=== PATIENT | female | born 1965 | race Caucasian/White ===

== ENCOUNTER → 2024-04-02 | Outpatient (CLI) | payer OTHER, SELFPAY ==
--- NOTE | 2024-04-02 13:54 | US_ITS ---
STUDY: THYROID ULTRASOUND REASON FOR EXAM: Female, 58 years old. MUTATION OF MUTYH GENE TECHNIQUE: Ultrasound evaluation of the thyroid was performed with real-time and static bear-scale imaging. COMPARISON: None. FINDINGS: RIGHT LOBE: The right lobe of the thyroid gland measures 4.9 x 2.1 x 1.9 cm. There is a heterogeneous echotexture. There are no demonstrated solid, cystic or complex lesions. LEFT LOBE: The left lobe of the thyroid gland measures 4.4 x 2 x 1.4 cm. There is a heterogeneous echotexture. Hypoechoic nodule measures 8 x 7 x 5 mm. It appears wider than tall does not have internal color blood flow or echogenic calcifications. It is gently lobulated and relatively well circumscribed. ISTHMUS: The isthmus measures 4 mm . The regional lymph nodes are normal. US/Thyroid IMPRESSION: Left thyroid nodule. This nodule is solid or almost completely solid, hypoechoic, asabf-bhho-tqrs, margins cannot be determined and contains no echogenic foci. TI-RADS points: 4. TI-RADS category: TR4. This nodule is moderately suspicious but no FNA or follow-up is necessary given the small size of this nodule. Electronically Signed: Roque Hitchcock MD at 14:47 EST ,
== END | disposition home or self-care (01) ==
PROVIDERS: PCP Internal Medicine; Referring Provider Internal Medicine; Visit Provider Internal Medicine
DX: D12.6 Benign neoplasm of colon, unspecified (principal); Z15.09 Genetic susceptibility to other malignant neoplasm
CPT/HCPCS: 76536

== ENCOUNTER → 2024-07-03 | Outpatient (CLI) | payer OTHER, SELFPAY ==
--- NOTE | 2024-07-03 10:56 | BI_ITS ---
PROCEDURE: SCRN MAMM (CAD)W/CEASAR BILAT REASON FOR EXAM: F, Age 59 y/o, mother with breast cancer. Grandmother with breast cancer. Aunts with breast cancer. TECHNIQUE: Bilateral screening digital breast tomosynthesis with 2D and 3D images. Computer aided detection. COMPARISON: No prior study available for comparison at this time. FINDINGS: There are scattered areas of fibroglandular density. Small bilateral benign- appearing axillary lymph nodes. No suspicious masses, areas of developing architectural distortion, or suspicious calcifications. BI/SCRN MAMM (CAD)W/CEASAR BILAT IMPRESSION: BI-RADS 2: BENIGN. RECOMMEND ANNUAL MAMMOGRAPHIC SCREENING. Follow-up code: Routine Follow-up The patient will be notified of the results by letter. Reading Location: [id number]
== END | disposition home or self-care (01) ==
LOC: OPBI 10:55
PROVIDERS: PCP Internal Medicine; Referring Provider Nurse Practitioner Family; Visit Provider Nurse Practitioner Family
DX: Z12.31 Encounter for screening mammogram for malignant neoplasm of breast (principal); Z80.3 Family history of malignant neoplasm of breast
CPT/HCPCS: 77063; 77067

== ENCOUNTER 2024-12-12 10:40 | Day surgery (SDC) | payer OTHER, SELFPAY ==
--- NOTE | 2024-12-12 10:51 | PCM.PRE.AN2 ---
ASA Classification* ASA Classification ASA Classification: 2 Assessment & Plan Anesthesia* Anesthesia Assessment Anesthesia Assessment: Discussed sedation and/or anesthesia options, risks, benefits, and alternatives with patient/parents/legal guardian/POA. Questions invited. The patient/parents/legal guardian/POA seems to understand and agrees to proceed with anesthesia plan. Reviewed the physical assessment, medical history, allergy history and patient home medications list prior to surgery/procedure/anesthetic and documented any changes. Performed airway and anesthesia risk assessments. Anesthesia Type Anesthesia Type: MAC Anesthesia Focused Assessment* Airway Assessment Mouth opens: >3 cm Mallampati Score: II Labs Anesthesia Preop lab: CBC CHEMISTRY COAG Pre-Assessment Diagnosis/Proposed Procedure Planned Operative Procedure(s): EGD COLONOSCOPY Anesthesia History Anesthesia History - training systems officer: Anesthesia History - training systems officer Hx Hospitalization No 12/10/24 10:15 Any Problems With Anesthesia No 12/10/24 10:15 Cholinesterase deficiency No 12/10/24 10:15 You/Your Family Experience No 12/10/24 10:15 fever (hyperthermia) with Relationship Recent Exposure to Contagious Disease Does patient have nerve No 12/10/24 10:15 stimulator Patient instructed to have device shut off --Does patient have Pacemaker or ICD? When Was Last Pacemaker Check QUESTION #4 FULL TEXT: You/Your Family Experience fever (hyperthermia) with Anesthesia Last Oral Intake Last Oral intake: Last Oral Intake NPO since Meds taken in AM with sips of water? Meds patient instructed to take am of surgery PONV PONV - training systems officer: PONV - training systems officer Female Yes 12/10/24 10:15 HX of Motion Sickness Yes 12/10/24 10:15 HX of N/V After Surgery No 12/10/24 10:15 Non-Smoker Yes 12/10/24 10:15 Duration of Surgery greater No 12/10/24 10:15 than 60 minutes Number of Risk Factors 3 12/10/24 10:15 PONV Score Moderate Risk 12/10/24 10:15 Height & Weight Height & Weight: Anesthesia: Height & Weight Height 5 ft 4 in 10/17/24 11:04 Respiratory Assessment Respiratory Assessment - training systems officer: Respiratory Tract Infection Hx - training systems officer Hx Respiratory Tract Infection No 12/10/24 10:15 STOP Sleep Apnea STOP Sleep Apnea - training systems officer: STOP Sleep Apnea - training systems officer Hx Hypertension Yes 12/10/24 10:15 Hx Sleep Apnea No 12/10/24 10:15 CPAP BIPAP Do you snore loudly (louder No 12/10/24 10:15 than talking or can be heard Do you often feel tired/ No 12/10/24 10:15 fatigued/ sleepy during daytime? Has anyone observed you stop No 12/10/24 10:15 breathing during sleep? STOP Results Negative 12/10/24 10:15 QUESTION #5 FULL TEXT : Do you snore loudly (louder than talking or can be heard through closed doors)? 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 Specify any problems Hx of Preganancy in last 3 No 12/10/24 10:15 Months Nurse Filling Out Transfusion MGRIFFITH 12/10/24 10:15 & Questions: Date: 12/10/24 12/10/24 10:15 Time: 10:15 12/10/24 10:15 Patient unable to answer at this time (ie. confused, unrespo /Reproduction History /Reproductive History - training systems officer: /Reproductive Hx- training systems officer Hx Now No 12/10/24 10:15 Gestational Age (in weeks): EDC: Hx Hx Para Hx Section SAB No 12/10/24 10:15 Active Medications Active Medications: Current Medications Generic Name Dose Route Start Last Admin Trade Name Freq PRN Reason Stop Dose Admin Lactated Ringer's 1,000 mls @ 15 mls/hr 12/12/24 10:45 IV .Q48H GEM PFSH Medical History Wears glasses MRSA infection Gastric reflux Non-smoker Monoallelic mutation of MUTYH gene Anxiety Vision problems Thyroid disease GERD (gastroesophageal reflux disease) High blood pressure Breast lump Back problem Arthritis Seasonal allergies Home Medications ?Medication ?Instructions ?Recorded ?Last Taken ?Type calcium carbonate 600 mg PO QDAY 04/19/24 Unknown History xapcuvmoaob-vzv-ijdtoorue-hrb 1 tab PO DAILY 04/19/24 Unknown History 149-hyalur 500 mg-500 mg-66.7 mg tablet (Jqlfhyiaoee-Chazwrngzav-YHY (with antiox)) montelukast 10 mg tablet 10 mg PO QDAY 04/19/24 Unknown History citalopram 20 mg tablet (Celexa) 40 mg PO QDAY 05/16/24 Unknown History lisinopril 10 mg tablet 10 mg PO QDAY #90 tabs 05/22/24 Unknown Rx fexofenadine 60 mg tablet (Jaz 180 mg PO QDAY 10/17/24 Unknown History Allergy) magnesium 250 mg tablet 400 mg PO QDAY 10/17/24 Unknown History meloxicam 15 mg tablet 15 mg PO QDAY PRN pain 10/17/24 Unknown History metoprolol succinate 50 mg 50 mg PO QDAY #90 tabs 10/31/24 Unknown Rx tablet,extended release 24 hr levothyroxine 50 mcg tablet 50 mcg PO QDAY #90 tabs 11/01/24 Unknown Rx (Synthroid) Allergy/AdvReac Type Severity Reaction Status Date / Time cefdinir (From Omnicef) Allergy Mild unknown Verified 12/07/24 11:23 Family History Father Heart disease Arthritis Cancer skin Diabetes type 2 Hypertension Dementia Urinary retention Kidney disease Mother Age related osteoporosis Hormone disorder related to breast cancer Cancer, Onset Age: 38 breast, hormone related age 38 then age 60 Thyroid disorder Aunt Breast cancer, Onset Age: 63 AAA negative Grandmother Breast cancer Hypertension CVA (cerebral vascular accident) Diabetes Glaucoma Brother Diabetes Hypertension Grandfather Myocardial infarction Aunt Breast cancer Surgical History History of D&C H/O colonoscopy H/O lateral meniscus repair of left knee History of surgery Social History household members: spouse housing: house current occupational status: employed 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
[2024-12-12 11:14] VITALS: BP 153/90; PULSE 74; RESP 16; TEMP 36.2; O2SAT 100; BMI 42.2
[2024-12-12] MEDS: Lactated Ringers 1,000 ML 15 ML IV (11:24)
--- NOTE | 2024-12-12 11:43 | PCM.HP.STD ---
HPI - General General Date of Admission: 01/09/25 Date of Service: 12/12/24 Chief Complaint: GERD and family history of colon cancer HPI Narrative ELISE JARAMILLO, is a 59 F who presents Chief Complaint: Photo surveillance of GERD and family history of colon cancer 1st cousin with colon CA at an early age (30's) - denies any change in bowel habits - denies any bleeding - h/o schatzki's ring - last dilated a few years ago - has trouble with swallowing liquids at times with cold liquids or drinking quickly - denies any trouble swallowing - she discontinued Omeprazole due to possibility of causing polyps - takes PRN - she reports HB is infrequent - she takes Meloxicam PRN - denies any heart or lung disease - non-smoker - rare EtOH use [facility] Medical History Wears glasses MRSA infection Gastric reflux Non-smoker Monoallelic mutation of MUTYH gene Anxiety Vision problems Thyroid disease GERD (gastroesophageal reflux disease) High blood pressure Breast lump Back problem Arthritis Seasonal allergies Home Medications ?Medication ?Instructions ?Recorded ?Last Taken ?Type calcium carbonate 600 mg PO QDAY 04/19/24 12/11/24 History jhvefkrniiy-omg-vrcpiwzyx-hrb 1 tab PO DAILY 04/19/24 12/11/24 History 149-hyalur 500 mg-500 mg-66.7 mg tablet (Xgdfebwxkng-Fzfbqdjrbcc-ALW (with antiox)) montelukast 10 mg tablet 10 mg PO QDAY 04/19/24 12/11/24 History citalopram 20 mg tablet (Celexa) 40 mg PO QDAY 05/16/24 12/11/24 History lisinopril 10 mg tablet 10 mg PO QDAY #90 tabs 05/22/24 12/12/24 06:30 Rx fexofenadine 60 mg tablet (Jaz 180 mg PO QDAY 10/17/24 12/11/24 History Allergy) magnesium 250 mg tablet 400 mg PO QDAY 10/17/24 12/11/24 History meloxicam 15 mg tablet 15 mg PO QDAY PRN pain 10/17/24 12/11/24 History metoprolol succinate 50 mg 50 mg PO QDAY #90 tabs 10/31/24 12/12/24 06:30 Rx tablet,extended release 24 hr levothyroxine 50 mcg tablet 50 mcg PO QDAY #90 tabs 11/01/24 12/11/24 Rx (Synthroid) Allergy/AdvReac Type Severity Reaction Status Date / Time cefdinir (From Omnicef) Allergy Mild unknown Verified 12/07/24 11:23 Family History Father Heart disease Arthritis Cancer skin Diabetes type 2 Hypertension Dementia Urinary retention Kidney disease Mother Age related osteoporosis Hormone disorder related to breast cancer Cancer, Onset Age: 38 breast, hormone related age 38 then age 60 Thyroid disorder Aunt Breast cancer, Onset Age: 63 AAA negative Grandmother Breast cancer Hypertension CVA (cerebral vascular accident) Diabetes Glaucoma Brother Diabetes Hypertension Grandfather Myocardial infarction Aunt Breast cancer Surgical History History of D&C H/O colonoscopy H/O lateral meniscus repair of left knee History of surgery Social History household members: spouse housing: house current occupational status: employed 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, Smoking Status: Never smoker alcohol intake: current alcohol intake frequency: holidays/special occasions only substance use type: does not use what type of physical activity do you participate in: none seatbelt use: always do you feel safe at home: Yes 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 history: 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) ROS Constitutional Constitutional: Denies fatigue, fever(s), poor appetite, weight gain or weight loss Gastrointestinal Gastrointestinal: Denies belching, bloating, change in bowel habits, change in stool character, chewing difficulty, coffee ground emesis, constipation, cramping, diarrhea, dyspepsia, dysphagia, early satiety, excessive flatus, fecal incontinence, heartburn, hematemesis, hematochezia, hemorrhoids, loose stools, melena, nausea, odynophagia, rectal bleeding, tenesmus, vomiting or weight changes Vital Signs Vital Signs Vital Signs: 12/12/24 11:14 12/12/24 11:14 Temperature 97.1 F L Temperature Source Temporal Pulse Rate 74 Respiratory Rate 16 Respiratory Pattern Normal Blood Pressure 153/90 H Blood Pressure Mean 111 Blood Pressure Source Monitor Blood Pressure Position Sitting Blood Pressure Location Right Arm Pulse Ox 100 Oxygen Delivery Method Room Air Weight Weight: 253 lb 8.505 oz Body Mass Index (BMI) 42.2 Physical Exam Const alert, oriented x3, no apparent distress and healthy appearing General Appearance: cooperative GI normal to inspection, nondistended, normoactive bowel sounds, soft to palpation, non-tender and non-distended Percussion: normal to percussion Rectal Exam: deferred Assessment & Plan Assessment/Plan (1) GERD (gastroesophageal reflux disease): (2) H/O colonoscopy: (3) Monoallelic mutation of MUTYH gene: PLAN: Assessment and Plan Assessment and Plan (1) Monoallelic mutation of MUTYH gene: Status: Acute Comment: Genetic testing 08/15/2018, MUTYH, c.536A>G ([id number]). 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 Her last procedures were performed November 2023 and I have requested a copy of her previous procedure reports. She also reports a history of GERD with schatzki's ring, last dilation approximately 3 years ago. HB symptoms are infrequent and is taking PPI PRN. She reports only experiencing dysphagia with cold liquids and drinking fast; denies any dysphagia to solids. She will proceed with bidirectional endoscopies. Note: [employer] speech recognition baggage handling supervisor software was used to create portions of this document. Sound-alike and misspelled words, as well as other baggage handling supervisor errors may be contained in the documentation. Patient Instructions: Colon & EGD - Miralax prep
--- NOTE | 2024-12-12 11:45 | EGD_PTH ---
PATIENT: ELISE JARAMILLO LOC: EN U#:[id number] AGE/SX: 59/F ROOM: RE12/12/[address]: Dr. Rishi Tse DO : 1965 BED: DIS: 12/12/2024 SPEC #: [id number] RECD: 12/12/24 13:35 STATUS: DANIELLA NAVDEEP #: [id number] MALENA: 12/12/24 11:[address]: Rishi Tse DEPT: SURGICAL PATHOLOGY RECD BY: Guanakito Ceja ENTERED: 12/12/24 14:41 SP TYPE: EGD BIOPSY ADALGISA DR: Dr. Marcelina Anderson MD Tissues: A - Esophagus, NOS Procedures: Surgery Specimen Level IV HEADER OPERATION: Colonoscopy, EGD and biopsy PRE-OP DIAGNOSIS: GERD and family history of colon cancer TISSUE SUBMITTED: A- Distal esophagus biopsy MICROSCOPIC DIAGNOSIS A. 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 GROSS DESCRIPTION A. Received in fixative is one container labeled with the patient's name and designated Distal esophagus biopsy. The specimen consists of two irregular fragments of light bermudez tissue that measure 0.3 and 0.5 cm. The specimen is totally submitted in one cassette. OR 12/12/2024 CPT:76252
[2024-12-12 12:40] VITALS: BP 121/65; BP 153/90; PULSE 65; RESP 14; TEMP 36.3; O2SAT 95
--- NOTE | 2024-12-12 12:42 | OP.EGD_ITS ---
Patient Name: Rylee Roper Procedure Date: 12/12/2024 12:15 PM Date of : 1965 Age: 59 Procedure: Upper GI endoscopy Indications: Esophageal reflux Providers: Rishi Tse DO Medicines: Monitored Anesthesia Care Patient Profile: This is a 59 year old female. Refer to note in patient chart for documentation of history and physical. Patient has symptoms of chronic heartburn. Complications: No immediate complications. Procedure: Pre-Anesthesia Assessment: - Prior to the procedure, a History and Physical was performed, and patient medications and allergies were reviewed. The patient is competent. The risks and benefits of the procedure and the sedation options and risks were discussed with the patient. All questions were answered and informed consent was obtained. Patient identification and proposed procedure were verified by the physician in the pre-procedure area. Mental Status Examination: alert and oriented. Airway Examination: normal oropharyngeal airway and neck mobility. Respiratory Examination: clear to auscultation. CV Examination: normal. Prophylactic Antibiotics: The patient does not require prophylactic antibiotics. Prior Anticoagulants: The patient has taken no anticoagulant or antiplatelet agents except for NSAID medication. ASA Grade Assessment: II - A patient with mild systemic disease. After reviewing the risks and benefits, the patient was deemed in satisfactory condition to undergo the procedure. The anesthesia plan was to use monitored anesthesia care (MAC). Immediately prior to administration of medications, the patient was re-assessed for adequacy to receive sedatives. The heart rate, respiratory rate, oxygen saturations, blood pressure, adequacy of pulmonary ventilation, and response to care were monitored throughout the procedure. The physical status of the patient was re-assessed after the procedure. After obtaining informed consent, the endoscope was passed under direct vision. Throughout the procedure, the patient's blood pressure, pulse, and oxygen saturations were monitored continuously. The Colonoscope was introduced through the mouth, and advanced to the second part of duodenum. The upper GI endoscopy was accomplished without difficulty. The patient tolerated the procedure well. Scope In: 12:23:37 PM Scope Out: 12:26:01 PM Total Procedure Duration Time 0 hours 2 minutes 24 seconds Findings: The Z-line was irregular and was found 40 cm from the incisors. Biopsies were taken with a cold forceps for histology. A few diminutive hyperplastic polyps with no bleeding and no stigmata of recent bleeding were found in the gastric fundus and in the gastric body. No gross lesions were noted in the entire examined duodenum. Impression: - Z-line irregular, 40 cm from the incisors. Biopsied. - A few gastric polyps. - No gross lesions in the entire examined duodenum. Recommendation: - Await pathology results. - Repeat upper endoscopy for surveillance. - Continue present medications. Procedure Code(s): --- Professional --- 18422, Esophagogastroduodenoscopy, flexible, transoral; with biopsy, single or multiple CPT copyright 2021 [employer]. All rights reserved. The codes documented in this report are preliminary and upon braille coder review may be revised to meet current compliance requirements. Rishi Tse DO 12/12/2024 12:41:49 PM This report has been signed electronically. Number of Addenda: 0 Note Initiated On: 12/12/2024 12:15 PM
--- NOTE | 2024-12-12 12:42 | OP.PROVAT_ITS ---
12/12/2024 Marcelina Anderson Md Re : Upper GI endoscopy procedure for Rylee Roper Dear Monica This procedure was performed on Thursday, December 12, 2024. My impressions and recommendations are as follows: Impressions : - Z-line irregular, 40 cm from the incisors. Biopsied. - A few gastric polyps. - No gross lesions in the entire examined duodenum. Recommendations : - Await pathology results. - Repeat upper endoscopy for surveillance. - Continue present medications. My findings are described in the full procedure note, which is enclosed. If I can be of further assistance, please feel free to contact me at . Sincerely, Rishi Tse, 12/12/2024 12:41:49 PM This report has been signed electronically.
--- NOTE | 2024-12-12 12:44 | OP.PROVAT_ITS ---
12/12/2024 Marcelina Anderson Md Re : Colonoscopy procedure for Rylee Roper Dear Monica This procedure was performed on Thursday, December 12, 2024. My impressions and recommendations are as follows: Impressions : - Diverticulosis in the recto-sigmoid colon and in the sigmoid colon. - No specimens collected. Recommendations : - Discharge patient to home. - Resume previous diet. - Continue present medications. - Repeat colonoscopy. My findings are described in the full procedure note, which is enclosed. If I can be of further assistance, please feel free to contact me at . Sincerely, Rishi Tse, 12/12/2024 12:43:54 PM This report has been signed electronically.
--- NOTE | 2024-12-12 12:44 | OP.COLON_ITS ---
Patient Name: Rylee Roper Procedure Date: 12/12/2024 12:26 PM Date of : 1965 Age: 59 Procedure: Colonoscopy Indications: Screening for colorectal malignant neoplasm Providers: Rishi Tse DO Medicines: Monitored Anesthesia Care Patient Profile: This is a 59 year old female. Refer to note in patient chart for documentation of history and physical. Patient has symptoms of chronic heartburn. Last Colonoscopy: several years ago. Complications: No immediate complications. Procedure: Pre-Anesthesia Assessment: - Prior to the procedure, a History and Physical was performed, and patient medications and allergies were reviewed. The patient is competent. The risks and benefits of the procedure and the sedation options and risks were discussed with the patient. All questions were answered and informed consent was obtained. Patient identification and proposed procedure were verified by the physician in the pre-procedure area. Mental Status Examination: alert and oriented. Airway Examination: normal oropharyngeal airway and neck mobility. Respiratory Examination: clear to auscultation. CV Examination: normal. Prophylactic Antibiotics: The patient does not require prophylactic antibiotics. Prior Anticoagulants: The patient has taken no anticoagulant or antiplatelet agents except for NSAID medication. ASA Grade Assessment: II - A patient with mild systemic disease. After reviewing the risks and benefits, the patient was deemed in satisfactory condition to undergo the procedure. The anesthesia plan was to use monitored anesthesia care (MAC). Immediately prior to administration of medications, the patient was re-assessed for adequacy to receive sedatives. The heart rate, respiratory rate, oxygen saturations, blood pressure, adequacy of pulmonary ventilation, and response to care were monitored throughout the procedure. The physical status of the patient was re-assessed after the procedure. After I obtained informed consent, the scope was passed under direct vision. Throughout the procedure, the patient's blood pressure, pulse, and oxygen saturations were monitored continuously. The Colonoscope was introduced through the anus and advanced to the cecum, identified by appendiceal orifice and ileocecal valve. The colonoscopy was performed without difficulty. The patient tolerated the procedure well. The quality of the bowel preparation was adequate. The ileocecal valve, appendiceal orifice, and rectum were photographed. Scope In: 12:27:21 PM Scope Withdrawal Time 0 hours 5 minutes 12 seconds Scope Out: 12:35:48 PM Total Procedure Duration Time 0 hours 8 minutes 27 seconds Findings: The perianal and digital rectal examinations were normal. A few small-mouthed diverticula were found in the recto-sigmoid colon and sigmoid colon. Impression: - Diverticulosis in the recto-sigmoid colon and in the sigmoid colon. - No specimens collected. Recommendation: - Discharge patient to home. - Resume previous diet. - Continue present medications. - Repeat colonoscopy. Procedure Code(s): --- Professional --- 39154, Colonoscopy, flexible; diagnostic, including collection of specimen(s) by brushing or washing, when performed (separate procedure) CPT copyright 2021 [employer]. All rights reserved. The codes documented in this report are preliminary and upon clinical coder review may be revised to meet current compliance requirements. Rishi Tse DO 12/12/2024 12:43:54 PM This report has been signed electronically. Number of Addenda: 0 Note Initiated On: 12/12/2024 12:26 PM
--- NOTE | 2024-12-12 12:44 | PCM.POST.ANE ---
Anesthesia: Postop Eval I Current Vital Signs Temperature: 97.4 F Pulse Rate: 61 Blood Pressure: 121/65 Respiratory Rate: 16 Pulse Ox: 96 Oxygen Delivery Method: Room Air Assessment Airway patent: Yes Spontaneous unlabored respirations: Yes Mental status: Asleep nausea: No Vomiting: No Anesthesia Complication: No Fluid Hydration Crystalloid volume administer (ml): 600 Total IV fluid infused: 600 Progress Note Anesthesia document: Postop Eval 1 completed: Yes
[2024-12-12 12:45] VITALS: BP 112/69; BP 121/65; BP 153/90; PULSE 61; PULSE 62; RESP 14; RESP 16; TEMP 36.3; O2SAT 95; O2SAT 96
[2024-12-12 12:50] VITALS: BP 116/65; BP 153/90; PULSE 64; RESP 14; O2SAT 95
[2024-12-12 12:55] VITALS: BP 124/70; BP 153/90; PULSE 60; RESP 14; TEMP 36.2; O2SAT 95
[2024-12-12 13:02] VITALS: BP 153/90
--- OUTSIDE RECORDS SUMMARY | 2024-12-12 13:13 | XMS RPT_ITS | CCD ---
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 Name Role Phone SAMRA DUNN ([facility]) Attending Unavaila Leidy Min Primary Care Physician Mike Peralta III Primary Care Physician MITESH MORSE Attending Unavailable MOODT, HARSH Referring Unavailable MITESH MORSE Attending Unavailable MOODT, HARSH Referring Unavailable BRIAN, OLGA Ortiz Attending Unavailable BRIANOLGA Referring Unavailable MITESH MORSE Attending Unavailable MOODT, HARSH Referring Unavailable MITESH MORSE Attending Unavailable MOODT, HARSH Referring Unavailable Louise Whipple Attending Unavailable LOUISE WHIPPLE MD Attending Provider LOUISE WHIPPLE MD Referring Provider Dr. Marcelina Anderson MD Primary Care Provider [phone] Dr. Marcelina Anderson MD Attending Provider Dr. Marcelina Anderson MD Referring Provider Gladis Mccollum Attending Provider Gladis Mccollum Referring Provider Dr. Marcelina Anderson MD Primary Care Provider Gladis Mccollum Attending Provider Dr. Marcelina Anderson MD Referring Provider Jayashree Harvey Attending Provider Paul Landaverde Admitting Paul Nolasco Attending Unavaila Paul Herrera Referring Unavaila ble Monica, Marcelina Primary Care Unavailable LOUISE WHIPPLE Attending Unavailable LOUISE WHIPPLE Referring Unavailable Mccormick, Marcelina Attending Unavailable Monica, Marcelina Primary Care Unavailable Mccormick, Marcelina Referring Unavailable Gladis Espinal Attending Unavailable Mccormick, Marcelina Referring Unavailable Jayashree Deleon Attending Unavailable Monica, Marcelina Primary Care Unavailable Monica, Marcelina Primary Care Unavailable Gladis Espinal Attending Unavailable Gladis Espinal Referring Unavailable Monica, Marcelina Primary Care Unavailable Rishi Tse Attending Unavailable Allergies Allergy Classification Reported Allergen(s) Allergy Type Date of Onset Reaction(s) Facility (20 sources) cefdinir; Translations: [cefdinir] Drug Allergy 5 Nausea and Vomiting, Unknown [facility] (1 source) cefdinir Drug Allergy 5 [facility] Repository Medications Current Medications Medication Drug Class(es) Dates Sig (Normalized) Sig (Original) Acidophilus Probiotic Blend (5 sources) Start: 06-16-2023 take 1 capsule by mouth once daily Acidophilus Probiotic Blend 1 cap(s), Oral, Daily, Refill(s) 0, Prophylaxis Start Date: 06/16/23 Status: Ordered Start: 06-16-2023 Acidophilus Pr obiotic Blend Oral, Daily, Refill(s) 0 Start Date: 06/16/23 Status: Ordered bifidobacterium infantis 4 mg oral capsule (2 sources) Start: 09-28-2022 End: 12-27-2022 take 1 capsule by mouth once daily Align 4 mg oral capsule 4 mg = 1 cap(s), Oral, Daily, X 90 day(s), # 90 cap(s), Refills(s) 0, Pharmacy: [facility], 170, cm, 09/28/22 10:07:00 EDT, Height/Length Dosing, 117.9, kg, 09/28/22 10:07:00 EDT, Weight Dosing Start Date: 09/28/22 Stop Date: 12/27/22 Status: Ordered calcium carbonate 1500 mg oral tablet (2 sources) Start: 04-19-2024 take 1 tablet by mouth once daily Calcium Carbonate 600 mg calcium (1,500 mg) tablet Active 600 mg PO daily April 19, 2024 1:00am calcium citrate 950 mg oral tablet (14 sources) Start: 04-28-2021 calcium (as ca lcium citrate) 200 mg oral tablet 950 mg = 1 tab(s), Oral, Daily, Refills(s) 0, Prophylaxis Start Date: 04/28/21 Status: Ordered Fiber Tab (5 sources) Start: 06-16-2023 take 1 tablet by mouth four times daily Fiber Tabs mg, Oral, QID, Refills(s) 0, Constipation Start Date: 06/16/23 Status: Ordered Start: 06-16-2023 take 1 tablet by deja th four times daily Fiber Tabs mg, Oral, QID, Refills(s) 0 Start Date: 06/16/23 Status: Ordered Chondroitin Sulfates / Glucosamine (14 sources) Start: 11-17-2018 take 1 tablet by mouth once daily Glucosamine Chondroitin 1 tab, Oral, Daily, Refill(s) 0, Prophylaxis Start Date: 11/17/18 Status: Ordered citalopram 20 mg oral tablet (18 sources) Serotonin Reuptake Inhibitor Start: 05-16-2024 take 2 tablets by mouth once daily Citalopram (Celexa) 20 mg tablet Active 40 mg PO daily May 16, 2024 3:03pm Start: 04-19-2024 End: 05-16-2024 take 1 tablet by mouth once daily Citalopram (Celexa) 20 mg tablet Discontinued 20 mg PO daily April 19, 2024 1:00am May 16, 2024 3:03pm Start: 04-18-2013 take 40 mg by mouth once daily Celexa 40 mg, Oral, Daily, Refills(s) 0, Anxiety Start Date: 04/18/13 Status: Ordered fexofenadine hydrochloride 60 mg oral tablet (17 sources) Histamine-1 Receptor Antagonist Start: 10-17-2024 take 3 tablets by mouth once daily Fexofenadine (Jaz Allergy) 60 mg tablet Active 180 mg PO daily October 17, 2024 10:10am Start: 04-19-2024 End: 10-17-2024 take 1 tablet by mouth twice daily Fexofenadine (Jaz Allergy) 60 mg tablet Discontinued 60 mg PO TWICE A DAY April 19, 2024 1:00am October 17, 2024 10:13am Start: 11-17-2018 take 180 mg by mouth once taras y Jaz 180 mg, Oral, Daily, Refills(s) 0, Allergy symptoms Start Date: 11/17/18 Status: Ordered Ngvzlqvz-Umb-Pgfoe-Iqk190-Of al (Etpnqy-Leccd-Fpw (With Antiox)) 500-500-66.7 mg tablet (2 sources) Start: 04-19-2024 Mpbmmsua-Uui-Nkmup-Fco361-Mq al (Wvqaxt-Nndwq-Azs (With Antiox)) 500-500-66.7 mg tablet Active {tbl} PO April 19, 2024 1:00am levothyroxine sodium 0.05 mg oral tablet (17 sources) l-T hyr oxi ne Start: 10-17-2024 Levothyroxine (Synthroid) 50 mcg tablet Active 25 ug PO daily October 17, 2024 10:11am Start: 04-19-2024 End: 10-17-2024 take 1 tablet by mouth once daily Levothyroxine (Synthroid) 50 mcg tablet Discontinued 50 ug PO daily April 19, 2024 1:00am October 17, 2024 10:13am Start: 11-17-2018 Synthroid 25 m icrogram, Oral, Daily, Refills(s) 0, Thyroid Start Date: 11/17/18 Status: Ordered lisinopril 10 mg oral tablet (18 sources) Angiotensin Converting Enzyme Inhibitor Start: 04-19-2024 End: 05-22-2024 take 1 tablet by mouth once daily Lisinopril 10 mg tablet Active 10 mg PO daily May 22, 2024 1:34pm Start: 04-18-2013 take 10 mg by mouth once daily lisinopril 10 mg, Oral, Daily, Refills(s) 0, High blood pressure Start Date: 04/18/13 Status: Ordered Magnesium (3 sources) Start: 10-17-2024 Magnesium 250 mg tablet Active 400 mg PO daily October 17, 2024 10:13am Start: 04-19-2024 End: 10-17-2024 take 1 tablet by mouth once daily Magnesium 250 mg tablet Discontinued 250 mg PO daily April 19, 2024 1:00am October 17, 2024 10:13am Start: 04-19-2024 take 1 tablet by deja once daily Magnesium 250 mg tablet Active 250 mg PO daily April 19, 2024 1:00am magnesium oxide 250 mg oral tablet (14 sources) Start: 04-18-2013 take 2 tablets by mouth once daily magnesium oxide 250 mg oral tablet 500 mg = 2 tab(s), Oral, Daily, Refills(s) 0, Prophylaxis Start Date: 04/18/13 Status: Ordered meloxicam 15 mg oral tablet (6 sources) Nonsteroidal Anti-inflammatory Drug Start: 04-19-2024 End: 10-17-2024 take 1 tablet by mouth once daily as needed Meloxicam 15 mg tablet Active 15 mg PO daily as needed October 17, 2024 10:13am Start: 11-16-2023 take 1 tablet by deja once daily meloxicam 15 mg Tab 15 mg = 1 tab(s), Oral, Daily, Refills(s) 0 Start Date: 11/16/23 Status: Ordered 24 hr metoprolol succinate 50 mg extended release oral tablet (18 sources) beta-Adrenergic Junior Start: 04-19-2024 End: 05-22-2024 take 1 tablet by mouth once daily Metoprolol Succinate 50 mg tablet extended release 24 hr Active 50 mg PO daily May 22, 2024 1:34pm Start: 11-17-2018 take 1 tablet by deja once daily Metoprolol succinate 25 mg ER Tablet 25 mg, Oral, Daily, Refills(s) 0, High blood pressure Start Date: 11/17/18 Status: Ordered Start: 11-17-2018 take 1 tablet by [facility] once daily Metoprolol succinate 25 mg ER Tablet 25 mg, Oral, Daily, Refills(s) 0, High blood pressure Start Date: 11/17/18 Status: Ordered montelukast 10 mg oral tablet (16 sources) Leukotriene Receptor Antagonist Start: 04-19-2024 take 1 tablet by mouth once daily Montelukast 10 mg tablet Active 10 mg PO daily April 19, 2024 1:00am Start: 11-20-2018 take 10 mg by mouth once daily montelukast 10 mg, Oral, Daily, Refills(s) 0, Allergy symptoms Start Date: 11/20/18 Status: Ordered polyethylene glycol 3350 [id number] mg / potassium chloride 1480 mg / sodium bicarbonate 5720 mg / sodium chloride 20075 mg powder for oral solution (5 sources) Osmotic Laxative Start: 02-22-2022 take 1 dose by mouth once NuLYTELY [place] oral powder for reconstitution See Instructions, 1 EA, Refill(s) 0, prior to colonoscopy, per physician instructions, [facility], 170, cm, 02/18/22 12:56:00 EDT, Height/Length Dosing, 114.7, kg, 02/18/22 12:56:00 EDT, Weight Dosing Start Date: 02/22/22 Status: Ordered predniSONE 20 mg oral tablet (1 source) Start: 09-08-2022 End: 09-13-2022 take 3 tablets by mouth once daily predniSONE 20 mg Tab 60 mg = 3 tab(s), Oral, Daily, X 5 day(s), # 15 tab(s), Refills(s) 0, Pharmacy: [facility], 170, cm, 09/08/22 20:53:00 EDT, Height/Length Dosing, 114.7, kg, 09/08/22 20:53:00 EDT, Weight Dosing Start Date: 09/08/22 Stop Date: 09/13/22 Status: Ordered psyllium 525 mg oral capsule (2 sources) Start: 09-28-2022 End: 12-27-2022 take 1 capsule by mouth once daily Metamucil 525 mg oral capsule 1 cap., Oral, Daily, X 90 day(s), # 90 cap(s), Refills(s) 0, Pharmacy: [facility] 1986, 170, cm, 09/28/22 10:07:00 EDT, Height/Length Dosing, 117.9, kg, 09/28/22 10:07:00 EDT, Weight Dosing Start Date: 09/28/22 Stop Date: 12/27/22 Status: Ordered vitamin B12 (11 sources) Vitamin B12 Start: 11-17-2018 Vitamin B12 1, 000 microgram, Oral, Daily, Refills(s) 0, Prophylaxis Start Date: 11/17/18 Status: Ordered Vitamin D (7 sources) Start: 09-28-2022 Vitamin D 50,0 00 International_Unit, Oral, qWeek, Refills(s) 0, Prophylaxis Start Date: 09/28/22 Status: Ordered Start: 09-28-2022 Vitamin D Refi lls(s) 0 Start Date: 09/28/22 Status: Ordered Walker (14 sources) Start: 12-12-2019 Kuldeep Light, Instructions on use, dispense one unit, Print Requisition, Supply Start Date: 12/12/19 Status: Ordered Zinc (6 sources) Start: 04-28-2021 Zinc 140 mg (a s elemental zinc 50 mg) oral tablet 140 mg = 1 tab(s), Oral, Daily, Refills(s) 0, Prophylaxis Start Date: 04/28/21 Status: Ordered Completed/Discontinued Medications Medication Drug Class(es) Dates Sig (Normalized) Sig (Original) omeprazole 40 mg delayed release oral capsule (7 sources) Proton Pump Inhibitor Start: 04-19-2024 End: 10-17-2024 take 1 capsule by mouth once daily Omeprazole 40 mg capsule,delayed release(DR/EC) Discontinued 40 mg PO daily April 19, 2024 1:00am October 17, 2024 10:10am Start: 06-16-2023 omeprazole 40 mg Cap-DR Refills(s) 0 Start Date: 06/16/23 Status: Ordered Start: 12-14-2022 End: 06-12-2023 take 1 capsule by mouth once daily omeprazole 40 mg Cap-DR 40 mg = 1 cap(s), Oral, Daily, X 90 day(s), # 90 cap(s), Refills(s) 1, Pharmacy: [facility], 170, cm, 12/14/22 10:51:00 EDT, Height/Length Dosing, 118.9, kg, 12/14/22 10:51:00 EDT, Weight Dosing Start Date: 12/14/22 Stop Date: 06/12/23 Status: Ordered Start: 09-15-2022 take 1 capsule by mo [facility] once daily omeprazole 40 mg Cap-DR 40 mg = 1 cap(s), Oral, Daily, # 30 cap(s), Refills(s) 2, Pharmacy: [facility], 170, cm, 09/15/22 10:43:00 EDT, Height/Length Dosing, 114.7, kg, 09/15/22 10:43:00 EDT, Weight Dosing Start Date: 09/15/22 Status: Ordered Problems Active Problems Problem Classification Problem Date Documented Da te Episodic/Chronic Administrative/social admission (1 source) First encounter by subject; Translations: [Persons encountering health services in other specified circumstances] 04-19-2024 Episodic Anxiety disorders (15 sources) Anxiety; Translations: [Anxiety disorder, unspecified] 04-18-2013 Chronic Esophageal disorders (20 sources) Gastro-esophageal reflux disease with esophagitis; Translations: [Gastroesophageal reflux disease without esophagitis] Onset: 12-14-2022 04-10-2020 Chronic Essential hypertension (15 sources) Hypertensive disorder; Translations: [Essential hypertension] 04-18-2013 Chronic Gastroduodenal ulcer (except hemorrhage) (7 sources) Antral ulcer 09-28-2022 Chronic Hemorrhoids (7 sources) Hemorrhoids 09-28-2022 Episodic Menstrual disorders (14 sources) Menorrhagia 05-01-2013 Chronic Osteoarthritis (14 sources) Arthritis 04-18-2013 Chronic Other and unspecified benign neoplasm (5 sources) Benign neoplasm of colon; Translations: [Benign neoplasm of colon, unspecified] Onset: 02-17-2022 Episodic Other and unspecified benign neoplasm (16 sources) Gastric polyp 04-10-2020 Episodic Other and unspecified benign neoplasm (14 sources) MYH-associated polyposis 03-03-2020 Episodic Other and unspecified benign neoplasm (7 sources) Polyp of colon 09-28-2022 Episodic Other and unspecified benign neoplasm (9 sources) History of polyp of colon; Translations: [Personal history of colonic polyps] Onset: 12-14-2022 Episodic Other and unspecified benign neoplasm (1 source) Benign neoplasm of stomach; Translations: [Benign neoplasm of stomach] Onset: 12-23-2023 Episodic Other and unspecified benign neoplasm (1 source) Lipoma (clinical); Translations: [Benign lipomatous neoplasm, unspecified] 04-19-2024 Episodic Other disorders of stomach and duodenum (7 sources) Hyperplasia of [place] glands of duodenum 09-28-2022 Episodic Other disorders of stomach and duodenum (1 source) Disorder of stomach; Translations: [Other diseases of stomach and duodenum] Onset: 12-14-2022 Episodic Other gastrointestinal disorders (14 sources) Dysphagia 03-03-2020 Episodic Other gastrointestinal disorders (8 sources) Abdominal wind pain; Translations: [Gas pain] Onset: 12-14-2022 09-28-2022 Episodic Other non-traumatic joint disorders (1 source) Pain in unspecified knee; Translations: [Pain of joint of knee] Onset: 09-08-2022 Episodic Other non-traumatic joint disorders (1 source) Pain in right knee; Translations: [Chronic pain of both knees] 04-19-2024 Episodic Other upper respiratory disease (14 sources) Seasonal allergic rhinitis 04-18-2013 Chronic Other upper respiratory disease (1 source) Seasonal allergy; Translations: [Other seasonal allergic rhinitis] 04-19-2024 Chronic Residual codes; unclassified (1 source) Family history of malignant neoplasm of breast; Translations: [Family history of malignant neoplasm of breast] Onset: 08-07-2018 Episodic Residual codes; unclassified (14 sources) Family history of malignant neoplasm of breast in first degree relative 02-01-2020 Episodic Residual codes; unclassified (2 sources) Family history of malignant neoplasm of digestive organ; Translations: [Family history of malignant neoplasm of digestive organs] Onset: 06-16-2023 Episodic Residual codes; unclassified (5 sources) Family history of cancer of colon 06-16-2023 Episodic Residual codes; unclassified (4 sources) Genetic mutation; Translations: [Genetic susceptibility to other disease] 04-19-2024 Episodic Comment on above: Genetic testing 2018, MUTYH, c.536A>G ([id number]). 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 Residual codes; unclassified (2 sources) History of colonoscopy; Translations: [Other specified postprocedural states] 05-18-2024 Episodic Comment on above: 11/2023 Residual codes; unclassified (1 source) Medication refused; Translations: [Immunization not carried out because of patient refusal] 04-19-2024 Episodic Residual codes; unclassified (1 source) Genetic susceptibility to other disease; Translations: [Genetic susceptibility to other disease] Onset: 10-17-2024 Episodic Thyroid disorders (1 source) Acquired hypothyroidism; Translations: [Hypothyroidism, unspecified] 04-19-2024 Chronic Unclassified (2 sources) Monoallelic mutation of MUTYH gene; Translations: [Z15.89 - Genetic susceptibility to other disease] Unclassified (1 source) Z12.4 - Encounter for screening for malignant neoplasm of cervix Past or Other Problems Problem Classification Problem Date Documented Date Episodic/Chronic Other and unspecified benign neoplasm (1 source) Benign neoplasm of colon, unspecified; Translations: [Benign neoplasm of colon, unspecified] Onset: 04-29-2024 Episodic Other screening for suspected conditions (not mental disorders or infectious disease) (17 sources) Culture positive for methicillin resistant Staphylococcus aureus; Translations: [Cancer cervix screening status] Onset: 01-26-2020 01-29-2020 Episodic Comment on above: MRSA breast abscess 01/26/2020 Results Test Name Value Interpretation Reference Range Facility Patient [facility] Patient Letter [facility] October 29, 2024 RYLEE ROPER [address] [place] [id number] : 1965 Dear Rylee, This is a reminder that you are due for an appointment with [facility] for an EGD. Please contact our office at [phone] to schedule an appointment at your earliest convenience. Thank you, [facility] Normal [facility] Reminderson 10-29-2024 Reminders Reminders From: Jessica THORNE, Darleen S To: [facility] - Reminders/Recalls; Sent: 11/28/2023 13:25:25 EDT Show up: 10/07/2024 13:25:00 EDT Subject: EGD/Colon recall Due Date/Time: 11/15/2024 13:25:00 EDT Reminder/Recall 1 year EGD/Colon Dr Whipple 11/16/23 EGD 2024 Colon 2025- new reminder placed for colonoscopy recall letter for EGD Normal [facility] Gastroenterology Visit Repor ton 10-17-2024 Gastroenterology Visit Report [facility] [address] [place] [address] OFFICE VISIT Date of Service: 10/17/24 MR#: [id number] Acct: [id number] Name: RYLEE ROPER Rep #: [id number] : 1965 Provider: LOAN jackson Age/Sex: 59/F Location: [facility] Status: Signed with Addenda ADDENDUM by Mary Anne Guerrero on 10/17/24 at 1105 HPI Details: RYLEE ROPER, is a 59 F who presents to the office today for Vital Signs 04/19/24 13:35 05/16/24 13:41 10/17/24 11:04 Height 5 ft 4 in 5 ft 4 in 5 ft 4 in Weight: 259 lb 2 oz BMI 44.4 BP 144/74 H Respiration 18 Pulse 73 Pulse Oximetry (%) 95 Oxygen Delivery Method room air 11/06/24 0759 Date Jayashree Deleon cc: * Signed Intake Vital Signs 04/19/24 13:35 05/16/24 13:41 Height 5 ft 4 in 5 ft 4 in Weight: 256 lb BMI 43.9 BP 120/78 Blood Pressure Location Lt brachial Position Sitting Respiration 16 Pulse 68 Pulse Source Monitor Temp 97.6 F L Temp Source Temporal Pulse Oximetry (%) 97 Oxygen Delivery Method room air Intake Visit Reasons: Pre colon Chief Complaint: est care Roustabout Crew Required: No Accompanied by: Self Is patient in pain?: No Allergies cefdinir (From [employer]) Allergy (Mild, Verified 10/17/24 10:08) unknown Medications ???Medication ???Instructions ???Recorded ???Confirmed ???Type calcium carbonate 600 mg PO QDAY 04/19/24 10/17/24 H istory jmefbxuflya-dwz-xvexwurql -hrb tab PO 04/19/24 10/17/24 History 149-hyalur 500 mg-500 mg-66.7 mg tablet (Glucosamine-Chondroitin- MSM (with antiox)) montelukast 10 mg tablet 10 mg PO QDAY 04/19/24 10/17/24 Hi story citalopram 20 mg tablet (Celexa) 40 mg PO QDAY 05/16/24 10/17/24 Hi story lisinopril 10 mg tablet 10 mg PO QDAY #90 tabs 05/22/24 Rx metoprolol succinate 50 mg 50 mg PO QDAY #90 tabs 05/22/24 Rx tablet,extended release 24 hr fexofenadine 60 mg tablet (Jaz 180 mg PO QDAY 10/17/24 10/17/24 History Allergy) levothyroxine 50 mcg tablet 25 mcg PO QDAY 10/17/24 10/17/24 H istory (Synthroid) magnesium 250 mg tablet 400 mg PO QDAY 10/17/24 10/17/24 H istory meloxicam 15 mg tablet 15 mg PO QDAY PRN 10/17/24 5 History Nurse's Note: Has been choking on water again and has history of Schatzki ring. Gets a colonoscopy every year. ` [facility] Medical History (Updated 10/17/24 @ 10:40 by LOAN Lowry) Monoallelic mutation of MUTYH gene Anxiety Vision problems Thyroid disease GERD (gastroesophageal reflux disease) High blood pressure Breast lump Back problem Arthritis Seasonal allergies Surgical History H/O colonoscopy H/O lateral meniscus repair of left knee History of surgery Family History Father Heart disease Arthritis Cancer skin Diabetes type 2 Hypertension Dementia Urinary retention Kidney disease Mother Age related osteoporosis Hormone disorder related to breast cancer Cancer, Onset Age: 38 breast, hormone related age 38 then age 60 Thyroid disorder Aunt Breast cancer, Onset Age: 63 AAA negative Grandmother Breast cancer Hypertension CVA (cerebral vascular accident) Diabetes Glaucoma Brother Diabetes Hypertension Grandfather Myocardial infarction Aunt Breast cancer Social History household members: spouse housing: house current occupational status: employed 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, Smoking Status: Never smoker alcohol intake: current alcohol intake frequency: holidays/special occasions only substance use type: does not use what type of physical activity do you participate in: none seatbelt use: always do you feel safe at home: Yes 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 history: 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) Female Reproductive History Menstrual Ab spontaneous: 3 HPI HPI Chief Complaint: est care Details: RYLEE ROPER, is a 59 F who presents to the office today for 1st cousin with colon CA at an early age (30's) - denies any change in bowel habits - denies any bleeding - h/o schatzki's ring - last dilated a few years ago - has trouble with swallowing liquids at times with cold liquids or drinking quickly - denies any trouble swallowing - she discontinued Omeprazole due to possibility of causing polyps - takes PRN - she reports HB is infrequent - she takes Meloxicam PRN - denies any heart or lung disease - non-smoker - rare EtOH use ROS Const Constitutional: No fatigue, feve (more content not included)... Normal [facility] Breast imaging reportOrdered By: Jalen Adrian on 07-04-2024 Study report [facility] Imaging Services [address] [place], [place] [id number] SCRN MAMM (CAD)W/CEASAR BILAT MR#: [id number] Acct: [id number] Name: RYLEE ROPER Rep #: [id number] : 1965 F 59 From: Crow Adrian MD PCP: Dr. Marcelina Anderson MD Status: [facility] Study:SCRN MAMM (CAD)W/CEASAR BILAT Date of Exa m: 07/03/24 Exam# [id number] Ordering Dr: Gladis Espinal PROCEDURE: SCRN MAMM (CAD)W/CEASAR BILAT REASON FOR EXAM: F, Age 59 y/o, mother with breast cancer. Grandmother with breast cancer. Aunts with breast cancer. TECHNIQUE: Bilateral screening digital breast tomosynthesis with 2D and 3D images. Computeraided detection. COMPARISON: No prior study available for comparison at this time. FINDINGS: There are scattered areas of fibroglandular density. Small bilateral benign-appearing axillary lymph nodes. No suspicious masses, areas of developing architectural distortion, or suspicious calcifications. BI/SCRN MAMM (CAD)W/CEASAR BILAT IMPRESSION: BI-RADS 2: BENIGN. RECOMMEND ANNUAL MAMMOGRAPHIC SCREENING. Follow-up code: Routine Follow-up The patient will be notified of the results by letter. Reading Location: [facility] CC: LOAN Espinal; Dr. Marcelina Anderson MD ~ Campus Administrative Assistant: Signed [facility] SCRN MAMM (CAD)W/CEASAR BILATo n 07-03-2024 SCRN MAMM (CAD)W/CEASAR BILAT [facility] Imaging Services [address] [place], [place] [id number] SCRN MAMM (CAD)W/CEASAR BILAT MR#: [id number] Acct: [id number] Name: RYLEE ROPER Rep #: [id number] : 1965 F 59 From: Jalen whitney MD PCP: Dr. Marcelina Anderson MD Status: REG CLI Study: SCRN MAMM (CAD)W/CEASAR BILAT Date of Exam: 06/10 09/30 Exam# [id number] Ordering Dr: Gladis Espinal PROCEDURE: SCRN MAMM (CAD)W/CEASAR BILAT REASON FOR EXAM: F, Age 59 y/o, mother with breast cancer. Grandmother with breast cancer. Aunts with breast cancer. TECHNIQUE: Bilateral screening digital breast tomosynthesis with 2D and 3D images. Computer aided detection. COMPARISON: No prior study available for comparison at this time. FINDINGS: There are scattered areas of fibroglandular density. Small bilateral benign-appearing axillary lymph nodes. No suspicious masses, areas of developing architectural distortion, or suspicious calcifications. BI/SCRN MAMM (CAD)W/CEASAR BILAT IMPRESSION: BI-RADS 2: BENIGN. RECOMMEND ANNUAL MAMMOGRAPHIC SCREENING. Follow-up code: Routine Follow-up The patient will be notified of the results by letter. Reading Location: [facility]AH CC: LOAN Esp[place]; Dr. Marcelina Anderson MD Campus Administrative Assistant: Signed [facility] Camera Engineer Office Visit Reporton 05-16-2024 Camera Engineer Office Visit Report [facility]'s [address], [address] [place] [address] OFFICE VISIT Date of Service: 05/16/24 MR#: [id number] Acct: [id number] Name: RYLEE ROPER Rep #: [id number] : 1965 Provider: LOAN Ross Age/Sex: 58/F [place] [facility] [place]: Signed Intake Vital Signs 04/19/24 13:35 05/16/24 13:41 Height 5 ft 4 in 5 ft 4 in Weight: 256 lb 260 lb BMI 43.9 44.6 BP 120/78 154/77 H Blood Pressure Location Lt brachial Position Sitting Respiration 16 Pulse 68 Pulse Source Monitor Temp 97.6 F L Pulse Oximetry (%) 97 Oxygen Delivery Method room air 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 Crew Required: No Is patient in pain?: No Allergies No Known Allergies Allergy (Verified 05/16/24 13:41) Medications ???Medication ???Instructions ???Recorded ???Confirmed ???Type calcium carbonate 600 mg PO QDAY 04/19/24 05/16/24 History fexofenadine 60 mg tablet (Jaz 60 mg PO BID 04/19/24 05/16/24 History Allergy) rcrthyhqlpd-azb-ueiidzluu -hrb tab PO 04/19/24 05/16/24 History 149-hyalur 500 mg-500 mg-66.7 mg tablet (Glucosamine-Chondroitin- MSM (with antiox)) levothyroxine 50 mcg tablet 50 mcg PO QDAY 04/19/24 05/16/24 History (Synthroid) lisinopril 10 mg tablet 10 mg PO QDAY 04/19/24 05/16/24 History magnesium 250 mg tablet 250 mg PO QDAY 04/19/24 05/16/24 History meloxicam 15 mg tablet 15 mg PO QDAY 04/19/24 05/16/24 History metoprolol succinate 50 mg 50 mg PO QDAY 04/19/24 05/16/24 History tablet,extended release 24 hr montelukast 10 mg tablet 10 mg PO QDAY 04/19/24 05/16/24 History omeprazole 40 mg capsule,delayed 40 mg PO QDAY 04/19/24 05/16/24 History release citalopram 20 mg tablet (Celexa) 40 mg PO QDAY 05/16/24 05/16/24 History Post menopausal: Yes Patient : No PFSH Medical History Monoallelic mutation of MUTYH gene Anxiety Vision problems Thyroid disease GERD (gastroesophageal reflux disease) High blood pressure Breast lump Back problem Arthritis Seasonal allergies Surgical History H/O lateral meniscus repair of left knee History of surgery Family History Father Heart disease Arthritis Cancer skin Diabetes type 2 Hypertension Dementia Urinary retention Kidney disease Mother Age related osteoporosis Hormone disorder related to breast cancer Cancer, Onset Age: 38 breast, hormone related age 38 then age 60 Thyroid disorder Aunt Breast cancer, Onset Age: 63 AAA negative Grandmother Breast cancer Hypertension CVA (cerebral vascular accident) Diabetes Glaucoma Brother Diabetes Hypertension Grandfather Myocardial infarction Aunt Breast cancer Social History household members: spouse housing: house current occupational status: employed 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, 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 She has a MUTYH mutation; She reports no issues or concerns today. She does have incontinence; has had this since 1997. Mixed. Not interested in treatment. Last PAP: 2022; normal hpv neg-Dr. Leanne Hassan ([facility])--will need records request. History of abnormal PAP: yes; 1995 HPV positive. Negative since then. Last mammogram: 06/2023; normal; obtain records. Has BMD testing in 2023 as well and this was normal. History of abnormal mammogram: no Colon cancer screenin; polyps removed; obtains yearly due to gene mutation. Other preventative health care screenings: Monica PCP Female Reproductive History Questions: metorrhagia: No, sexually active: No (not currently. ), dyspareunia: No and PCB: No Menopausal Symptoms: Yes hot flashes, Yes night sweats, Yes weight change, Yes mood changes, No difficulty concentrating, Yes sleep problems and Yes change in libido ROS Const Constitutional: Reports night sweats and weight gain; Denies body ache, chills, fatigue, fever(s) or headache(s) Eyes Eyes: Denies blurry vision or (more content not included)... Normal [facility] Internal Medicine Office Vis farooq 04-18-2024 Internal Medicine Office Visit [facility] [address] [place] [address] [place] [address] OFFICE VISIT Date of Service: 04/19/24 MR#: [id number] Acct: [id number] Name: RYLEE ROPER Rep #: [id number] : 1965 Provider: Dr. 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 EST CARE - PPW SENT Chief Complaint: est care Roustabout Crew Required: No Accompanied by: Self Is patient in pain?: No Allergies No Known Allergies Allergy (Unverified 04/19/24 13:17) Medications ???Medication ???Instructions ???Recorded ???Confirmed ???Type calcium carbonate 600 mg PO QDAY 04/19/24 04/19/24 History citalopram 20 mg tablet (Celexa) 20 mg PO QDAY 04/19/24 04/19/24 History fexofenadine 60 mg tablet (Jaz 60 mg PO BID 04/19/24 04/19/24 History Allergy) nunrxonefjk-brm-usloajgto -hrb tab PO 04/19/24 04/19/24 History 149-hyalur 500 mg-500 mg-66.7 mg tablet (Glucosamine-Chondroitin- MSM (with antiox)) levothyroxine 50 mcg tablet 50 mcg PO QDAY 04/19/24 04/19/24 History (Synthroid) lisinopril 10 mg tablet 10 mg PO QDAY 04/19/24 04/19/24 History magnesium 250 mg tablet 250 mg PO QDAY 04/19/24 04/19/24 History meloxicam 15 mg tablet 15 mg PO QDAY 04/19/24 04/19/24 History metoprolol succinate 50 mg 50 mg PO QDAY 04/19/24 04/19/24 History tablet,extended release 24 hr montelukast 10 mg tablet 10 mg PO QDAY 04/19/24 04/19/24 History omeprazole 40 mg capsule,delayed 40 mg PO QDAY 04/19/24 04/19/24 History release PFSH Medical History (Updated 04/19/24 @ 14:[address] Marcelina Anderson MD) Monoallelic mutation of MUTYH gene Anxiety Vision problems Thyroid disease GERD (gastroesophageal reflux disease) High blood pressure Breast lump Back problem Arthritis Seasonal allergies Surgical History (Updated 04/19/24 @ 13:[address] Marcelina Anderson MD) H/O lateral meniscus repair of left knee History of surgery Family History (Updated 04/19/24 @ 13:[address] Marcelina Anderson MD) Father Heart disease Arthritis Cancer skin Diabetes type 2 Hypertension Dementia Urinary retention Kidney disease Mother Age related osteoporosis Hormone disorder related to breast cancer Cancer, Onset Age: 38 breast, hormone related age 38 then age 60 Thyroid disorder Aunt Breast cancer, Onset Age: 63 AAA negative Grandmother Breast cancer Hypertension CVA (cerebral vascular accident) Diabetes Glaucoma Brother Diabetes Hypertension Grandfather Myocardial infarction Aunt Breast cancer Social History (Updated 04/19/24 @ 14:[address] 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 She was seeing Dr. Hassan and last saw them recently. She is up to date on her routine blood work and screening. She doesn't want any immunizations. She doesn't smoke and doesn't need any refills. She reports she is eating healthy and staying active. The patient has been on blood pressure medications for about 30 years. She doesn't often check her blood pressure at home. She states it has been pretty well controlled and can tell when it is going higher due to headaches. She states that happens once every 4 months on average. She is taking her medication as prescribed without problems. She doesn't add salt to her food. The patient reports her allergies are pretty well controlled. She takes jaz and singulair daily. The patient takes omeprazole for her GERD. She reports her symptoms are fairly well controlled. She doesn't take the omeprazole daily. She takes meloxicam for bilateral knee pain. She reports it does seem to help. She does hope to wean the medication once she is retired. She sees orthopedics as needed. The patient has been on celexa for about 20 years. She takes it for anxiety. She finds it helpful. She states she will notice when she misses it. She was previously on paxil, but didn't tolerate that. She denies any current concerns (more content not included)... Normal [facility] Thyroidon 04-02-2024 Thyroid [facility] Imaging Services [address] [place], [place] [address] Thyroid MR#: [id number] Acct: [id number] Name: RYLEE ROPER Rep #: [id number] : 1965 F 58 From: Roque Liu PCP: Dr. Marcelina Anderson MD Status: REG CLI Study: Thyroid Date of Exam: 04/02/24 Exam# [id number] Ordering Dr: LOUISE WHIPPLE MD [id number] STUDY: THYROID ULTRASOUND REASON FOR EXAM: Female, 58 years old. MUTATION OF MUTYH GENE TECHNIQUE: Ultrasound evaluation of the thyroid was performed with real-time and static bear-scale imaging. COMPARISON: None. FINDINGS: RIGHT LOBE: The right lobe of the thyroid gland measures 4.9 x 2.1 x 1.9 cm. There is a heterogeneous echotexture. There are no demonstrated solid, cystic or complex lesions. LEFT LOBE: The left lobe of the thyroid gland measures 4.4 x 2 x 1.4 cm. There is a heterogeneous echotexture. Hypoechoic nodule measures 8 x 7 x 5 mm. It appears wider than tall does not have internal color blood flow or echogenic calcifications. It is gently lobulated and relatively well circumscribed. ISTHMUS: The isthmus measures 4 mm . The regional lymph nodes are normal. US/Thyroid IMPRESSION: Left thyroid nodule. This nodule is solid or almost completely solid, hypoechoic, lxdyf-jdtw-xlvy, margins cannot be determined and contains no echogenic foci. TI-RADS points: 4. TI-RADS category: TR4. This nodule is moderately suspicious but no FNA or follow-up is necessary given the small size of this nodule. Electronically Signed: Roque Hitchcock MD at 14:47 EST Reading Location ID and State: [address] [place] [address] Tel , Service support , CC: Dr. Marcelina Anderson MD; LOUISE WHIPPLE MD Campus Administrative Assistant: Signed [facility] Ambulatory Visit Summaryon 0 12-23-2023 Ambulatory Visit Summary Ambulatory Visi t Summary RYLEE ROPER :1965 Visit Date:12/23/2023 Ambulatory Visit Instructions Your Diagnosis MYH-associated polyposis (MAP) Chronic GERD Family history of colon cancer History of colon polyps Benign fundic gland polyps of stomach GERD with esophagitis Your Care Team Attending Physician - Sole WATKINS, Louise Pablo Primary Care Physician - Leidy Hassan CNP This Is Your Medications List Contact prescribing physician if questions or concerns Misc Prescription (Walker) ascorbic acid/chondroitin/glucosa/ elvin (Glucosamine Chondroitin) calcium citrate (calcium (as calcium citrate) 200 mg oral tablet) citalopram (Celexa) ergocalciferol (Vitamin D) fexofenadine (Jaz) lactobacillus acidophilus (Acidophilus Probiotic Blend) levothyroxine (Synthroid) lisinopril magnesium oxide (magnesium oxide 250 mg oral tablet) meloxicam (meloxicam 15 mg Tab) metoprolol (Metoprolol succinate 25 mg ER Tablet) montelukast polycarbophil (Fiber Tabs) Procedures Performed Colonoscopy (11/16/2023), Esophagogastroduodenoscop y (11/16/2023), Colonoscopy (09/15/2022), Esophagogastroduodenoscop y (09/15/2022), hysteroscopy, dilation and curettage ablation (05/01/2013), d&c. Discharge Vitals Heart Rate (Peripheral) 57 Blood Pressure 152/83 Height 170 cm Height 67 in Weight 115.7 kg Weight 254.54 lb BMI 40.03 Medications What How Much When Why Instructions Unchanged ascorbic acid/ chondroitin/ glucosa/ elvin (Glucosamine Chondroitin) 1 tab By Mouth Every day Contact prescribing physician if questions or concerns Unchanged calcium citrate (calcium (as calcium citrate) 200 mg oral tablet) 1 Tablets By Mouth Every day Contact prescribing physician if questions or concerns Unchanged citalopram (Celexa) 40 Milligram By Mouth Every day Contact prescribing physician if questions or concerns Unchanged ergocalciferol (Vitamin D) 50,000 International unit By Mouth Every week Contact prescribing physician if questions or concerns Unchanged fexofenadine (Jaz) 180 Milligram By Mouth Every day Contact prescribing physician if questions or concerns Unchanged lactobacillus acidophilus (Acidophilus Probiotic Blend) 1 Capsules By Mouth Every day Contact prescribing physician if questions or concerns Unchanged levothyroxine (Synthroid) 25 Microgram By Mouth Every day Contact prescribing physician if questions or concerns Unchanged lisinopril 10 Milligram By Mouth Every day Contact prescribing physician if questions or concerns Unchanged magnesium oxide (magnesium oxide 250 mg oral tablet) 2 Tablets By Mouth Every day Contact prescribing physician if questions or concerns Unchanged meloxicam (meloxicam 15 mg Tab) 1 Tablets By Mouth Every day Contact prescribing physician if questions or concerns Unchanged metoprolol (Metoprolol succinate 25 mg ER Tablet) 25 Milligram By Mouth Every day Contact prescribing physician if questions or concerns Unchanged Misc Prescription (Walker) 0 Left knee sprain Instructions on use, dispense one unit Contact prescribing physician if questions or concerns Unchanged montelukast 10 Milligram By Mouth Every day Contact prescribing physician if questions or concerns Unchanged polycarbophil (Fiber Tabs) By Mouth 4 times a day Contact prescribing physician if questions or concerns Medications and Immunizations Administered Not Given influenza virus vaccine, inactivated, Patient Refuses Allergies Omnicef (Nausea and Vomiting) cefdinir (Unknown, Nausea and Vomiting) Problems Ongoing - Any problem that you are currently receiving treatment for. Antral ulcer Anxiety Arthritis Benign fundic gland polyps of stomach Omaira's gland hyperplasia of duodenum Chronic GERD Colon polyp Family history of breast cancer in mother Family history of colon cancer Fundic gland polyps of stomach, benign Gas pain GERD with esophagitis Hemorrhoids History of colon polyps HTN (hypertension) Menorrhagia MRSA (methicillin resistant staph aureus) culture positive MYH-associated polyposis (MAP) Seasonal allergies Historical - Any problem that you are no longer receiving treatment for. Dysphagia Patient Survey You may receive a survey via text or e-mail asking about your office visit. Please share your experience with us by completing your survey. We appreciate your feedback and thank you for choosing us for your care. Normal [facility] Gastroenterology Office/Clin ic Noteon 12-23-2023 Gastroenterology Office/Clinic Note Gastroenterology Office/Clinic Note Chief Complaint EGD and colonoscopy results. HPI Staff This is a 58 year old female who presents today for a follow-up to EGD and Colonoscopy. 1 year EGD/Colon recall placed in chart Last office visit w/ Dr Whipple Assessment/Plan 1. MYH-associated polyposis (MAP) (D12.6: Benign neoplasm of colon, unspecified) Was previously evaluated by Dr. Mendieta 02/2022 and note indicated patient with history of MYH associated polyposis with MUTYH gene mutation. Dr. Mendieta recommended regular surveillance EGD- 2023. 2. Chronic GERD (K21.9: Gastro-esophageal reflux disease without esophagitis) Controlled with as needed use of omeprazole 40mg. Dr. Mendieta recommended regular surveillance EGD- 2023-ordered EGD. Continue omeprazole 40mg daily as needed for acid reflux. 3. History of colon polyps (Z86.010: Personal history of colonic polyps) Patient to have repeat EGD/colonoscopy 09/2023. 4. Family history of colon cancer (Z80.0: Family history of malignant neoplasm of digestive organs) FH colon cancer- patient's cousin on her mom's side. FH colon polyps- patient's maternal grandmother. Educated regarding miralax colon prep. EGD w/ Dr Whipple 11/16/23 Impression and Plan esophagitis Schatzki's ring Hiatal hernia Gastropathy Fundic gland polyps Omaira's gland hyperplasia Recommendations: Increase omeprazole to twice a day for 1 month-then reduce to once daily -Repeat EGD next year Colonoscopy w/ Dr Whipple 11/16/23 Impression and Plan 3 colon polyps?removed as above Extremely redundant colon With excessive loop formation Internal hemorrhoids Recommendations: Repeat colonoscopy:: In 1 year. Final Diagnosis (Verified) A: COLON, ASCENDING, POLYPECTOMY: - Fragments of benign colonic mucosa with lymphoid aggregates and focal hyperplastic change. - No evidence of hyperplastic and adenomatous polyp identified. B: GASTRIC POLYPS, POLYPECTOMY: - Fundic gland polyp with focal chronic inactive gastritis. History of Present Illness I have reviewed HPI staff note, most recent labs and imaging, more than 30 minutes spent reviewing the chart, during encounter, placing orders and counseling the patient. pt is doing well No symptoms Using PPI once every day as needed Review of Systems PHQ Score Initial Depression Screen Score: 0 SCORE All systems reviewed, negative except as mentioned above Physical Exam Vitals & Measurements HR: 57(Peripheral) BP: 152/83 HT: 67 in HT: 170 cm WT: 115.7 kg WT: 254.54 lb BMI: 40.03 General: alert, no acute distress HEENT: atraumatic normocephalic Extremities: No edema Assessment/Plan 1. MYH-associated polyposis (MAP) (D12.6: Benign neoplasm of colon, unspecified) 2. Chronic GERD (K21.9: Gastro-esophageal reflux disease without esophagitis) 3. Family history of colon cancer (Z80.0: Family history of malignant neoplasm of digestive organs) 4. History of colon polyps (Z86.010: Personal history of colonic polyps) 5. Benign fundic gland polyps of stomach (D13.1: Benign neoplasm of stomach) 6. GERD with esophagitis (K21.0: Gastro-esophageal reflux disease with esophagitis) Continue PPI as needed Repeat EGD next for year Repeat colonoscopy every 2 years Refer for neck ultrasound Refer for skin exam by dermatology Follow-up No qualifying data available Problem List/Past Medical History Ongoing Antral ulcer Anxiety Arthritis Benign fundic gland polyps of stomach Omaira's gland hyperplasia of duodenum Chronic GERD Colon polyp Family history of breast cancer in mother Family history of colon cancer Fundic gland polyps of stomach, benign Gas pain GERD with esophagitis Hemorrhoids History of colon polyps HTN (hypertension) Menorrhagia MRSA (methicillin resistant staph aureus) culture positive MYH-associated polyposis (MAP) Seasonal allergies Historical Dysphagia Procedure/Surgical History Colonoscopy (11/16/2023), Esophagogastroduodenoscop y (11/16/2023), Colonoscopy (09/15/2022), Esophagogastroduodenoscop y (09/15/2022), hysteroscopy, dilation and curettage ablation (05/01/2013), d&c. Medications Acidophilus Probiotic Blend, 1 cap(s), Oral, Daily Jaz, 180 mg, Oral, Daily calcium (as calcium citrate) 200 mg oral tablet, 950 mg= 1 tab(s), Oral, Daily Celexa, 40 mg, Oral, Daily Fiber Tabs, Oral, QID Glucosamine Chondroitin, 1 tab, Oral, Daily lisinopril, 10 mg, Oral, Daily magnesium oxide 250 mg oral tablet, 500 mg= 2 tab(s), Oral, Daily meloxicam 15 mg Tab, 15 mg= 1 tab(s), Oral, Daily Metoprolol succinate 25 mg ER Tablet, 25 mg, Oral, Daily montelukast, 10 mg, Oral, Daily Synthroid, 25 mcg, Oral, Daily Vitamin D, 33632 International_Unit, Oral, qWeek Walker, 0 Allergies Omnicef (Nausea and Vomiting) cefdinir (Unknown, Nausea and Vomiting) Social History Alcohol - Denies Alcohol Use, 04/18/2013 Current, 12/12/2019 Exercise Other Caffeine- 2-3 cups da (more content not included)... Normal [facility] Comment on above: Result Comment: Elec tronically Signed By: Sole WATKINS, Louise Pablo\.br\Date and Time Signed: 12/23/23 10:44 EDT Reminderson 12-23-2023 Reminders Reminders From: Darleen Lopez MA S To: [facility] - Reminders/Recalls; Sent: 12/23/2023 11:04:51 EDT Show up: 10/07/2025 11:03:00 EDT Subject: colon recall Due Date/Time: 11/15/2025 11:04:00 EDT Reminder/Recall [address] Whipple 11/16/23 Normal [facility] Surgical Pathology Reporton 11-24-2023 Surgical Pathology Report [facility] [address] [place] [address]- Surgical Pathology Report Collected Date/Time: 11/16/2023 13:04 EDT Pathologist: Eric Fuentes MD Received Date/Time: 11/16/2023 14:45 EDT Sole WATKINS, Louise Whipple MD, Louise Johnson Surgical Pathology Report - 11/24/2023 16:01 EDT - Auth (Verified) Final Diagnosis A: COLON, ASCENDING, POLYPECTOMY: - Fragments of benign colonic mucosa with lymphoid aggregates and focal hyperplastic change. - No evidence of hyperplastic and adenomatous polyp identified. B: GASTRIC POLYPS, POLYPECTOMY: - Fundic gland polyp with focal chronic inactive gastritis. (Electronic Signature) Yan. Gina MD 11/24/2023 16:01 Clinical Information MYH associated polyposis, history of colon polyps, family history of colon cancer Pre-Op Diagnosis: MYH associated polyposis, history of colon polyps, family history of colon cancer Procedure: Colonoscopy Post-Op Diagnosis: 1.3 colon polyps -removed 2.Extremely redundant colon 3.With excessive loop formation 4.Internal hemorrhoids 5.Esophagitis 6.Schatzki's ring 7.Hiatal hernia 8.Gastropathy 9.Fundic gland polyps 10.Omaira's gland hyperplasia Specimen(s) Received A: Ascending colon polyps B: Biopsy of gastric polyps Gross Description A: Received in formalin labeled with patient name, number, and ascending colon polyps are multiple fragments of bermudez/pink/light yellow tissue and/or material ranging from less than 0.1 cm up to 0.5 cm in greatest dimension. Specimen measures in aggregate 1 x 0.5 x 0.1 cm. It is entirely submitted in one cassette. B: Received in formalin labeled with patient name, number, and biopsy of gastric polyps are three fragments of bermudez/pink tissue ranging from 0.1 cm up to 0.5 cm in greatest dimension measuring in aggregate 0.6 x 0.5 x 0.1 cm. Specimen is entirely submitted in one cassette. (DC) DC:[facility] Microscopic Description A&B: Microscopic examination performed unless gross only specified. Normal [facility] Comment on above: Performed By: #### [id number] #### [facility] Laboratory [address] [place] [address] Main OR Intraoperative Recor don 11-17-2023 Main OR Intraoperative Record Main OR Intraoperative Record IntraOp Document Type FT Summary Primary Physician: Louise Whipple MD Finalized Date/Time: 11/17/23 08:49:04 Pt. Name: RYLEE ROPER/Sex: 1965 Female Med Rec #: [id number] Physician: Paul Landaverde MD Financial #: [id number] Pt. Type: O Room/Bed: / Admit/Disch: 11/16/23 10:50:09 - 11/16/23 23:59:59 Institution: Case Times FT Entry 1 Patient Times In Room 11/16/23 12:19:00 Out Room 11/16/23 13:05:00 Procedure Times Start 11/16/23 12:24:00 Stop 11/16/23 13:00:00 Anesthesia Times Start 11/16/23 12:19:00 Stop 11/16/23 13:05:00 Time at [facility] 11/16/23 12:55:00 Last Modified By: Bhavani Antony RN 11/16/23 13:06:21 General Comments: 1230-EGD completed/AW RN 1231-Colonoscopy started/AW RN 11/17/23 Chart opened to review and send charges [facility]FA Case Attendance FT Entry 1 Entry 2 Entry 3 Case Attendee Mihir RIVERA, Earlene Whipple MD, Bhavani Delvalle RN Role Performed 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 Arellano supervising Last Modified By: Arpan DÍAZ, Bhavani Antony RN, Bhvaani Antony RN, Bhavani 11/16/23 13:06:22 11/16/23 13:06:22 11/16/23 13:06:22 Entry 4 Entry 5 Case Attendee Estefanía Vasquez Micala E Role Performed Scrub - Primary Staff - Other Time In 11/16/23 12:19:00 11/16/23 12:19:00 Time Out 11/16/23 13:05:00 11/16/23 13:05:00 Procedure EGD AND COLONOSCOPY(.) EGD AND COLONOSCOPY(.) Comments help in room Last Modified By: Arpan DÍAZ, Bhavani Antony RN, Bhavani 11/16/23 13:06:22 11/16/23 13:06:22 Perioperative Protocols FT Pre-Care Text: Implements protective measures prior to operative or invasive procedure, confirms identity before the operative or invasive procedure, verifies operative procedure, surgical site, and laterality Entry 1 Procedure(s) EGD AND COLONOSCOPY(.) Patient Identity Birthday, ID Band Verified (select at Check, Patient least 2): Participation Consents / H and P Anesthesia Consent, Operative Site N/A Verified HandP, Surgery/Procedure Marking Verified Consent Surgical Site No Laterality Verified n/a Verified Procedure Verified Yes Correct Patient Yes Position Verified Availability Equipment, Medication Prep Dry n/a Verified (If Applicable) PreOp Antibiotic No Time Out Earlene Ash CRNA, Given Participants Sole WATKINS, Arpan [place] RN, Pedro Beckham Kirstyn K, Sparks, Micala E Time Out Complete 11/16/23 12:22:00 Outcomes Met? Yes Last Modified By: Bhavani Antony RN 11/16/23 12:28:02 Post-Care Text: The patient is free from signs and symptoms of injury caused by extraneous objects Allergy Information FT Pre-Care Text: Verifies allergies Entry 1 Allergies Reviewed? Yes Allergies Reviewed Self/Patient With Outcomes Met? Yes Last Modified By: Bhavani Antony RN 11/16/23 12:28:09 Post-Care Text: The patient received appropriate medication(s) safely administered during the perioperative period Surgical Procedures FT Entry 1 Procedure Description Procedure EGD AND COLONOSCOPY Modifiers . Surgeon Description EGD with biopsy of gastric polyps. COLONOSCOPY with ascending colon polypectomy x3 Primary Procedure Yes Primary Surgeon Sole WATKINS, Louise Pablo Start 11/16/23 12:24:00 Stop 11/16/23 13:00:00 Anesthesia Type General Surgical Service Gastroenterology Wound Class 2 - Clean-Contaminated Last Modified By: Bhavani Antony RN 11/16/23 13:03:18 General Case Data FT Pre-Care Text: Classifies surgical wound, implements aseptic technique, initiates traffic control Entry 1 Case Information OR ENDO 1 FT Case Level Level 2 Wound Class 2 - Clean-Contaminated Specialty Gastroenterology ASA Class 3 Preop Diagnosis MYH ASSOCIATED Postop Same As Preop No POLYPOSIS, HX OF COLON POLYPS, FAMILY HX OF COLON CANCER Postop Diagnosis EGD- hiatal hernia, Outcomes Met? Yes Omaira's gland hyperplasia, schatzki ring, Grad B esophagitis, fundic gland polyps, gastropathy. Colonoscopy- ascending colon polyps x3, redundant colon, internal hemorrhoids Last Modified By: Bhavani Antony RN 11/16/23 13:21:55 Post-Care Text: The patient is free from signs and symptoms of infection Skin Assessment (Pre Procedure) FT Pre-Care Text: Implements protective measures to prevent skin/ tissue injury due to thermal or mechanical sources Evaluates for signs and symptoms of physical injury to skin and tissue Entry 1 Skin Integrity Intact, Monarch, Warm, and Skin Abnormality No Dry Outcomes Met? Yes Last Modified By: Bhavani Antony RN 11/16/23 12:29:48 Post-Care Text: The patient is free from signs and symptoms of injury caused by ext (more content not included)... Normal [facility] Discharge Instructionson Discharge Instructions Discharge Instruc tions KEMALJAYY CRESPOBushra Telles :1965 Visit Date:11/16/2023 Inpatient Discharge Instructions Your Care Team Admitting Physician - Paul Landaverde MD Referring Physician - Saima WATKINS, Paul Berrios Reason for Your Visit MYH ASSOCIATED POLYPOSIS, HX OF COLON POLYPS, FAMILY HX OF COLON CANCER Your Diagnosis Benign fundic gland polyps of stomach Polyp of ascending colon Tests Performed Pathology Tissue Exam -- Results Pending -- Please visit your patient portal for your results or contact your primary care physician. This Is Your Medications List [facility] Prescription (Walker) ascorbic acid/chondroitin/glucosa/ elvin (Glucosamine Chondroitin) calcium citrate (calcium (as calcium citrate) 200 mg oral tablet) citalopram (Celexa) ergocalciferol (Vitamin D) fexofenadine (Jaz) lactobacillus acidophilus (Acidophilus Probiotic Blend) levothyroxine (Synthroid) lisinopril magnesium oxide (magnesium oxide 250 mg oral tablet) meloxicam (meloxicam 15 mg Tab) metoprolol (Metoprolol succinate 25 mg ER Tablet) montelukast polycarbophil (Fiber Tabs) [Image Removed: STOP]Stop taking these medications cyanocobalamin (Vitamin B12) omeprazole (omeprazole 40 mg Cap-DR) Procedure History Colonoscopy (09/15/2022), Esophagogastroduodenoscop y (09/15/2022), hysteroscopy, dilation and curettage ablation (05/01/2013), d&c. Discharge Vitals Temperature (Temporal Artery) 36.8 ?C Heart Rate (Monitored) 65 Respiratory Rate 16 Blood Pressure 124/70 Height 170 cm Weight 120.3 kg BMI 41.63 What to do next Instructions From Your Doctor Event Name Event Result Discharge Instructions Discharge Instructions New Follow Up Appointments after Discharge Follow Up with Sole WATKINS, YESENIA [place], MED When: Comments: will call for follow up Where: [address] [place] [address], [address] [place] [address] [phone] Medications What How Much When Why Instructions Next Dose Unchanged ascorbic acid/ chondroitin/ glucosa/ elvin (Glucosamine Chondroitin) 1 tab By Mouth Every day Unchanged calcium citrate (calcium (as calcium citrate) 200 mg oral tablet) 1 Tablets By Mouth Every day Unchanged citalopram (Celexa) 40 Milligram By Mouth Every day Unchanged ergocalciferol (Vitamin D) 50,000 International unit By Mouth Every week Unchanged fexofenadine (Jaz) 180 Milligram By Mouth Every day Unchanged lactobacillus acidophilus (Acidophilus Probiotic Blend) 1 Capsules By Mouth Every day Unchanged levothyroxine (Synthroid) 25 Microgram By Mouth Every day Unchanged lisinopril 10 Milligram By Mouth Every day Unchanged magnesium oxide (magnesium oxide 250 mg oral tablet) 2 Tablets By Mouth Every day Unchanged meloxicam (meloxicam 15 mg Tab) 1 Tablets By Mouth Every day Unchanged metoprolol (Metoprolol succinate 25 mg ER Tablet) 25 Milligram By Mouth Every day Unchanged Misc Prescription (Walker) 0 Left knee sprain Instructions on use, dispense one unit Unchanged montelukast 10 Milligram By Mouth Every day Unchanged polycarbophil (Fiber Tabs) By Mouth 4 times a day What How Much When Comments Stop Taking cyanocobalamin (Vitamin B12) 1,000 Microgram By Mouth Every day Stop Taking omeprazole (omeprazole 40 mg Cap-DR) 1 Capsules By Mouth Every day Test Results No qualifying data available. Allergies Omnicef (Nausea and Vomiting) cefdinir (Unknown, Nausea and Vomiting) Problems Ongoing - Any problem that you are currently receiving treatment for. Antral ulcer Anxiety Arthritis Omaira's gland hyperplasia of duodenum Chronic GERD Colon polyp Family history of breast cancer in mother Family history of colon cancer Fundic gland polyps of stomach, benign Gas pain GERD with esophagitis Hemorrhoids History of colon polyps HTN (hypertension) Menorrhagia MRSA (methicillin resistant staph aureus) culture positive MYH-associated polyposis (MAP) Seasonal allergies Historical - Any problem that you are no longer receiving treatment for. Dysphagia Education Materials Stomach Polyps A stomach polyp, also called a gastric polyp, is a growth on the lining of the stomach. A stomach polyp may be found by chance when you are being examined for another reason. Most polyps are not dangerous, but some can be harmful because of their size, location, or type. Polyps that can become harmful include: ? Large polyps. These can turn into open sores called ulcers. Ulcers can lead to stomach bleeding. ? Gastric outlet obstructions. These polyps block food from moving from the stomach to the small intestine. ? Adenomas. These polyps can become cancerous. What are the causes? Stomach polyps form when the lining of the stomach gets inflamed or damaged. Stomach inflammation and damage may be caused by: ? A long-lasting stomach condition, such as gastritis. ? Taking certain medici (more content not included)... Normal [facility] Comment on above: Result Comment: Elec tronically Signed By: Sergio DÍAZ, Colleen\.timbo\Date and Time Signed: 11/16/23 13:22 EDT Discharge Instructions Discharge Instruc tions RYLEE ROPER :1965 Visit Date:11/16/2023 Inpatient Discharge Instructions Your Care Team Admitting Physician - Paul Landaverde MD Referring Physician - Paul Landaverde MD Reason for Your Visit MYH ASSOCIATED POLYPOSIS, HX OF COLON POLYPS, FAMILY HX OF COLON CANCER Your Diagnosis Benign fundic gland polyps of stomach Polyp of ascending colon Tests Performed Pathology Tissue Exam -- Results Pending -- Please visit your patient portal for your results or contact your primary care physician. This Is Your Medications List [facility] Prescription (Walker) ascorbic acid/chondroitin/glucosa/ elvin (Glucosamine Chondroitin) calcium citrate (calcium (as calcium citrate) 200 mg oral tablet) citalopram (Celexa) ergocalciferol (Vitamin D) fexofenadine (Jaz) lactobacillus acidophilus (Acidophilus Probiotic Blend) levothyroxine (Synthroid) lisinopril magnesium oxide (magnesium oxide 250 mg oral tablet) meloxicam (meloxicam 15 mg Tab) metoprolol (Metoprolol succinate 25 mg ER Tablet) montelukast polycarbophil (Fiber Tabs) [Image Removed: STOP]Stop taking these medications cyanocobalamin (Vitamin B12) omeprazole (omeprazole 40 mg Cap-DR) Procedure History Colonoscopy (09/15/2022), Esophagogastroduodenoscop y (09/15/2022), hysteroscopy, dilation and curettage ablation (05/01/2013), d&c. Discharge Vitals Temperature (Temporal Artery) 36.8 ?C Heart Rate (Monitored) 66 Respiratory Rate 19 Blood Pressure 130/63 Height 170 cm Weight 120.3 kg BMI 41.63 What to do next Instructions From Your Doctor No qualifying data available. New Follow Up Appointments after Discharge Follow Up with Sole WATKINS, YESENIA [place], [facility] When: Comments: will call for follow up Where: [facility] [address], [address] [place] [phone] Medications What How Much When Why Instructions Next Dose Unchanged ascorbic acid/ chondroitin/ glucosa/ elvin (Glucosamine Chondroitin) 1 tab By Mouth Every day Unchanged calcium citrate (calcium (as calcium citrate) 200 mg oral tablet) 1 Tablets By Mouth Every day Unchanged citalopram (Celexa) 40 Milligram By Mouth Every day Unchanged ergocalciferol (Vitamin D) 50,000 International unit By Mouth Every week Unchanged fexofenadine (Jaz) 180 Milligram By Mouth Every day Unchanged lactobacillus acidophilus (Acidophilus Probiotic Blend) 1 Capsules By Mouth Every day Unchanged levothyroxine (Synthroid) 25 Microgram By Mouth Every day Unchanged lisinopril 10 Milligram By Mouth Every day Unchanged magnesium oxide (magnesium oxide 250 mg oral tablet) 2 Tablets By Mouth Every day Unchanged meloxicam (meloxicam 15 mg Tab) 1 Tablets By Mouth Every day Unchanged metoprolol (Metoprolol succinate 25 mg ER Tablet) 25 Milligram By Mouth Every day Unchanged Misc Prescription (Walker) 0 Left knee sprain Instructions on use, dispense one unit Unchanged montelukast 10 Milligram By Mouth Every day Unchanged polycarbophil (Fiber Tabs) By Mouth 4 times a day What How Much When Comments Stop Taking cyanocobalamin (Vitamin B12) 1,000 Microgram By Mouth Every day Stop Taking omeprazole (omeprazole 40 mg Cap-DR) 1 Capsules By Mouth Every day Test Results No qualifying data available. Allergies Omnicef (Nausea and Vomiting) cefdinir (Unknown, Nausea and Vomiting) Problems Ongoing - Any problem that you are currently receiving treatment for. Antral ulcer Anxiety Arthritis Omaira's gland hyperplasia of duodenum Chronic GERD Colon polyp Family history of breast cancer in mother Family history of colon cancer Fundic gland polyps of stomach, benign Gas pain GERD with esophagitis Hemorrhoids History of colon polyps HTN (hypertension) Menorrhagia MRSA (methicillin resistant staph aureus) culture positive MYH-associated polyposis (MAP) Seasonal allergies Historical - Any problem that you are no longer receiving treatment for. Dysphagia Education Materials Upper Endoscopy, Adult, Care After After the procedure, it is common to have a sore throat. It is also common to have: ? Mild stomach pain or discomfort. ? Bloating. ? Nausea. Follow these instructions at home: The instructions below may help you care for yourself at home. Your health care provider may give you more instructions. If you have questions, ask your health care provider. ? If you were given a sedative during the procedure, it can affect you for several hours. Do not drive or operate machinery until your health care provider says that it is safe. ? If you will be going home right after the procedure, plan to have a responsible adult: ? Take you home from the hospital or clinic. You will not be allowed to drive. ? Care for you for the time you are told. ? Follow instructions from your health care provider about what you m (more content not included)... Normal [facility] Comment on above: Result Comment: Elec tronically Signed By: Sergio DÍAZ, Colleen\.timbo\Date and Time Signed: 11/16/23 13:17 EDT KESHAWNDon 11-16-2023 Esophagogastroduodenosco py EGD Patient: RYLEE ROPER Age: 58 years Sex: Female : 1965 Associated Diagnoses: None Author: Louise Whipple MD Pre-Procedure Procedure Date 11/16/2023 13:03:00 . Procedure Type: Esophagogastroduodenoscop y with biopsy. Procedure provider Performed by Louise Whipple MD. Current history and physical Documented on chart. Informed Consent After discussing the rationale, risks and benefits, and alternatives to this procedure, the patient provided signed consent for the procedure. Pre-procedure diagnosis: Chronic GERD, polyposis syndrome. Medications (Selected) Inpatient Medications Ordered Lactated Ringers IV Breann 1000 mL 1,000 mL: 1,000 mL, IV, 100 mL/hr, Routine, Start date 11/16/23 12:04:00 EDT, 10 hour(s), Total volume (mL): 1,000, 120.3 kg, 2.38, m2 Sodium Chloride 0.9% IV Breann 1000 mL 1,000 mL: 1,000 mL, IV, 20 mL/hr, Routine, Start date 11/16/23 6:46:00 EDT, 50 hour(s), Total volume (mL): 1,000 Prescriptions Prescribed Walker: Kuldeep, Instructions on use, dispense one unit, Print Requisition, Supply Documented Medications Documented Acidophilus Probiotic Blend: 1 cap(s), Oral, Daily, Refill(s) 0, Prophylaxis Jaz: 180 mg, Oral, Daily, Refills(s) 0, Allergy symptoms Celexa: 40 mg, Oral, Daily, Refills(s) 0, Anxiety Fiber Tabs: mg, Oral, QID, Refills(s) 0, Constipation Glucosamine Chondroitin: 1 tab, Oral, Daily, Refill(s) 0, Prophylaxis Metoprolol succinate 25 mg ER Tablet: 25 mg, Oral, Daily, Refills(s) 0, High blood pressure Synthroid: 25 microgram, Oral, Daily, Refills(s) 0, Thyroid Vitamin D: 50,000 International_Unit, Oral, qWeek, Refills(s) 0, Prophylaxis calcium (as calcium citrate) 200 mg oral tablet: 950 mg = 1 tab(s), Oral, Daily, Refills(s) 0, Prophylaxis lisinopril: 10 mg, Oral, Daily, Refills(s) 0, High blood pressure magnesium oxide 250 mg oral tablet: 500 mg = 2 tab(s), Oral, Daily, Refills(s) 0, Prophylaxis meloxicam 15 mg Tab: 15 mg = 1 tab(s), Oral, Daily, Refills(s) 0 montelukast: 10 mg, Oral, Daily, Refills(s) 0, Allergy symptoms Anticoagulant/antiplatele t None. ASA Classification: Class II. . Monitoring: See anesthesia record. . Procedure The procedure was performed in the hospital. See anesthesia record for sedation given during procedure. The patient was positioned starting in the left lateral decubitus position and with safety measures. Endoscope type used was an adult-size, introduced orally, advanced to the 2nd portion of the duodenum. No difficulty was encountered during the procedure. Views were excellent. The patient tolerated the procedure well. Findings 1. Nonobstructive Schatzki's ring, hiatal hernia, LA grade B esophagitis 2. Erythema in the antrum, mild patchy. Otherwise normal stomach. Several fundic gland polyps in the body and fundus. Biopsies of the large polyps were taken to rule out H. pylori. 3. Omaira's gland hyperplasia in the duodenal bulb. Otherwise, normal duodenum. Images Procedure images: [id number]_hd_[id number]_hd_video_ [id number].jpg [id number]_hd_video_ [id number].jpg [id number]_hd_video_ [id number].jpg [id number]_hd_video_ [id number].jpg [id number]_hd_video_ [id number].jpg . Post-Procedure Complications: none. Estimated blood loss: minimal. Specimens: sent to pathology. Devices/ implants: none left in place. Impression and Plan esophagitis Schatzki's ring Hiatal hernia Gastropathy Fundic gland polyps Omaira's gland hyperplasia Recommendations: -Resume previous diet -Resume home medications Increase omeprazole to twice a day for 1 month-then reduce to once daily -Repeat EGD next year -Await pathology results, follow in GI clinic in 1-2 after discharge [facility] Comment on above: Other Comment: Danika zamora Attachment - attachment storage system not supported [id number] Can be viewed in source system Missing Attachment - attachment storage system not supported [id number] Can be viewed in source system Missing Attachment - attachment storage system not supported [id number] Can be viewed in source system Missing Attachment - attachment storage system not supported [id number] Can be viewed in source system Missing Attachment - attachment storage system not supported [id number] Can be viewed in source system Missing Attachment - attachment storage system not supported [id number] Can be viewed in source system Missing Attachment - attachment storage system not supported [id number] Can be viewed in source system Missing Attachment - attachment storage system not supported [id number] Can be viewed in source system Main OR PACU I Recordon 11-06 Main OR PACU I Record Main OR PACU I Rec ord PACU Phase I Document Type FT Summary Primary Physician: Louise Whipple MD Finalized Date/Time: 11/16/23 14:06:18 Pt. Name: RYLEE ROPER D.O.B./Sex: 1965 Female Med Rec #: [id number] Physician: Paul Landaverde MD Financial #: [id number] Pt. Type: O Room/Bed: / Admit/Disch: 11/16/23 10:50:09 - Institution: Case Times PACU I FT Pre-Care Text: Identifies barriers to communication and implements measures to provide psychological support Develops individualized plan of care, and ensures continuity of care Maintains patient's dignity and privacy, and maintains patient confidentiality Identifies and reports philosophical, cultural, and spiritual beliefs and values Identifies individual values and wishes concerning care Implements aseptic technique, and administers prescribed antibiotic therapy and immunizing agents as ordered Evaluates postoperative tissue perfusion Implements thermoregulation measures, and monitors body temperature Evaluates postoperative respiratory status Evaluates postoperative cardiac status Evaluates postoperative neurological status Assesses pain control, collaborated in initiating patient-controlled analgesia and implements alternative methods of pain control Verifies allergies, administers prescribed medications and solutions, evaluates response to medications Entry 1 In PACU I 11/16/23 13:08:00 Discharge from PACU 11/16/23 14:00:00 I Outcomes Met? Yes Last Modified By: Colleen Hill RN 11/16/23 14:05:56 Post-Care Text: The patient demonstrates knowledge of the expected response to the operative or invasive procedure The patient's care is consistent with the individualized perioperative plan of care The patient's right to privacy is maintained The patient's value system, lifestyle, ethnicity, and culture are considered, respected, and incorporated into the perioperative plan of care The patient participates in decisions affecting his or her perioperative plan of care The patient is free from signs and symptoms of infection The patient has wound/tissue perfusion consistent with or improved from baseline levels established preoperatively The patient is at or returning to normothermia at the conclusion of the immediate postoperative period The patient's respiratory function is consistent with or improved from baseline levels established preoperatively The patient's cardiovascular status is consistent with or improved from baseline levels established preoperatively The patient's cardiovascular status is consistent with or improved from baseline levels established preoperatively The patient demonstrates and/or reports adequate pain control throughout the perioperative period The patient received appropriate medication(s), safely administered during the perioperative period Acuity Level PACU I FT Entry 1 Start Time 11/16/23 13:08:00 Stop Time 11/16/23 14:00:00 Acuity Level Acuity Level I Last Modified By: Colleen Hill RN 11/16/23 14:06:10 Finalized By: Colleen Hill RN Document Signatures Signed By: Colleen Hill RN 11/16/23 14:06 Normal [facility] Main OR Preoperative Recordo n 11-16-2023 Main OR Preoperative Record Main OR Preoperative Record Holding Area Document Type FT Summary Primary Physician: Louise Whipple MD Finalized Date/Time: 11/16/23 11:13:45 Pt. Name: RYLEE ROPER/Sex: 1965 Female Med Rec #: [id number] Physician: Saima WATKINS, Paul Berrios Financial #: [id number] Pt. Type: O Room/Bed: / Admit/Disch: 11/16/23 10:50:09 - Institution: Case Times Holding FT Pre-Care Text: Verifies consent for planned procedure, identifies individual values and wishes concerning care, includes family members in perioperative teaching Secures patient's records' belongings, and valuables, maintains patient's dignity and privacy, and maintains patient confidentiality Entry 1 In Holding 11/16/23 11:08:00 Outcomes Met? Yes Last Modified By: Guanakito Rcihter RN 11/16/23 11:11:55 Post-Care Text: The patient participates in decisions affecting his or her perioperative plan of care The patient's right to privacy is maintained Surgery Checklist FT Entry 1 Patient Birthday, ID Band Procedure History and Physical, Identification: Check, Patient Verification: Surgical Consent, With Participation Patient NPO after Midnight: No Date/Time: 11/16/23 07:45:00 Results Reviewed pale yellow liquid Personal Items: Glasses Comments: bowel results Personal Items glasses, clothing, shoes Limitations: none Comment: Complaints of Pain: No Pain Comment: denies Operative Site n/a Marked By: n/a Marking: Location: n/a Availability Equipment Verified: Does Patient Smoke No Patient states Yes Comment - Adult Clarence- spouse postop adult Supervision supervision available Case Cancelled in No Holding Area see comments below for reason Last Modified By: Guanakito Richter RN 11/16/23 11:13:43 General Comments: pt finished bowel prep at 0745,per patient nothing to eat or drink since MSRN Finalized By: Guanakito Richter RN Document Signatures Signed By: Guanakito Richter RN 11/16/23 11:13 Normal [facility] CHEMISTRYOrdered By: SYSTEM SYSTEM on 10-13-2022 Anion gap [Moles/Vol] 12 mmol/L Normal 6 - 16 mEq/L [facility] Calcium [Mass/Vol] 9.3 mg/dL Normal 8.9 - 11. 1 mg/dL [facility] Chloride [Moles/Vol] 108 mmol/L Normal 101 - 1 11 mmol/L [facility] CO2 [Moles/Vol] 24 mmol/L Normal 21 - 31 mmol/L [facility] Creatinine [Mass/Vol] 0.9 mg/dL Normal 0.5 - 1.3 mg/dL [facility] GFR/1.73 sq M.predicted among non-blacks MDRD (S/P/Bld) [Vol rate/Area] 75 mL/min/1.73 m2 Normal >=59mL/min /1.73 m2 [facility] Chem S Glucose [Mass/Vol] 115 mg/dL Normal 55 - 199 mg/dL [facility] Potassium [Moles/Vol] 4.4 mmol/L Normal 3.5 - 5.3 mmol/L [facility] Sodium [Moles/Vol] 140 mmol/L Normal 135 - 145 mmol/L [facility] Urea nitrogen [Mass/Vol] 15 mg/dL Normal 5 - 21 mg/dL [facility] Urea nitrogen/Creatinine [Mass ratio] 17 mg/mg Normal 10 - 20 [facility] HEMATOLOGYOrdered By: Daphney Lamar on 10-13-2022 Erythrocyte distribution width (RBC) [Ratio] 13.3 % Normal 10.9 - 14.2 % [facility]eAutoSS Hematocrit (Bld) [Volume fraction] 39.6 % Normal 34.0 - 46.0 % [facility]eAutoSS Hemoglobin (Bld) [Mass/Vol] 13.5 g/dL Normal 12.0 - 16.0 gm/dL [facility] HemeAutoSS MCH (RBC) [Entitic mass] 28.8 pg Normal 27. 0 - 34.0 pg [facility] HemeAutoSS MCHC (RBC) [Mass/Vol] 34.1 g/dL Normal 31.4 - 36.0 gm/dL [facility] HemeAutoSS MCV (RBC) [Entitic vol] 84.4 fL Normal 80.0 - 100.0 fL [facility] HemeAutoSS Platelet mean volume (Bld) [Entitic vol] 9.0 fL Normal 6.4 - 10.8 fL [facility] HemeAutoSS Platelets (Bld) [#/Vol] 261.0 E9/L Normal 150. 0 - 500.0 E9/L [facility] HemeAutoSS RBC (Bld) [#/Vol] 4.7 E12/L Normal 4.3 - 5.9 E12/L [facility] HemeAutoSS WBC corrected for nucl RBC Auto (Bld) [#/Vol] 6.6 E9/L Normal 4.0 - 11.0 E9/L [facility] HemeAutoSS CNOVon 08-07-2018 CNOV Office Visit ([facility]) ----- RYLEE ROPER ([id number]) 1965 F Date Time Provider Department 08/07/18 11:30 AM SAMRA DUNN During your visit today, we recorded the following information about you: CALE Vargas 08/07/2018 12:45 PM Signed [facility] Consultation Note Genetic Counselor: Samra Dunn MS, [facility] Patient: Rylee Roper Patient Name and confirmed at initiation of visit HIGH LEVEL SUMMARY: ? The patient's family history is potentially suggestive of a hereditary breast cancer syndrome. ? The patient provided informed consent for Common Hereditary Cancers Panel through [facility]. Results are expected in 2-3 weeks. IDENTIFICATION AND CHIEF COMPLAINT: Dr. Harsh Martin requested a consultation for genetic counseling and risk assessment for Rylee Roper, a 53 year old female, for discussion of her family history of breast cancer. She presents to clinic today, accompanied by her daughter, to discuss the possibility of a genetic predisposition to cancer, and to further clarify her risks, as well as her family members' risks for cancer. HISTORY OF PRESENT ILLNESS: Rylee Roper is a 53 year old female with no personal history of cancer. Her mother, 2 maternal aunts, and maternal grandmother all had breast cancer. PAST MEDICAL HISTORY Diagnosis Date - Hypertension PAST SURGICAL HISTORY Procedure Laterality Date - DANDC - THERMAL ENDOMETRIAL ABLATION CANCER SURVEILLANCE HISTORY: Mammograms: Yes Colonoscopy: No EGD: No GI Polyps: N/A REPRODUCTIVE HISTORY AND PERSONAL RISK ASSESSMENT FACTORS: Weight: No data found for this vital: Wt Height: No data found for this vital: Ht Uterus Intact: Yes Ovaries Intact: Yes SOCIAL HISTORY: Social History Tobacco Use - Smoking status: Not on file Substance Use Topics - Alcohol use: Not on file - Drug use: Not on file FAMILY HISTORY: We obtained a detailed, 4-generation family history. Significant diagnoses are listed below: A copy of the patient's pedigree will be available under the scanned documents tab following today's visit. GENETIC COUNSELING RISK ASSESSMENT, DISCUSSION, AND SUGGESTED FOLLOW UP: We reviewed the natural history and genetic etiology of sporadic, familial and hereditary cancer syndromes. The patient's family history is potentially suggestive of: a hereditary breast cancer syndrome We discussed that the best person to begin with genetic testing is a family member with a history of cancer. Mrs. Roper's mother who was diagnosed with breast cancer would be the most appropriate relative for genetic testing. However, this relative is unavailable for testing. Therefore we discussed the limitations of interpreting tests results for an unaffected individual. The patient meets NCCN HBOC testing criteria since her mother had a personal history of breast cancer diagnosed <= 45 years of age. We discussed that identification of a hereditary cancer syndrome may help her care providers tailor her medical management. If a mutation is detected, the National Comprehensive Cancer Network and/or expert opinion recommendations would include increased cancer surveillance and prophylactic surgery options. If a mutation is detected, the patient will be referred back to the referring provider and to any additional appropriate care providers to discuss the relevant options. Inheritance of hereditary cancer syndromes was discussed with the patient. If a mutation is not found in the patient, this will decrease the likelihood of a hereditary cancer syndrome for the patient, however it cannot rule it out as the explanation for the family history of breast cancer. Cancer surveillance options would be discussed for the patient according to the appropriate standard National Comprehensive Cancer Network and French Cancer Society guidelines, with consideration of their personal and family history risk factors. In this case, the patient will be referred back to their care providers for discussions of management. After considering the risks, benefits, and limitations, the patient chose to pursue and provided informed consent for the following testing: Common Hereditary Cancers Panel through [facility]. The Common Hereditary Cancer Panel includes APC, TACHO, AXIN2, BARD1, BMPR1A, BRCA1, BRCA2, BRIP1, CDH1, CDK4, CDKN2A, CHEK2, CTNNA1, DICER1, EPCAM, GREM1, HOXB13, KIT, MEN1, MLH1, MSH2, MSH3, MSH6, MUTYH, NBN, NF1, NTHL1, PALB2, PDGFRA, PMS2, POLD1, POLE, PTEN, RAD50, RAD51C, RAD51D, SDHA, SDHB, SDHC, SDHD, SMAD4, SMARCA4, STK11, TP53, TSC1, TSC2, VHL. We discussed that an NGS panel can rarely result in an unexpected finding in a gene which may or may not be related to the presenting phenotype. Per the patient's request, we will contact her by telephone to discuss these results. A follow up genetic counseling visit will be scheduled if requested. The patient was seen for a total of 10 minutes, greater than 50% of which was spent [id number] counseling. This plan is being carried out per Dr. Yas Carlos's recommendations. This note will also be sent to the referring provider via the electronic medical record. Samra Dunn MS, [facility], Licensed Genetic Counselor [facility] CC: Dr. Alexey Carlos CC BY US MAIL: Harsh Martin [address] [facility] [id number] Referring Provider: SELF [[id number]] Allergies As of Date: 08/07/2018 (Not on File) Date Reviewed: Never Reviewed Primary Visit Diagnosis:Family history of malignant neoplasm of breast [Z80.3] Problem List As Of Date: 08/07/2018 (None) Encounter Status:Closed by SAMRA DUNN on 08/07/18 [facility] PROGRESSon 08-07-2018 Protein mass conc HNO ID: [id number] Author: Samar Dunn Service: ? Author Type: Genetic Counselor Type: Progress Notes Filed: 08/07/2018 12:45 PM Note Text: [facility] Consultation Note Genetic Counselor: Samra Dunn, MS, [facility] Patient: Rylee Roper Patient Name and confirmed at initiation of visit HIGH LEVEL SUMMARY: ? The patient's family history is potentially suggestive of a hereditary breast cancer syndrome. ? The patient provided informed consent for Common Hereditary Cancers Panel through [facility]. Results are expected in 2-3 weeks. IDENTIFICATION AND CHIEF COMPLAINT: Dr. Harsh Martin requested a consultation for genetic counseling and risk assessment for Rylee Roper, a 53 year old female, for discussion of her family history of breast cancer. She presents to clinic today, accompanied by her daughter, to discuss the possibility of a genetic predisposition to cancer, and to further clarify her risks, as well as her family members' risks for cancer. HISTORY OF PRESENT ILLNESS: Rylee Roper is a 53 year old female with no personal history of cancer. Her mother, 2 maternal aunts, and maternal grandmother all had breast cancer. PAST MEDICAL HISTORY Diagnosis Date - Hypertension PAST SURGICAL HISTORY Procedure Laterality Date - DANDC - THERMAL ENDOMETRIAL ABLATION CANCER SURVEILLANCE HISTORY: Mammograms: Yes Colonoscopy: No EGD: No GI Polyps: N/A REPRODUCTIVE HISTORY AND PERSONAL RISK ASSESSMENT FACTORS: Weight: No data found for this vital: Wt Height: No data found for this vital: Ht Uterus Intact: Yes Ovaries Intact: Yes SOCIAL HISTORY: Social History Tobacco Use - Smoking status: Not on file Substance Use Topics - Alcohol use: Not on file - Drug use: Not on file FAMILY HISTORY: We obtained a detailed, 4-generation family history. Significant diagnoses are listed below: A copy of the patient's pedigree will be available under the scanned documents tab following today's visit. GENETIC COUNSELING RISK ASSESSMENT, DISCUSSION, AND SUGGESTED FOLLOW UP: We reviewed the natural history and genetic etiology of sporadic, familial and hereditary cancer syndromes. The patient's family history is potentially suggestive of: a hereditary breast cancer syndrome We discussed that the best person to begin with genetic testing is a family member with a history of cancer. Mrs. Roper's mother who was diagnosed with breast cancer would be the most appropriate relative for genetic testing. However, this relative is unavailable for testing. Therefore we discussed the limitations of interpreting tests results for an unaffected individual. The patient meets NCCN HBOC testing criteria since her mother had a personal history of breast cancer diagnosed <= 45 years of age. We discussed that identification of a hereditary cancer syndrome may help her care providers tailor her medical management. If a mutation is detected, the National Comprehensive Cancer Network and/or expert opinion recommendations would include increased cancer surveillance and prophylactic surgery options. If a mutation is detected, the patient will be referred back to the referring provider and to any additional appropriate care providers to discuss the relevant options. Inheritance of hereditary cancer syndromes was discussed with the patient. If a mutation is not found in the patient, this will decrease the likelihood of a hereditary cancer syndrome for the patient, however it cannot rule it out as the explanation for the family history of breast cancer. Cancer surveillance options would be discussed for the patient according to the appropriate standard National Comprehensive Cancer Network and French Cancer Society guidelines, with consideration of their personal and family history risk factors. In this case, the patient will be referred back to their care providers for discussions of management. After considering the risks, benefits, and limitations, the patient chose to pursue and provided informed consent for the following testing: Common Hereditary Cancers Panel through [facility]. The Common Hereditary Cancer Panel includes APC, TACHO, AXIN2, BARD1, BMPR1A, BRCA1, BRCA2, BRIP1, CDH1, CDK4, CDKN2A, CHEK2, CTNNA1, DICER1, EPCAM, GREM1, HOXB13, KIT, MEN1, MLH1, MSH2, MSH3, MSH6, MUTYH, NBN, NF1, NTHL1, PALB2, PDGFRA, PMS2, POLD1, POLE, PTEN, RAD50, RAD51C, RAD51D, SDHA, SDHB, SDHC, SDHD, SMAD4, SMARCA4, STK11, TP53, TSC1, TSC2, VHL. We discussed that an NGS panel can rarely result in an unexpected finding in a gene which may or may not be related to the presenting phenotype. Per the patient's request, we will contact her by telephone to discuss these results. A follow up genetic counseling visit will be scheduled if requested. The patient was seen for a total of 10 minutes, greater than 50% of which was spent [id number] counseling. This plan is being carried out per Dr. Yas Carlos's recommendations. This note will also be sent to the referring provider via the electronic medical record. Samra Dunn, MS, [facility], Licensed Genetic Counselor [facility] CC: Dr. Alexye Carlos CC BY US MAIL: Harsh Jae Veronica [address] [facility] [place] [id number] [facility] Vital Signs Date Time Vital Sign Value Performing Clinician Facility 05-16-2024 13:41-0500 Body height 162.56 cm LOUISE WHIPPLE MD Work Phone: [facility] 05-16-2024 13:41-0500 Body mass index (BMI) [Ratio] 44.6 kg/m2 LOUISE WHIPPLE MD Work Phone: [facility] 05-16-2024 13:41-0500 Body weight 117.93 kg LOUISE WHIPPLE MD Work Phone: [facility] 05-16-2024 13:41-0500 Diastolic blood pressure 77 mm[Hg] LOUISE WHIPPLE MD Work Phone: [facility] 05-16-2024 13:41-0500 Systolic blood pressure 154 mm[Hg] LOUISE WHIPPLE MD Work Phone: [facility] 04-19-2024 13:35-0500 Body mass index (BMI) [Ratio] 43.9 kg/m2 LOUISE WHIPPLE MD Work Phone: [facility] 04-19-2024 13:35-0500 Body temperature 97.6 [degF] LOUISE WHIPPLE MD Work Phone: [facility] 04-19-2024 13:35-0500 Body weight 116.11 kg LOUISE WHIPPLE MD Work Phone: [facility] 04-19-2024 13:35-0500 Diastolic blood pressure 78 mm[Hg] LOUISE WHIPPLE MD Work Phone: [facility] 04-19-2024 13:35-0500 Heart rate 68 /min LOUISE WHIPPLE MD Work Phone: [facility] 04-19-2024 13:35-0500 Respiratory rate 16 /min LOUISE WHIPPLE MD Work Phone: [facility] 04-19-2024 13:35-0500 SaO2% (BldA) [Mass fraction] 97 % LOUISE WHIPPLE MD Work Phone: [facility] 04-19-2024 13:35-0500 Systolic blood pressure 120 mm[Hg] LOUISE WHIPPLE MD Work Phone: [facility] 12-23-2023 10:25-0400 Blood Pressure Location Louise Whipple [facility] 12-23-2023 10:25-0400 Diastolic blood pressure 83 mm[Hg] Louise Whipple [facility] 12-23-2023 10:25-0400 Heart rate 57 /min Louise Whipple [facility] 12-23-2023 10:25-0400 Systolic blood pressure 152 mm[Hg] Louise Whipple [facility] 11-16-2023 13:50-0400 Diastolic blood pressure 92 mm[Hg] Paul Landaverde [facility] 11-16-2023 13:50-0400 Heart rate 69 /min Paul Landaverde [facility] 11-16-2023 13:50-0400 Respiratory rate 13 /min Miller Sarmini [facility] 11-16-2023 13:50-0400 SaO2% (BldA) [Mass fraction] 95 % Miller Sarmini [facility] 11-16-2023 13:50-0400 Systolic blood pressure 159 mm[Hg] Miller Sarmini [facility] 11-16-2023 13:40-0400 Diastolic blood pressure 92 mm[Hg] Miller Sarmini [facility] 11-16-2023 13:40-0400 Heart rate 68 /min Miller Sarmini [facility] 11-16-2023 13:40-0400 Respiratory rate 18 /min Miller Sarmini [facility] 11-16-2023 13:40-0400 SaO2% (BldA) [Mass fraction] 95 % Miller Sarmini [facility] 11-16-2023 13:40-0400 Systolic blood pressure 159 mm[Hg] Miller Sarmini [facility] 11-16-2023 13:25-0400 Diastolic blood pressure 66 mm[Hg] Miller Sarmini [facility] 11-16-2023 13:25-0400 Heart rate 70 /min Miller Sarmini [facility] 11-16-2023 13:25-0400 Respiratory rate 16 /min Miller Sarmini [facility] 11-16-2023 13:25-0400 SaO2% (BldA) [Mass fraction] 95 % Miller Sarmini [facility] 11-16-2023 13:25-0400 Systolic blood pressure 142 mm[Hg] Miller Sarmini [facility] 11-16-2023 13:08-0400 Body temperature 98.24 [degF] Miller Sarmini [facility] 11-16-2023 13:00-0400 Respiratory rate 12 /min Miller Sarmini [facility] 11-16-2023 12:55-0400 Respiratory rate 19 /min Miller Sarmini [facility] 11-16-2023 12:50-0400 Respiratory rate 19 /min Miller Sarmini [facility] 11-16-2023 11:22-0400 Blood Pressure Location Miller Sarmini [facility] 11-16-2023 11:22-0400 Body temperature 96.8 [degF] Miller Sarmini [facility] 06-16-2023 10:53-0500 Diastolic blood pressure 86 mm[Hg] Susie German [facility] 06-16-2023 10:53-0500 Mean blood pressure 103 mm[Hg] Susie German [facility] 06-16-2023 10:53-0500 Systolic blood pressure 138 mm[Hg] Susie German [facility] 06-16-2023 10:48-0500 Blood Pressure Location Susie German [facility] 06-16-2023 10:48-0500 Body temperature 97.34 [degF] Susie German [facility] 06-16-2023 10:48-0500 Diastolic blood pressure 91 mm[Hg] Susie German [facility] 06-16-2023 10:48-0500 Heart rate 61 /min Susie German [facility] 06-16-2023 10:48-0500 Systolic blood pressure 139 mm[Hg] Susie German [facility] 12-14-2022 10:51-0400 Diastolic blood pressure 86 mm[Hg] Susie German [facility] 12-14-2022 10:51-0400 Mean blood pressure 103 mm[Hg] Susie German [facility] 12-14-2022 10:51-0400 Systolic blood pressure 138 mm[Hg] Susie German [facility] 12-14-2022 10:48-0400 Blood Pressure Location Susie German [facility] 12-14-2022 10:48-0400 Body temperature 96.98 [degF] Susie German [facility] 12-14-2022 10:48-0400 Diastolic blood pressure 93 mm[Hg] Susie German [facility] 12-14-2022 10:48-0400 Heart rate 76 /min Susie German [facility] 12-14-2022 10:48-0400 Systolic blood pressure 149 mm[Hg] Susie German [facility] 09-15-2022 14:43-0400 Diastolic blood pressure 62 mm[Hg] Lemon SALAM [facility] 09-15-2022 14:43-0400 Heart rate 85 /min Lemon SALAM [facility] 09-15-2022 14:43-0400 Mean blood pressure 88 mm[Hg] Lemon SALAM [facility] 09-15-2022 14:43-0400 Respiratory rate 11 /min Lemon SALAM [facility] 09-15-2022 14:43-0400 SaO2% (BldA) [Mass fraction] 96 % Lemon SALAM [facility] 09-15-2022 14:43-0400 Systolic blood pressure 141 mm[Hg] Lemon SALAM [facility] 09-15-2022 14:30-0400 Diastolic blood pressure 80 mm[Hg] Lemon SALAM [facility] 09-15-2022 14:30-0400 Heart rate 89 /min Lemon SALAM [facility] 09-15-2022 14:30-0400 Mean blood pressure 98 mm[Hg] Lemon SALAM [facility] 09-15-2022 14:30-0400 Respiratory rate 12 /min Lemon SALAM [facility] 09-15-2022 14:30-0400 SaO2% (BldA) [Mass fraction] 95 % Lemon SALAM [facility] 09-15-2022 14:30-0400 Systolic blood pressure 135 mm[Hg] Lemon SALAM [place] [address]-10-2023 14:25-0400 Diastolic blood pressure 79 mm[Hg] Lemon SALAM [facility] 09-15-2022 14:25-0400 Heart rate 87 /min Lemon SALAM [facility] 09-15-2022 14:25-0400 Mean blood pressure 97 mm[Hg] Lemon SALAM [facility] 09-15-2022 14:25-0400 Respiratory rate 19 /min Lemon SALAM [facility] 09-15-2022 14:25-0400 SaO2% (BldA) [Mass fraction] 93 % Lemon SALAM [facility] 09-15-2022 14:25-0400 Systolic blood pressure 134 mm[Hg] Lemon SALAM [facility] 09-15-2022 14:18-0400 Body temperature 98.24 [degF] Lemon SALAM [facility] Comment on above: Result Comment: used a different thermom et 09-15-2022 13:07-0400 Blood Pressure Location Lemon SALAM [facility] 09-15-2022 13:07-0400 Body temperature 96.8 [degF] Lemon SALAM [facility] 09-08-2022 21:29-0400 Diastolic blood pressure 96 mm[Hg] Kaylinn Dokken [facility] 09-08-2022 21:29-0400 Heart rate 71 /min Kaylinn Dokken [facility] 09-08-2022 21:29-0400 Respiratory rate 16 /min Kaylinn Dokken [facility] 09-08-2022 21:29-0400 SaO2% (BldA) [Mass fraction] 97 % Kaylinn Dokken [facility] 09-08-2022 21:29-0400 Systolic blood pressure 167 mm[Hg] Kaylinn Dokken [facility] 09-08-2022 20:48-0400 Body temperature 98.96 [degF] Kaylinn Dokken [facility] 09-08-2022 20:48-0400 Diastolic blood pressure 94 mm[Hg] Kaylinn Dokken [facility] 09-08-2022 20:48-0400 Heart rate 76 /min Kaylinn Dokken [facility] 09-08-2022 20:48-0400 Respiratory rate 16 /min Kaylinn Dokken [facility] 09-08-2022 20:48-0400 SaO2% (BldA) [Mass fraction] 99 % Kaylinn Dokken [facility] 09-08-2022 20:48-0400 Systolic blood pressure 169 mm[Hg] Kaylinn Dokken [facility] 02-18-2022 12:56-0400 Diastolic blood pressure 82 mm[Hg] Lemon SALAM [facility] 02-18-2022 12:56-0400 Mean blood pressure 104 mm[Hg] Lemon SALAM [facility] 02-18-2022 12:56-0400 Systolic blood pressure 148 mm[Hg] Lemon SALAM [facility] 02-18-2022 12:54-0400 Blood Pressure Location Lemon SALAM [facility] 02-18-2022 12:54-0400 Diastolic blood pressure 84 mm[Hg] Lemon SALAM [facility] 02-18-2022 12:54-0400 Heart rate 68 /min Lemon SALAM [facility] 02-18-2022 12:54-0400 Respiratory rate 16 /min Lemon SALAM [facility] 02-18-2022 12:54-0400 Systolic blood pressure 152 mm[Hg] Lemon SALAM [facility] Encounters Encounter Date Encounter Type Care Provider Facility Start: 12-12-2024 ambulatory Marcelina Anderson Facility :[facility] Start: 10-17-2024 End: 10-17-2024 Patient encounter procedure Jayashree CATES -[facility] Work Phone: Start: 10-17-2024 End: 10-17-[address] Marcelina Anderson MD Work Phone: [facility] Work Phone: Start: 07-03-2024 End: 07-03-2024 ambulatory LOUISE WHIPPLE MD Work Phone: [facility] Work Phone: Start: 07-03-2024 End: 07-03-2024 Patient encounter procedure Gladis CATES -[facility] Work Phone: Start: 07-03-2024 End: 07-03-2024 ambulatory Marcelina Anderson Facility:[facility] Start: 05-16-2024 End: 05-16-2024 Patient encounter procedure Gladis CATES -[facility] Work Phone: Start: 05-16-2024 End: 05-16-2024 Patient encounter status Gladis Espinal [employer] Start: 05-16-2024 End: 05-16-2024 ambulatory Marcelina Anderson Facility:[facility] Start: 04-19-2024 End: 04-19-[address] Marcelina Anderson MD -[facility] Work Phone: Start: 04-19-2024 End: 04-19-2024 ambulatory Marcelina Monica Facility:[facility] Start: 04-02-2024 End: 04-02-2024 Patient encounter procedure LOUISE WHIPPLE [place] [facility] Work Phone: Start: 04-02-2024 End: 04-02-2024 ambulatory Marcelina Anderson Facility:[facility] Start: 12-28-2023 End: 01-07-2024 Pre-admission assessment Louise Whipple [facility] Start: 12-23-2023 End: 12-23-2023 ambulatory Louise Whipple Facility:[facility] Start: 12-23-2023 End: 12-23-2023 Patient encounter procedure Louise Whipple [facility] Start: 11-16-2023 End: 11-16-2023 ambulatory Miller Yash Doradomini Facility[facility] Start: 11-16-2023 End: 11-16-2023 Patient encounter procedure Miller Talal Avemini [facility] Start: 08-16-2023 End: 08-16-2023 ambulatory OLGA BRIAN Not Available Start: 06-30-2023 End: 06-30-2023 Patient encounter procedure Leidy Hassan [facility] Start: 06-16-2023 End: 06-16-2023 Patient encounter procedure Susie Porter [facility] Start: 04-27-2023 End: 04-27-2023 ambulatory MITESH B MINI Not Available Start: 04-13-2023 End: 04-13-2023 ambulatory MITESH B MINI Not Available Start: 03-30-2023 End: 03-30-2023 ambulatory MITESH B MINI Not Available Start: 03-23-2023 End: 03-23-2023 ambulatory MITESH B MINI Not Available Start: 12-14-2022 End: 12-14-2022 Patient encounter procedure Susie Porter [facility] Start: 10-13-2022 ambulatory Facility:[id number] Start: 10-13-2022 End: 10-13-2022 Patient encounter procedure Olga Brian [facility] Start: 09-15-2022 End: 09-15-2022 Patient encounter procedure Ion MENDIETA [facility] Start: 09-08-2022 End: 09-08-2022 Emergency department patient visit Alok Willson [facility] Start: 08-30-2022 End: 08-30-2022 Patient encounter procedure Mike Peralta III [facility] Start: 06-28-2022 End: 06-28-2022 Patient encounter procedure Leidy Hassan [facility] Start: 02-18-2022 End: 07-04-2022 Recurring Ion MENDIETA [facility] Start: 02-18-2022 End: 04-13-2022 Pre-admission assessment Ion MENDIETA [facility] Start: 02-18-2022 End: 02-18-2022 Patient encounter procedure Lemonmichelle MENDIETA [facility] Start: 08-07-2018 End: 08-08-2018 Patient encounter procedure SAMRA ([facility] Procedures Date Procedure Procedure Detail Performing Clinician Start: 07-03-2024 Screening mammography LOUISE WHIPPLE MD Work Phone: Start: 04-02-2024 US scan of thyroid LOUISE WHIPPLE MD Work Phone: Start: 11-16-2023 Colonoscopy Paul Landaverde Start: 11-16-2023 Esophagogastroduodenoscopy Paul Cota [employer] Start: 09-15-2022 Colonoscopy Ion MENDIETA Start: 09-15-2022 Esophagogastroduodenoscopy Ion MENDIETA Start: 05-01-2013 hysteroscopy, dilation and curettage ablation Ion TOLEDO d&c 1 Lemonmichelle MENDIETA Comment on above: x2 for misscarriage. Screening for malign ant neoplasm of cervix Z12.4 - Encounter for screening for malignant neoplasm of cervix LOUISE WHIPPLE MD Work Phone: Plan of Treatment Date Care Activity Detail Author Start: 04-19-2024 Patient referral [facility] Work Phone: Patient referral [facility] Work Phone: Immunizations Immunization Date Immunization Notes Care Provider Fa mary jane 01-20-2024 zoster vaccine recombinant LOUISE WHIPPLE MD Work Phone: [facility] 08-16-2023 zoster vaccine recombinant Louise Whipple [facility] NEGATED: Highlighted row has not occurred!12-23-2023 influenza virus vaccine, unspecified formulation Louise Whipple [facility] NEGATED: Highlighted row has not occurred!02-18-2022 influenza virus vaccine, unspecified formulation Ion MENDIETA [facility] Payers Date Payer Category Payer Self-pay 2024 Unknown [id number] 2023 Unknown 2022 Unknown [id number] 1965 Unknown [id number] 2.16. [id number] 1965 Unknown [id number] 2.16.84 [id number] 1965 Unknown [id number] 2.16.840 .[id number] 1965 Unknown [id number] 2.16.840 .[id number] 1965 Unknown [id number] 2.16.840 .1.175634.3.579.2.1259 1965 Unknown [id number] 2.16.840 .1.120659.3.579.2.1259 1965 Unknown [id number] 2.16.8 40.1.798105.3.579.2.727 1965 Unknown [id number] 2.16.8 40.1.076024.3.579.2.727 Unknown [id number] Unknown [id number] 2.16.8 [id number] Unknown [id number] 2.16.8 [id number] Unknown [id number] 2.16.8 [id number] Unknown [id number] 2.16.8 [id number] Unknown [id number] 2.16.8 [id number] Unknown [id number] 2.16.8 [id number] Social History Date Type Detail Facility Start: 02-18-2022 End: 10-17-2024 Tobacco smoking status Never smoked tobacco (finding) [facility] Sex Assigned At Female [facility] Tobacco smoking status Never [facility] Start: 07-16-2024 Sex Female (finding) [facility] Start: 1965 Sex Assigned At Female [facility] Medical Equipment Procedure Code Equipment Code Equipment Origin al Text Equipment Identifier Dates Unknown Unknown 09/15/22 Non Biological Unknown FDA Start: 09-15-2022 Unknown Unknown 09/15/22 Non Biological Unknown FDA Start: 09-15-2022 Unknown Unknown 09/15/22 Non Biological Unknown FDA Start: 09-15-2022 Unknown Unknown 09/15/22 Non Biological Unknown FDA Start: 09-15-2022 Unknown Unknown 09/15/22 Non Biological Unknown FDA Start: 09-15-2022 Unknown Unknown 09/15/22 Non Biological Unknown FDA Start: 09-15-2022 Unknown Unknown 09/15/22 Non Biological Unknown FDA Start: 09-15-2022 Unknown Unknown 09/15/22 Non Biological Unknown FDA Start: 09-15-2022 Functional Status Date Assessment Result Facility 12-23-2023 Functional Status N/A [facility] 11-16-2023 Functional Status N/A [facility] 06-16-2023 Functional Status N/A [facility] 12-14-2022 Functional Status N/A [facility] 09-15-2022 Functional Status N/A [facility] 09-08-2022 Functional Status N/A [facility] 02-18-2022 Functional Status N/A [facility] Clinical Notes 09-08-2022 to 10-17-2024 Note Date & Type Note Facility 10-17-[address] [facility] 04-19-2024 Evaluation note Diagnosis Onset Date Resolution Monoallelic mutation of MUTYH gene acute April 19 1:15pm Immunization declined noneactive Dec ember 2023 1:15pm Acquired hypothyroidism noneactive D ecember 2023 1:15pm Establishing care with new doctor, encounter for noneactive April 19 1:15pm Lipoma noneactive April 19, 2024 1:15pm Screening for cervical cancer noneactive April 19 1:15pm Anxiety noneactive April 19, 2024 1:15pm Seasonal allergies noneactive Decemb er 2023 1:15pm Essential hypertension noneactive De cember 2023 1:15pm Chronic pain of both knees noneactive April 19 1:15pm GERD (gastroesophageal reflux disease) noneactive April 19 1:15pm Encounter for routine gynecological examination noneactive May 16 1:37pm [facility] Work Phone: [phone] 107-745808-16-2024 Evaluation + Plan note Future Scheduled Tests Radiology* US Thyroid 12/23/23 [facility] 07-12-2024 NoteProgress Note-Physician Patient: RYLEE ROPER Age: 58 years Sex: Female : 1965 Associated Diagnoses: None Author: Harsh Arellano Jr, DO Preoperative Information Anesthesia Preop Info: Time patient last ate or drank 11/16/2023 00:00:00. Anesthesia history: Patient history: None. Family history+: None. Informed consent: Signed by patient. Re-evaluation prior to induction: Initial evaluation reviewed: No significant change. Review of Systems Eye: Negative except as documented in history of present illness. Ear/Nose/Mouth/Throat: Negative except as documented in history of present illness. Respiratory: Negative except as documented in history of present illness. Cardiovascular: Negative except as documented in history of present illness. Musculoskeletal: Negative except as documented in history of present illness. Neurologic: Negative except as documented in history of present illness. Health Status Allergies: Allergic Reactions (Selected) Severity Not Documented Cefdinir- Nausea and vomiting and unknown. Omnicef- Nausea and vomiting. 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 566757835 / Confirmed HTN (hypertension) / SNOMED CT [id number] / Confirmed History of colon polyps / SNOMED CT 5254652608 / Confirmed Hemorrhoids / SNOMED CT 128281163 / Confirmed Chronic GERD / SNOMED CT 909485307 / Confirmed GERD with esophagitis / SNOMED CT 931789079 / Confirmed Fundic gland polyps of stomach, benign / SNOMED CT 172517489 / Confirmed Family history of breast cancer in mother / SNOMED CT 6995561611 / Confirmed Family history of colon cancer / SNOMED CT 567306201 / Confirmed Extreme obesity / ICD-9-CM 278.01 / Possible MRSA (methicillin resistant staph aureus) culture positive / SNOMED CT 5810629669 / Confirmed MRSA breast abscess 01/26/2020 Arthritis / SNOMED CT [id number] / Confirmed Anxiety / SNOMED CT [id number] / Confirmed Antral ulcer / SNOMED CT 7373243624 / Confirmed Gas pain / SNOMED CT 933218021 / Confirmed Resolved: Dysphagia / SNOMED CT 20181507 Histories Procedure history: Colonoscopy ([id number]) on 09/15/2022 at 57 Years. Esophagogastroduodenoscopy ([id number]) on 09/15/2022 at 57 Years. hysteroscopy, dilation and curettage ablation on 05/01/2013 at 47 Years. d&c. Comments: 04/18/2013 12:46 MICHAEL Burt RN, Анна x2 for misscarriage. Social History Social & Psychosocial Habits Alcohol 06/16/2023 Risk Assessment: Denies Alcohol Use 06/16/2023 Use: Current Comment: denies - 12/12/2019 15:55 - Nahum DÍAZ, Jayashree Isaacs Exercise Comment: Walking 1-2 times a week - 12/11/2018 17:44 - Guanakito Severino CMA Other 06/16/2023 Name: Caffeine- 2-3 cups daily Substance Abuse 06/16/2023 Risk Assessment: Denies Substance Abuse 06/16/2023 Use: Current Comment: denies - 12/12/2019 15:56 - Nahum DÍAZ, Jayashree Isaacs Tobacco 06/16/2023 Risk Assessment: Denies Tobacco Use 06/16/2023 Tobacco Use: Never (less than 100 in l Smokeless tobacco use: Never 06/16/2023 Tobacco Use: Never (less than 100 in l Smokeless tobacco use: Never Type: Cigarettes 06/16/2023 Tobacco Use: Never (less than 100 in l 06/16/2023 Tobacco Use: Never (less than 100 in l Smokeless tobacco use: Never 06/16/2023 Tobacco Use: Never (less than 100 in l Smokeless tobacco use: Never . Physical Examination Airway: Mallampati classification: II (soft palate, fauces, uvula visible). Respiratory: adequate air exchange. Cardiovascular: Regular rhythm. Plan [place] [employer] Anesthesiologists (ASA) physical status classification: Class III. Anesthetic Preoperative Plan: Anesthesia General.[facility] Comment on above:Result Comment: Electronically Signed By: Harsh Arellano Jr, DO\.br\Date and Time Signed: 11/18/23 09:19 [id number] NoteProgress Note-Physician Patient: RYLEE ROPER Age: 58 years Sex: Female : 1965 Associated Diagnoses: None Author: Harsh Arellano Jr, DO Postoperative Information Postoperative disposition: Postoperative disposition: To PACU. Optimetrix number: Optimetrix number [id number]. Anesthetic utilized: General. Health Status Allergies: Allergic Reactions (Selected) Severity Not Documented Cefdinir- Nausea and vomiting and unknown. Omnicef- Nausea and vomiting. Physical Examination Vital Signs 11/16/2023 13:15 EDT Heart Rate Monitored 65 bpm Respiratory Rate Monitored 16 br/min Systolic Blood Pressure 124 mmHg Diastolic Blood Pressure 70 mmHg SpO2 95 % 11/16/2023 13:10 EDT Heart Rate Monitored 66 bpm Respiratory Rate Monitored 19 br/min Systolic Blood Pressure 130 mmHg Diastolic Blood Pressure 63 mmHg SpO2 90 % 11/16/2023 13:08 EDT Temperature Temporal Artery 36.8 DegC Heart Rate Monitored 67 bpm Respiratory Rate Monitored 17 br/min Systolic Blood Pressure 138 mmHg Diastolic Blood Pressure 69 mmHg SpO2 93 % Pain Assessment: Controlled. General: Awake, Alert, Appropriate. Respiratory: Adequate air exchange. Cardiovascular: Stable, Normal peripheral perfusion. Neurological: Normal sensory function, Normal motor function. Assessment Anesthetic outcome No anesthetic complications noted. Adequate pain relief. able to void without difficulty, able to ambulate with assist, tolerating PO intake, no N/V. Review / Management Condition: Stable. Plan Transfer/Discharge: Transfer/Discharge Discharge when meets criteria ( To home ).[facility]Result Comment: Electronically Signed By: Harsh Arellano Jr, DO\.timbo\Date and Time Signed: 11/18/23 09:17 EDT 11-16-2023 Hospital Discharge instructions Patient Education 11/16/2023 13:21:33 Stomach Polyps Stomach Polyps A stomach polyp, also called a gastric polyp, is a growth on the lining of the stomach. A stomach polyp may be found by chance when you are being examined for another reason. Most polyps are not dangerous, but some can be harmful because of their size, location, or type. Polyps that can become harmful include: Large polyps. These can turn into open sores called ulcers. Ulcers can lead to stomach bleeding. Gastric outlet obstructions. These polyps block food from moving from the stomach to the small intestine. Adenomas. These polyps can become cancerous. What are the causes? Stomach polyps form when the lining of the stomach gets inflamed or damaged. Stomach inflammation and damage may be caused by: A long-lasting stomach condition, such as gastritis. Taking certain medicines to reduce stomach acid over a long period of time. An inherited condition called familial adenomatous polyposis. An infection caused by a type of bacteria called Helicobacter pylori, or H. pylori. What are the signs or symptoms? Usually, this condition does not cause any symptoms. If you do have symptoms, they may include: Pain or tenderness in the abdomen. Nausea. Trouble eating or swallowing. Blood in the stool (feces). Dark red or black coloring of the stool. How is this diagnosed? This condition may be diagnosed with: Your medical history. A medical procedure called an upper endoscopy. This procedure uses a flexible tube with a tiny camera on the end to look inside your stomach. A lab test in which a part of the polyp is examined. This test is done by removing a polyp tissue sample during an endoscopy to look at it under a microscope (biopsy). How is this treated? Treatment depends on the type, location, and size of the polyps. Treatment may include: Checking the polyps regularly with an endoscopy procedure. Removing the polyps with an endoscopy procedure. This may be done if the polyps are harmful or can become harmful. Removing a polyp often prevents problems from developing. Removing the polyps with a surgery called a partial gastrectomy. This may be done in rare cases to remove very large polyps. Treating the underlying condition that caused the polyps. Follow these instructions at home: Take sgju-lvm-fkgulbr and prescription medicines only as told by your health care provider. Avoid foods and drinks that make your symptoms worse. Make sure that all the food you eat is properly cooked and stored. This will help prevent bacterialinfection, such as H. pylori infection. Do not drink alcohol if your health care provider tells you not to drink. Do not use any products that contain nicotine or tobacco. These products include cigarettes, chewing tobacco, and vaping devices, such as e-cigarettes. If you need help quitting, ask your health careprovider. Keep all follow-up visits. Your health care provider will want to look for stomach polyps regularly. Contact a health care provider if: You develop new symptoms such as: ?Loss of appetite. ?Feeling full after eating a small meal. ?Vomiting. ?Losing weight without trying. ?Feeling tired (fatigue). Your symptoms get worse. You cannot eat or drink. You have questions about the tests or procedures you may need. Get help right away if: You vomit blood. You have severe abdominal pain. You have blood in your stool. Summary A stomach polyp, also called a gastric polyp, is a growth on the lining of the stomach. Usually, this condition does not cause any symptoms. If you do have symptoms, you may have abdominal pain, nausea, trouble eating or swallowing, or blood in your stool. This condition may be diagnosed with a medical procedure called an upper endoscopy. Get help right away if you vomit blood. This information is not intended to replace advice given to you by your health care provider. Make sure you discuss any questions you have with your health care provider. Document Revised: 06/22/2022 Document Reviewed: 06/22/2022 [employer] Patient Education 2022 [employer] 11/16/2023 13:16:26 Upper Endoscopy, Adult, Care After Upper Endoscopy, Adult, Care After After the procedure, it is common to have a sore throat. It is also common to have: Mild stomach pain or discomfort. Bloating. Nausea. Follow these instructions at home: The instructions below may help you care for yourself at home. Your health care provider may give you more instructions. If you have questions, ask your health care provider. If you were given a sedative during the procedure, it can affect you for several hours. Do not drive or operate machinery until your health care provider says that it is safe. If you will be going home right after the procedure, plan to have a responsible adult: ?Take you home from the hospital or clinic. You will not be allowed to drive. ?Care for you for the time you are told. Follow instructions from your health care provider about what you may eat and drink. Return to your normal activities as told by your health care provider. Ask your health care provider what activities are safe for you. Take fvmv-eyw-ucefjfr and prescription medicines only as told by your health care provider. Contact a health care provider if you: Have a sore throat that lasts longer than one day. Have trouble swallowing. Have a fever. Get help right away if you: Vomit blood or your vomit looks like coffee grounds. Have bloody, black, or tarry stools. Have a very bad sore throat or you cannot swallow. Have difficulty breathing or very bad pain in your chest or abdomen. These symptoms may be an emergency. Get help right away. Call 911. Do not wait to see if the symptoms will go away. Do not drive yourself to the hospital. Summary After the procedure, it is common to have a sore throat, mild stomach discomfort, bloating, and nausea. If you were given a sedative during the procedure, it can affect you for several hours. Do not drive until your health care provider says that it is safe. Follow instructions from your health care provider about what you may eat and drink. Return to your normal activities as told by your health care provider. This information is not intended to replace advice given to you by your health care provider. Make sure you discuss any questions you have with your health care provider. Document Revised: 08/04/2022 Document Reviewed: 08/04/2022 [employer] Patient Education 2022 [employer] 11/16/2023 13:16:14 Gastritis, Adult Gastritis, Adult Gastritis is inflammation of the stomach. There are two kinds of gastritis: Acute gastritis. This kind develops suddenly. Chronic gastritis. This kind is much more common. It develops slowly and lasts for a long time. Gastritis happens when the lining of the stomach becomes weak or gets damaged. Without treatment, gastritis can lead to stomach bleeding and ulcers. What are the causes? This condition may be caused by: An infection. Drinking too much alcohol. Certain medicines. These include steroids, antibiotics, and some iuhh-gor-okxvzxe medicines, such as aspirin or ibuprofen. Having too much acid in the stomach. Having a disease of the stomach. Other causes may include: An allergic reaction. Some cancer treatments (radiation). Smoking cigarettes or the use of products that contain nicotine or tobacco. In some cases, the cause of this condition is not known. What increases the risk? Having a disease of the intestines. Having a disease in which the body's immune system attacks the body (autoimmune disease), such as Crohn's disease. Using aspirin or ibuprofen and other NSAIDs to treat other conditions, such as heart disease or chronic pain. Stress. What are the signs or symptoms? Symptoms of this condition include: Pain or a burning sensation in the upper abdomen. Nausea. Vomiting. An uncomfortable feeling of fullness after eating. Weight loss. Bad breath. Blood in your vomit or stool (feces). In some cases, there are no symptoms. How is this diagnosed? This condition may be diagnosed based on your medical history, a physical exam, and tests. Tests may include: Your medical history and a description of your symptoms. A physical exam. Tests. These can include: ?Blood tests. ?Stool tests. ?A test in which a thin, flexible instrument with a light and a camera is passed down the esophagusand into the stomach (upper endoscopy). ?A test in which a tissue sample is removed to look at it under a microscope (biopsy). How is this treated? This condition may be treated with medicines. The medicines that are used vary depending on the cause of the gastritis. If the condition is caused by a bacterial infection, you may be given antibiotic medicines. If the condition is caused by too much acid in the stomach, you may be given medicines called H2 blockers, proton pump inhibitors, or antacids. Treatment may also involve stopping the use of certain medicines such as aspirin or ibuprofen and other NSAIDs. Follow these instructions at home: Medicines Take zswg-ony-qghacnv and prescription medicines only as told by your health care provider. If you were prescribed an antibiotic medicine, take it as told by your health care provider. Do notstop taking the antibiotic even if you start to feel better. Alcohol use Do not drink alcohol if: ?Your health care provider tells you not to drink. ?You are , may be , or are planning to become . If you drink alcohol: ?Limit your use to: ?0 1 drink a day for women. ?0 2 drinks a day for men. ?Know how much alcohol is in your drink. In the [place] one drink equals one 12 oz bottle of beer (355 mL), one 5 oz glass of wine (148 mL), or one 1 oz glass of hard liquor (44 mL). General instructions Eat small, frequent meals instead of large meals. Avoid foods and drinks that make your symptoms worse. Talk with your health care provider about ways to manage stress, such as getting regular exercise or practicing deep breathing, meditation, or yoga. Do not use any products that contain nicotine or tobacco. These products include cigarettes, chewing tobacco, and vaping devices, such as e-cigarettes. If you need help quitting, ask your health careprovider. Drink enough fluid to keep your urine pale yellow. Keep all follow-up visits. This is important. Contact a health care provider if: Your symptoms get worse. Your abdominal pain gets worse. Your symptoms return after treatment. You have a fever. Get help right away if: You vomit blood or a substance that looks like coffee grounds. You have black or dark red stools. You are unable to keep fluids down. These symptoms may represent a serious problem that is an emergency. Do not wait to see if the symptoms will go away. Get medical help right away. Call your local emergency services (911 in the [place] Do not drive yourself to the hospital. Summary Gastritis is inflammation of the lining of the stomach that can occur suddenly (acute) or develop slowly over time (chronic). This condition is diagnosed with a medical history, a physical exam, or tests. This condition may be treated with medicines to treat infection or medicines to reduce the amount of acid in your stomach. Follow your health care provider's instructions about taking medicines, making changes to your diet, and knowing when to call for help. This information is not intended to replace advice given to you by your health care provider. Make sure you discuss any questions you have with your health care provider. Document Revised: 08/29/2021 Document Reviewed: 08/29/2021 [employer] Patient Education 2022 [employer] 11/16/2023 13:16:12 Hiatal Hernia Hiatal Hernia A hiatal hernia occurs when part of the stomach slides above the muscle that separates the abdomen from the chest (diaphragm). A person can be born with a hiatal hernia (congenital), or it may develop over time. In almost all cases of hiatal hernia, only the top part of the stomach pushes through the diaphragm. Many people have a hiatal hernia with no symptoms. The larger the hernia, the more likely it is that you will have symptoms. In some cases, a hiatal hernia allows stomach acid to flow back into the tube that carries food from your mouth to your stomach (esophagus). This may cause heartburn symptoms. The development of heartburn symptoms may mean that you have a condition called gastroesophageal reflux disease (GERD). What are the causes? This condition is caused by a weakness in the opening (hiatus) where the esophagus passes through the diaphragm to attach to the upper part of the stomach. A person may be born with a weakness in thehiatus, or a weakness can develop over time. What increases the risk? This condition is more likely to develop in: Older people. Age is a major risk factor for a hiatal hernia, especially if you are over the age of50. women. People who are overweight. People who have frequent constipation. What are the signs or symptoms? Symptoms of this condition usually develop in the form of GERD symptoms. Symptoms include: Heartburn. Upset stomach (indigestion). Trouble swallowing. Coughing or wheezing. Wheezing is making high-pitched whistling sounds when you breathe. Sore throat. Chest pain. Nausea and vomiting. How is this diagnosed? This condition may be diagnosed during testing for GERD. Tests that may be done include: X-rays of your stomach or chest. An upper gastrointestinal (GI) series. This is an X-ray exam of your GI tract that is taken after you swallow a chalky liquid that shows up clearly on the X-ray. Endoscopy. This is a procedure to look into your stomach using a thin, flexible tube that has a tiny camera and light on the end of it. How is this treated? This condition may be treated by: Dietary and lifestyle changes to help reduce GERD symptoms. Medicines. These may include: ?Ftlg-fot-wgheyxu antacids. ?Medicines that make your stomach empty more quickly. ?Medicines that block the production of stomach acid (H2 blockers). ?Stronger medicines to reduce stomach acid (proton pump inhibitors). Surgery to repair the hernia, if other treatments are not helping. If you have no symptoms, you may not need treatment. Follow these instructions at home: Lifestyle and activity Do not use any products that contain nicotine or tobacco. These products include cigarettes, chewing tobacco, and vaping devices, such as e-cigarettes. If you need help quitting, ask your health careprovider. Try to achieve and maintain a healthy body weight. Avoid putting pressure on your abdomen. Anything that puts pressure on your abdomen increases the amount of acid that may be pushed up into your esophagus. ?Avoid bending over, especially after eating. ?Raise the head of your bed by putting blocks under the legs. This keeps your head and esophagus higher than your stomach. ?Do not wear tight clothing around your chest or stomach. ?Try not to strain when having a bowel movement, when urinating, or when lifting heavy objects. Eating and drinking Avoid foods that can worsen GERD symptoms. These may include: ?Fatty foods, like fried foods. ?[place] fruits, like oranges or lemon. ?Other foods and drinks that contain acid, like orange juice or tomatoes. ?Spicy food. ?Chocolate. Eat frequent small meals instead of three large meals a day. This helps prevent your stomach from getting too full. ?Eat slowly. ?Do not lie down right after eating. ?Do not eat 1 2 hours before bed. Do not drink beverages with caffeine. These include cola, coffee, cocoa, and tea. Do not drink alcohol. General instructions Take mqwy-sjx-gapqzra and prescription medicines only as told by your health care provider. Keep all follow-up visits. Your health care provider will want to check that any new prescribed medicines are helping your symptoms. Contact a health care provider if: Your symptoms are not controlled with medicines or lifestyle changes. You are having trouble swallowing. You have coughing or wheezing that will not go away. Your pain is getting worse. Your pain spreads to your arms, neck, jaw, teeth, or back. You feel nauseous or you vomit. Get help right away if: You have shortness of breath. You vomit blood. You have bright red blood in your stools. You have black, tarry stools. These symptoms may be an emergency. Get help right away. Call 911. Do not wait to see if the symptoms will go away. Do not drive yourself to the hospital. Summary A hiatal hernia occurs when part of the stomach slides above the muscle that separates the abdomen from the chest. A person may be born with a weakness in the hiatus, or a weakness can develop over time. Symptoms of a hiatal hernia may include heartburn, trouble swallowing, or sore throat. Management of a hiatal hernia includes eating frequent small meals instead of three large meals a day. Get help right away if you vomit blood, have bright red blood in your stools, or have black, tarry stools. This information is not intended to replace advice given to you by your health care provider. Make sure you discuss any questions you have with your health care provider. Document Revised: 06/22/2022 Document Reviewed: 06/22/2022 [employer] Patient Education 2022 [employer] 11/16/2023 13:16:09 Colonoscopy, Care After Surgery [facility] (CUSTOM) Colonoscopy Care After Surgery Please read the instructions outlined below and refer to this sheet in the next few weeks. These discharge instructions provide you with general information on caring for yourself after you leave thespital. Your doctor may also give you specific instructions. While your treatment has been planned according to the most current medical practices available, unavoidable complications occasionally occur. If you have any problems or questions after discharge, please call your doctor. ACTIVITY You may resume your regular activity, but move at a slower pace for the next 24 hours. Take frequent rest periods for the next 24 hours. Walking will help get rid of the air and reduce the bloated feeling in your abdomen (belly). No driving for 24 hours (because of the anesthesia (medicine) used during the test). You may shower. Do not sign any important legal documents or operate any machinery for 24 hours (because of the anesthesia used during the test). NUTRITION Drink plenty of fluids. You may resume your normal diet as instructed by your doctor. Begin with a light meal and progress to your normal diet. Heavy or fried foods are harder to digestand may make you feel nauseated (sick to your stomach). Avoid alcoholic beverages for 24 hours or as instructed. MEDICATIONS You may resume your normal medications unless your doctor tells you otherwise. WHAT YOU CAN EXPECT TODAY Some feelings of bloating in the abdomen. Passage of more gas than usual. Spotting of blood in your stool or on the toilet paper. FOLLOW-UP Your doctor will discuss the results of your test with you. SEEK IMMEDIATE MEDICAL ATTENTION IF: There is more than a spotting of blood in your stool. There is abdominal distention (your abdomen is swollen). There is vomiting. You have a temperature over 101.5 F. There is abdominal pain or discomfort that is severe or gets worse throughout the day. 11/16/2023 13:16:08 Hemorrhoids Hemorrhoids Hemorrhoids are swollen veins in and around the rectum or anus. There are two types of hemorrhoids: Internal hemorrhoids. These occur in the veins that are just inside the rectum. They may poke through to the outside and become irritated and painful. External hemorrhoids. These occur in the veins that are outside the anus and can be felt as a painful swelling or hard lump near the anus. Most hemorrhoids do not cause serious problems, and they can be managed with home treatments such as diet and lifestyle changes. If home treatments do not help the symptoms, procedures can be done toshrink or remove the hemorrhoids. What are the causes? This condition is caused by increased pressure in the anal area. This pressure may result from various things, including: Constipation. Straining to have a bowel movement. Diarrhea. . Obesity. Sitting for long periods of time. Heavy lifting or other activity that causes you to strain. Anal sex. Riding a bike for a long period of time. What are the signs or symptoms? Symptoms of this condition include: Pain. Anal itching or irritation. Rectal bleeding. Leakage of stool (feces). Anal swelling. One or more lumps around the anus. How is this diagnosed? This condition can often be diagnosed through a visual exam. Other exams or tests may also be done,such as: An exam that involves feeling the rectal area with a gloved hand (digital rectal exam). An exam of the anal canal that is done using a small tube (anoscope). A blood test, if you have lost a significant amount of blood. A test to look inside the colon using a flexible tube with a camera on the end (sigmoidoscopy or colonoscopy). How is this treated? This condition can usually be treated at home. However, various procedures may be done if dietary changes, lifestyle changes, and other home treatments do not help your symptoms. These procedures canhelp make the hemorrhoids smaller or remove them completely. Some of these procedures involve surgery, and others do not. Common procedures include: Rubber band ligation. Rubber bands are placed at the base of the hemorrhoids to cut off their bloodsupply. Sclerotherapy. Medicine is injected into the hemorrhoids to shrink them. Infrared coagulation. A type of light energy is used to get rid of the hemorrhoids. Hemorrhoidectomy surgery. The hemorrhoids are surgically removed, and the veins that supply them are tied off. Stapled hemorrhoidopexy surgery. The surgeon mala the base of the hemorrhoid to the rectal wall. Follow these instructions at home: Eating and drinking Eat foods that have a lot of fiber in them, such as whole grains, beans, nuts, fruits, and vegetables. Ask your health care provider about taking products that have added fiber (fiber supplements). Reduce the amount of fat in your diet. You can do this by eating low-fat dairy products, eating less red meat, and avoiding processed foods. Drink enough fluid to keep your urine pale yellow. Managing pain and swelling Take warm sitz baths for 20 minutes, 3 4 times a day to ease pain and discomfort. You may do this in a bathtub or using a portable sitz bath that fits over the toilet. If directed, apply ice to the affected area. Using ice packs between sitz baths may be helpful. ?Put ice in a plastic bag. ?Place a towel between your skin and the bag. ?Leave the ice on for 20 minutes, 2 3 times a day. General instructions Take yixt-yxy-nclvehu and prescription medicines only as told by your health care provider. Use medicated creams or suppositories as told. Get regular exercise. Ask your health care provider how much and what kind of exercise is best for you. In general, you should do moderate exercise for at least 30 minutes on most days of the week (150 minutes each week). This can include activities such as walking, biking, or yoga. Go to the bathroom when you have the urge to have a bowel movement. Do not wait. Avoid straining to have bowel movements. Keep the anal area dry and clean. Use wet toilet paper or moist towelettes after a bowel movement. Do not sit on the toilet for long periods of time. This increases blood pooling and pain. Keep all follow-up visits as told by your health care provider. This is important. Contact a health care provider if you have: Increasing pain and swelling that are not controlled by treatment or medicine. Difficulty having a bowel movement, or you are unable to have a bowel movement. Pain or inflammation outside the area of the hemorrhoids. Get help right away if you have: Uncontrolled bleeding from your rectum. Summary Hemorrhoids are swollen veins in and around the rectum or anus. Most hemorrhoids can be managed with home treatments such as diet and lifestyle changes. Taking warm sitz baths can help ease pain and discomfort. In severe cases, procedures or surgery can be done to shrink or remove the hemorrhoids. This information is not intended to replace advice given to you by your health care provider. Make sure you discuss any questions you have with your health care provider. Document Revised: 11/04/2021 Document Reviewed: 11/04/2021 [employer] Patient Education 2022 [employer] 11/16/2023 13:16:06 Colon Polyps Colon Polyps Colon polyps are tissue growths inside the colon, which is part of the large intestine. They are one of the types of polyps that can grow in the body. A polyp may be a round bump or a mushroom-shapedgrowth. You could have one polyp or more than one. Most colon polyps are noncancerous (benign). However, some colon polyps can become cancerous over time. Finding and removing the polyps early can help prevent this. What are the causes? The exact cause of colon polyps is not known. What increases the risk? The following factors may make you more likely to develop this condition: Having a family history of colorectal cancer or colon polyps. Being older than 45 years of age. Being younger than 45 years of age and having a significant family history of colorectal cancer or colon polyps or a genetic condition that puts you at higher risk of getting colon polyps. Having inflammatory bowel disease, such as ulcerative colitis or Crohn's disease. Having certain conditions passed from parent to child (hereditary conditions), such as: ?Familial adenomatous polyposis (FAP). ?Luis syndrome. ?Turcot syndrome. ?Peutz Jeghers syndrome. ?MUTYH-associated polyposis (MAP). Being overweight. Certain lifestyle factors. These include smoking cigarettes, drinking too much alcohol, not gettingenough exercise, and eating a diet that is high in fat and red meat and low in fiber. Having had childhood cancer that was treated with radiation of the abdomen. What are the signs or symptoms? Many times, there are no symptoms. If you have symptoms, they may include: Blood coming from the rectum during a bowel movement. Blood in the stool (feces). The blood may be bright red or very dark in color. Pain in the abdomen. A change in bowel habits, such as constipation or diarrhea. How is this diagnosed? This condition is diagnosed with a colonoscopy. This is a procedure in which a lighted, flexible scope is inserted into the opening between the buttocks (anus) and then passed into the colon to examine the area. Polyps are sometimes found when a colonoscopy is done as part of routine cancer screening tests. How is this treated? This condition is treated by removing any polyps that are found. Most polyps can be removed during a colonoscopy. Those polyps will then be tested for cancer. Additional treatment may be needed depending on the results of testing. Follow these instructions at home: Eating and drinking Eat foods that are high in fiber, such as fruits, vegetables, and whole grains. Eat foods that are high in calcium and vitamin D, such as milk, cheese, yogurt, eggs, liver, fish, and broccoli. Limit foods that are high in fat, such as fried foods and desserts. Limit the amount of red meat, precooked or cured meat, or other processed meat that you eat, such as hot dogs, sausages, moncada, or meat loaves. Limit sugary drinks. Lifestyle Maintain a healthy weight, or lose weight if recommended by your health care provider. Exercise every day or as told by your health care provider. Do not use any products that contain nicotine or tobacco, such as cigarettes, e- cigarettes, and chewing tobacco. If you need help quitting, ask your health care provider. Do not drink alcohol if: ?Your health care provider tells you not to drink. ?You are , may be , or are planning to become . If you drink alcohol: ?Limit how much you use to: ?0 1 drink a day for women. ?0 2 drinks a day for men. ?Know how much alcohol is in your drink. In the [place] one drink equals one 12 oz bottle of beer (355 mL), one 5 oz glass of wine (148 mL), or one 1 oz glass of hard liquor (44 mL). General instructions Take pzps-bll-zpxccil and prescription medicines only as told by your health care provider. Keep all follow-up visits. This is important. This includes having regularly scheduled colonoscopies. Talk to your health care provider about when you need a colonoscopy. Contact a health care provider if: You have new or worsening bleeding during a bowel movement. You have new or increased blood in your stool. You have a change in bowel habits. You lose weight for no known reason. Summary Colon polyps are tissue growths inside the colon, which is part of the large intestine. They are one type of polyp that can grow in the body. Most colon polyps are noncancerous (benign), but some can become cancerous over time. This condition is diagnosed with a colonoscopy. This condition is treated by removing any polyps that are found. Most polyps can be removed during a colonoscopy. This information is not intended to replace advice given to you by your health care provider. Make sure you discuss any questions you have with your health care provider. Document Revised: 08/13/2020 Document Reviewed: 08/13/2020 [employer] Patient Education 2022 [employer] Follow Up Care 06/16/2023 11:21:56 With:Sole WATKINS, YESENIA [place], [facility] Address: [address], [address] [place] [address]- [phone] When: Unknown Comments:will call for follow up [facility]07-10-2024 NotePatient Education - Text Colonoscopy Care After Surgery Please read the instructions outlined below and refer to this sheet in the next few weeks. These discharge instructions provide you with general information on caring for yourself after you leave thehospital. Your doctor may also give you specific instructions. While your treatment has been planned according to the most current medical practices available, unavoidable complications occasionally occur. If you have any problems or questions after discharge, please call your doctor. ACTIVITY You may resume your regular activity, but move at a slower pace for the next 24 hours. Take frequent rest periods for the next 24 hours. Walking will help get rid of the air and reduce the bloated feeling in your abdomen (belly). No driving for 24 hours (because of the anesthesia (medicine) used during the test). You may shower. Do not sign any important legal documents or operate any machinery for 24 hours (because of the anesthesia used during the test). NUTRITION Drink plenty of fluids. You may resume your normal diet as instructed by your doctor. Begin with a light meal and progress to your normal diet. Heavy or fried foods are harder to digestand may make you feel nauseated (sick to your stomach). Avoid alcoholic beverages for 24 hours or as instructed. MEDICATIONS You may resume your normal medications unless your doctor tells you otherwise. WHAT YOU CAN EXPECT TODAY Some feelings of bloating in the abdomen. Passage of more gas than usual. Spotting of blood in your stool or on the toilet paper. FOLLOW-UP Your doctor will discuss the results of your test with you. SEEK IMMEDIATE MEDICAL ATTENTION IF: There is more than a spotting of blood in your stool. There is abdominal distention (your abdomen is swollen). There is vomiting. You have a temperature over 101.5 F. There is abdominal pain or discomfort that is severe or gets worse throughout the day. Gastroenterology Upper Endoscopy, Adult, Care After After the procedure, it is common to have a sore throat. It is also common to have: ? Mild stomach pain or discomfort. ? Bloating. ? Nausea. Follow these instructions at home: The instructions below may help you care for yourself at home. Your health care provider may give you more instructions. If you have questions, ask your health care provider. ? If you were given a sedative during the procedure, it can affect you for several hours. Do not drive or operate machinery until your health care provider says that it is safe. ? If you will be going home right after the procedure, plan to have a responsible adult: ? Take you home from the hospital or clinic. You will not be allowed to drive. ? Care for you for the time you are told. ? Follow instructions from your health care provider about what you may eat and drink. ? Return to your normal activities as told by your health care provider. Ask your health care provider what activities are safe for you. ? Take tewb-wpb-auxtnvo and prescription medicines only as told by your health care provider. Contact a health care provider if you: ? Have a sore throat that lasts longer than one day. ? Have trouble swallowing. ? Have a fever. Get help right away if you: ? Vomit blood or your vomit looks like coffee grounds. ? Have bloody, black, or tarry stools. ? Have a very bad sore throat or you cannot swallow. ? Have difficulty breathing or very bad pain in your chest or abdomen. These symptoms may be an emergency. Get help right away. Call 911. ? Do not wait to see if the symptoms will go away. ? Do not drive yourself to the hospital. Summary ? After the procedure, it is common to have a sore throat, mild stomach discomfort, bloating, and nausea. ? If you were given a sedative during the procedure, it can affect you for several hours. Do not drive until your health care provider says that it is safe. ? Follow instructions from your health care provider about what you may eat and drink. ? Return to your normal activities as told by your health care provider. This information is not intended to replace advice given to you by your health care provider. Make sure you discuss any questions you have with your health care provider. Document Revised: 08/04/2022 Document Reviewed: 08/04/2022 [employer] Patient Education ? 2022 [employer] Hiatal Hernia A hiatal hernia occurs when part of the stomach slides above the muscle that separates the abdomen from the chest (diaphragm). A person can be born with a hiatal hernia (congenital), or it may develop over time. In almost all cases of hiatal hernia, only the top part of the stomach pushes through the diaphragm. Many people have a hiatal hernia with no symptoms. The larger the hernia, the more likely it is that you will have symptoms. In some cases, a hiatal hernia allows stomach acid to (more content not included)...[facility] 11-16-2023 NoteColonoscopy Procedure Report Patient: RYLEE ROPER Age: 58 years Sex: Female : 1965 Associated Diagnoses: None Author: Louise Whipple MD Pre-Procedure Procedure Date 11/16/2023 13:06:00 . Procedure Type: Colonoscopy with removal of tumor(s), polyp(s), or other lesion(s) by cold snare technique. Procedure provider Performed by Louise Whipple MD. Current history and physical Documented on chart. Colonoscopy ([id number]) on 09/15/2022 at 57 Years. Esophagogastroduodenoscopy ([id number]) on 09/15/2022 at 57 Years. hysteroscopy, dilation and curettage ablation on 05/01/2013 at 47 Years. d&c. Comments: 04/18/2013 12:46 MICHAEL Burt RN, [facility] x2 for misscarriage.. Past Medical History Active HTN (hypertension) ([id number]) Seasonal allergies ([id number]) Arthritis ([id number]) Anxiety ([id number]) Menorrhagia ([id number]) Resolved Dysphagia ([id number]): Resolved.. Family History Primary malignant neoplasm of colon Other Relationship Primary malignant neoplasm of female breast Mother . Procedure History Colonoscopy ([id number]) on 09/15/2022 at 57 Years. Esophagogastroduodenoscopy ([id number]) on 09/15/2022 at 57 Years. hysteroscopy, dilation and curettage ablation on 05/01/2013 at 47 Years. d&c. Comments: 04/18/2013 12:46 MICHAEL Burt RN, [facility] x2 for misscarriage.. Colorectal neoplasm risk assessment High risk Previous history of polyps. , MYH polyposis syndrome.. Informed Consent After discussing the rationale, risks and benefits, and alternatives to this procedure, the patient provided signed consent for the procedure. Pre-procedure diagnosis: History of colon polyps. Medications (Selected) Inpatient Medications Ordered Lactated Ringers IV Breann 1000 mL 1,000 mL: 1,000 mL, IV, 100 mL/hr, Routine, Start date 11/16/23 12:04:00 EDT, 10 hour(s), Total volume (mL): 1,000, 120.3 kg, 2.38, m2 Sodium Chloride 0.9% IV Breann 1000 mL 1,000 mL: 1,000 mL, IV, 20 mL/hr, Routine, Start date 11/16/23 6:46:00 EDT, 50 hour(s), Total volume (mL): 1,000 Prescriptions Prescribed Walker: Kuldeep, Instructions on use, dispense one unit, Print Requisition, Supply Documented Medications Documented Acidophilus Probiotic Blend: 1 cap(s), Oral, Daily, Refill(s) 0, Prophylaxis Jaz: 180 mg, Oral, Daily, Refills(s) 0, Allergy symptoms Celexa: 40 mg, Oral, Daily, Refills(s) 0, Anxiety Fiber Tabs: mg, Oral, QID, Refills(s) 0, Constipation Glucosamine Chondroitin: 1 tab, Oral, Daily, Refill(s) 0, Prophylaxis Metoprolol succinate 25 mg ER Tablet: 25 mg, Oral, Daily, Refills(s) 0, High blood pressure Synthroid: 25 microgram, Oral, Daily, Refills(s) 0, Thyroid Vitamin D: 50,000 International_Unit, Oral, qWeek, Refills(s) 0, Prophylaxis calcium (as calcium citrate) 200 mg oral tablet: 950 mg = 1 tab(s), Oral, Daily, Refills(s) 0, Prophylaxis lisinopril: 10 mg, Oral, Daily, Refills(s) 0, High blood pressure magnesium oxide 250 mg oral tablet: 500 mg = 2 tab(s), Oral, Daily, Refills(s) 0, Prophylaxis meloxicam 15 mg Tab: 15 mg = 1 tab(s), Oral, Daily, Refills(s) 0 montelukast: 10 mg, Oral, Daily, Refills(s) 0, Allergy symptoms Anticoagulant/antiplatelet None. ASA Classification: Class II. . Monitoring: See anesthesia record. . Procedure The procedure was performed in the hospital. See anesthesia record for sedation given during procedure. The patient was positioned starting in the left lateral decubitus position. Endoscope type usedwas an adult-size. The endoscope was lubricated then introduced through the anus. The scope was advanced to the cecum. No difficulties encountered during the procedure. The bowel preparation quality was good and was adequate (see polyps greater than or equal to 6 millimeters). The patient toleratedthe procedure well. Time to Cecum: 23 min Withdrawal time 5 min Last colonoscopy: Last year Findings 1. Normal rectal exam 2. Five mm sessile polyps x 3 seen in the descending colon resected with cold snare completely 3. Extremely redundant colon with excessive loop formation requiring repositioning the patient on the back and pressing on the sigmoid colon 4. Large internal hemorrhoids Images Procedure images: Rec_hd_video___[id number].jpg Rec_hd_video___[id number].jpg Rec1_hd_video___[id number].jpg Rec1_hd_video___[id number].jpg Rec_hd_video___[id number].jpg Rec1_hd_video___[id number].jpg . Post-Procedure Complications: none. Estimated blood loss: Minimal. Specimens: sent (more content not included)...[facility]Other Comment: Missing Attachment - attachment storage system not supported [id number] Can be viewed in source system Missing Attachment - attachment storage system not supported [id number] Can be viewed in source systemMissing Attachment - attachment storage system not supported [id number] Can be viewed in source systemMissing Attachment - attachment storage system not supported [id number] Can be viewed in source systemMissing Attachment - attachment storage system not supported [id number] Can be viewed in source systemMissing Attachment - attachment storage system not supported [id number] Can be viewed in source [id number] Hospital Discharge instructions Patient Education 06/16/2023 10:43:18 Colon Polyps Colon Polyps Colon polyps are tissue growths inside the colon, which is part of the large intestine. They are one of the types of polyps that can grow in the body. A polyp may be a round bump or a mushroom-shapedgrowth. You could have one polyp or more than one. Most colon polyps are noncancerous (benign). However, some colon polyps can become cancerous over time. Finding and removing the polyps early can help prevent this. What are the causes? The exact cause of colon polyps is not known. What increases the risk? The following factors may make you more likely to develop this condition: Having a family history of colorectal cancer or colon polyps. Being older than 45 years of age. Being younger than 45 years of age and having a significant family history of colorectal cancer or colon polyps or a genetic condition that puts you at higher risk of getting colon polyps. Having inflammatory bowel disease, such as ulcerative colitis or Crohn's disease. Having certain conditions passed from parent to child (hereditary conditions), such as: ?Familial adenomatous polyposis (FAP). ?Luis syndrome. ?Turcot syndrome. ?Peutz Jeghers syndrome. ?MUTYH-associated polyposis (MAP). Being overweight. Certain lifestyle factors. These include smoking cigarettes, drinking too much alcohol, not gettingenough exercise, and eating a diet that is high in fat and red meat and low in fiber. Having had childhood cancer that was treated with radiation of the abdomen. What are the signs or symptoms? Many times, there are no symptoms. If you have symptoms, they may include: Blood coming from the rectum during a bowel movement. Blood in the stool (feces). The blood may be bright red or very dark in color. Pain in the abdomen. A change in bowel habits, such as constipation or diarrhea. How is this diagnosed? This condition is diagnosed with a colonoscopy. This is a procedure in which a lighted, flexible scope is inserted into the opening between the buttocks (anus) and then passed into the colon to examine the area. Polyps are sometimes found when a colonoscopy is done as part of routine cancer screening tests. How is this treated? This condition is treated by removing any polyps that are found. Most polyps can be removed during a colonoscopy. Those polyps will then be tested for cancer. Additional treatment may be needed depending on the results of testing. Follow these instructions at home: Eating and drinking Eat foods that are high in fiber, such as fruits, vegetables, and whole grains. Eat foods that are high in calcium and vitamin D, such as milk, cheese, yogurt, eggs, liver, fish, and broccoli. Limit foods that are high in fat, such as fried foods and desserts. Limit the amount of red meat, precooked or cured meat, or other processed meat that you eat, such as hot dogs, sausages, moncada, or meat loaves. Limit sugary drinks. Lifestyle Maintain a healthy weight, or lose weight if recommended by your health care provider. Exercise every day or as told by your health care provider. Do not use any products that contain nicotine or tobacco, such as cigarettes, e- cigarettes, and chewing tobacco. If you need help quitting, ask your health care provider. Do not drink alcohol if: ?Your health care provider tells you not to drink. ?You are , may be , or are planning to become . If you drink alcohol: ?Limit how much you use to: ?0 1 drink a day for women. ?0 2 drinks a day for men. ?Know how much alcohol is in your drink. In the [place] one drink equals one 12 oz bottle of beer (355 mL), one 5 oz glass of wine (148 mL), or one 1 oz glass of hard liquor (44 mL). General instructions Take svmw-jsp-nyjhrpg and prescription medicines only as told by your health care provider. Keep all follow-up visits. This is important. This includes having regularly scheduled colonoscopies. Talk to your health care provider about when you need a colonoscopy. Contact a health care provider if: You have new or worsening bleeding during a bowel movement. You have new or increased blood in your stool. You have a change in bowel habits. You lose weight for no known reason. Summary Colon polyps are tissue growths inside the colon, which is part of the large intestine. They are one type of polyp that can grow in the body. Most colon polyps are noncancerous (benign), but some can become cancerous over time. This condition is diagnosed with a colonoscopy. This condition is treated by removing any polyps that are found. Most polyps can be removed during a colonoscopy. This information is not intended to replace advice given to you by your health care provider. Make sure you discuss any questions you have with your health care provider. Document Revised: 08/13/2020 Document Reviewed: 08/13/2020 [employer] Patient Education 2022 [employer]. Follow Up Care 12/14/2022 11:27:05 With:Susie Porter CNP Address: When:1 to 2 weeks Comments:Following EGD/Colonoscopy. [facility] 08-08-2023 Hospital Discharge instructions Patient Education 12/14/2022 10:31:08 Colon Polyps Colon Polyps Colon polyps are tissue growths inside the colon, which is part of the large intestine. They are one of the types of polyps that can grow in the body. A polyp may be a round bump or a mushroom-shapedgrowth. You could have one polyp or more than one. Most colon polyps are noncancerous (benign). However, some colon polyps can become cancerous over time. Finding and removing the polyps early can help prevent this. What are the causes? The exact cause of colon polyps is not known. What increases the risk? The following factors may make you more likely to develop this condition: Having a family history of colorectal cancer or colon polyps. Being older than 45 years of age. Being younger than 45 years of age and having a significant family history of colorectal cancer or colon polyps or a genetic condition that puts you at higher risk of getting colon polyps. Having inflammatory bowel disease, such as ulcerative colitis or Crohn's disease. Having certain conditions passed from parent to child (hereditary conditions), such as: ?Familial adenomatous polyposis (FAP). ?Luis syndrome. ?Turcot syndrome. ?Peutz Jeghers syndrome. ?MUTYH-associated polyposis (MAP). Being overweight. Certain lifestyle factors. These include smoking cigarettes, drinking too much alcohol, not gettingenough exercise, and eating a diet that is high in fat and red meat and low in fiber. Having had childhood cancer that was treated with radiation of the abdomen. What are the signs or symptoms? Many times, there are no symptoms. If you have symptoms, they may include: Blood coming from the rectum during a bowel movement. Blood in the stool (feces). The blood may be bright red or very dark in color. Pain in the abdomen. A change in bowel habits, such as constipation or diarrhea. How is this diagnosed? This condition is diagnosed with a colonoscopy. This is a procedure in which a lighted, flexible scope is inserted into the opening between the buttocks (anus) and then passed into the colon to examine the area. Polyps are sometimes found when a colonoscopy is done as part of routine cancer screening tests. How is this treated? This condition is treated by removing any polyps that are found. Most polyps can be removed during a colonoscopy. Those polyps will then be tested for cancer. Additional treatment may be needed depending on the results of testing. Follow these instructions at home: Eating and drinking Eat foods that are high in fiber, such as fruits, vegetables, and whole grains. Eat foods that are high in calcium and vitamin D, such as milk, cheese, yogurt, eggs, liver, fish, and broccoli. Limit foods that are high in fat, such as fried foods and desserts. Limit the amount of red meat, precooked or cured meat, or other processed meat that you eat, such as hot dogs, sausages, moncada, or meat loaves. Limit sugary drinks. Lifestyle Maintain a healthy weight, or lose weight if recommended by your health care provider. Exercise every day or as told by your health care provider. Do not use any products that contain nicotine or tobacco, such as cigarettes, e- cigarettes, and chewing tobacco. If you need help quitting, ask your health care provider. Do not drink alcohol if: ?Your health care provider tells you not to drink. ?You are , may be , or are planning to become . If you drink alcohol: ?Limit how much you use to: ?0 1 drink a day for women. ?0 2 drinks a day for men. ?Know how much alcohol is in your drink. In the [place] one drink equals one 12 oz bottle of beer (355 mL), one 5 oz glass of wine (148 mL), or one 1 oz glass of hard liquor (44 mL). General instructions Take cmtf-rao-gvnokzr and prescription medicines only as told by your health care provider. Keep all follow-up visits. This is important. This includes having regularly scheduled colonoscopies. Talk to your health care provider about when you need a colonoscopy. Contact a health care provider if: You have new or worsening bleeding during a bowel movement. You have new or increased blood in your stool. You have a change in bowel habits. You lose weight for no known reason. Summary Colon polyps are tissue growths inside the colon, which is part of the large intestine. They are one type of polyp that can grow in the body. Most colon polyps are noncancerous (benign), but some can become cancerous over time. This condition is diagnosed with a colonoscopy. This condition is treated by removing any polyps that are found. Most polyps can be removed during a colonoscopy. This information is not intended to replace advice given to you by your health care provider. Make sure you discuss any questions you have with your health care provider. Document Revised: 08/13/2020 Document Reviewed: 08/13/2020 [employer] Patient Education 2022 [employer] Follow Up Care 09/28/2022 10:35:59 With:Susie Porter CNP Address: When:6 months [facility] 05-10-2023 Hospital Discharge instructions Patient Education 09/15/2022 14:26:41 Colonoscopy, Care After Surgery Salam (CUSTOM) Colonoscopy Care After Surgery Please read the instructions outlined below and refer to this sheet in the next few weeks. These discharge instructions provide you with general information [facility] Your doctor may also give you specific instructions. While your treatment has been planned according to the most current medical practices available, unavoidable complications occasionally occur. If you have any problems or questions after discharge, please call your doctor. ACTIVITY You may resume your regular activity, but move at a slower pace for the next 24 hours. Take frequent rest periods for the next 24 hours. Walking will help get rid of the air and reduce the bloated feeling in your abdomen (belly). No driving for 24 hours (because of the anesthesia (medicine) used during the test). You may shower. Do not sign any important legal documents or operate any machinery for 24 hours (because of the anesthesia used during the test). NUTRITION Drink plenty of fluids. You may resume your normal diet as instructed by your doctor. Begin with a light meal and progress to your normal diet. Heavy or fried foods are harder to digestand may make you feel nauseated (sick to your stomach). Avoid alcoholic beverages for 24 hours or as instructed. MEDICATIONS You may resume your normal medications unless your doctor tells you otherwise. WHAT YOU CAN EXPECT TODAY Some feelings of bloating in the abdomen. Passage of more gas than usual. Spotting of blood in your stool or on the toilet paper. FOLLOW-UP Your doctor will discuss the results of your test with you. SEEK IMMEDIATE MEDICAL ATTENTION IF: There is more than a spotting of blood in your stool. There is abdominal distention (your abdomen is swollen). There is vomiting. You have a temperature over 101.5 F. There is abdominal pain or discomfort that is severe or gets worse throughout the day. 09/15/2022 14:26:37 Hemorrhoids, Wqbw-ec-Jjpv Hemorrhoids Hemorrhoids are swollen veins that may develop: In the butt (rectum). These are called internal hemorrhoids. Around the opening of the butt (anus). These are called external hemorrhoids. Hemorrhoids can cause pain, itching, or bleeding. Most of the time, they do not cause serious problems. They usually get better with diet changes, lifestyle changes, and other home treatments. What are the causes? This condition may be caused by: Having trouble pooping (constipation). Pushing hard (straining) to poop. Watery poop (diarrhea). . Being very overweight (obese). Sitting for long periods of time. Heavy lifting or other activity that causes you to strain. Anal sex. Riding a bike for a long period of time. What are the signs or symptoms? Symptoms of this condition include: Pain. Itching or soreness in the butt. Bleeding from the butt. Leaking poop. Swelling in the area. One or more lumps around the opening of your butt. How is this diagnosed? A doctor can often diagnose this condition by looking at the affected area. The doctor may also: Do an exam that involves feeling the area with a gloved hand (digital rectal exam). Examine the area inside your butt using a small tube (anoscope). Order blood tests. This may be done if you have lost a lot of blood. Have you get a test that involves looking inside the colon using a flexible tube with a camera on the end (sigmoidoscopy or colonoscopy). How is this treated? This condition can usually be treated at home. Your doctor may tell you to change what you eat, make lifestyle changes, or try home treatments. If these do not help, procedures can be done to remove the hemorrhoids or make them smaller. These may involve: Placing rubber bands at the base of the hemorrhoids to cut off their blood supply. Injecting medicine into the hemorrhoids to shrink them. Shining a type of light energy onto the hemorrhoids to cause them to fall off. Doing surgery to remove the hemorrhoids or cut off their blood supply. Follow these instructions at home: Eating and drinking Eat foods that have a lot of fiber in them. These include whole grains, beans, nuts, fruits, and vegetables. Ask your doctor about taking products that have added fiber (fibersupplements). Reduce the amount of fat in your diet. You can do this by: ?Eating low-fat dairy products. ?Eating less red meat. ?Avoiding processed foods. Drink enough fluid to keep your pee (urine) pale yellow. Managing pain and swelling Take a warm-water bath (sitz bath) for 20 minutes to ease pain. Do this 3 4 times a day. You may dothis in a bathtub or using a portable sitz bath that fits over the toilet. If told, put ice on the painful area. It may be helpful to use ice between your warm baths. ?Put ice in a plastic bag. ?Place a towel between your skin and the bag. ?Leave the ice on for 20 minutes, 2 3 times a day. General instructions Take acqu-rob-fnrgmep and prescription medicines only as told by your doctor. ?Medicated creams and medicines may be used as told. Exercise often. Ask your doctor how much and what kind of exercise is best for you. Go to the bathroom when you have the urge to poop. Do not wait. Avoid pushing too hard when you poop. Keep your butt dry and clean. Use wet toilet paper or moist towelettes after pooping. Do not sit on the toilet for a long time. Keep all follow-up visits as told by your doctor. This is important. Contact a doctor if you: Have pain and swelling that do not get better with treatment or medicine. Have trouble pooping. Cannot poop. Have pain or swelling outside the area of the hemorrhoids. Get help right away if you have: Bleeding that will not stop. Summary Hemorrhoids are swollen veins in the butt or around the opening of the butt. They can cause pain, itching, or bleeding. Eat foods that have a lot of fiber in them. These include whole grains, beans, nuts, fruits, and vegetables. Take a warm-water bath (sitz bath) for 20 minutes to ease pain. Do this 3 4 times a day. This information is not intended to replace advice given to you by your health care provider. Make sure you discuss any questions you have with your health care provider. Document Revised: 11/04/2021 Document Reviewed: 11/04/2021 [employer] Patient Education 2022 [employer] 09/15/2022 14:26:33 Colon Polyps Colon Polyps Colon polyps are tissue growths inside the colon, which is part of the large intestine. They are one of the types of polyps that can grow in the body. A polyp may be a round bump or a mushroom-shapedgrowth. You could have one polyp or more than one. Most colon polyps are noncancerous (benign). However, some colon polyps can become cancerous over time. Finding and removing the polyps early can help prevent this. What are the causes? The exact cause of colon polyps is not known. What increases the risk? The following factors may make you more likely to develop this condition: Having a family history of colorectal cancer or colon polyps. Being older than 45 years of age. Being younger than 45 years of age and having a significant family history of colorectal cancer or colon polyps or a genetic condition that puts you at higher risk of getting colon polyps. Having inflammatory bowel disease, such as ulcerative colitis or Crohn's disease. Having certain conditions passed from parent to child (hereditary conditions), such as: ?Familial adenomatous polyposis (FAP). ?Luis syndrome. ?Turcot syndrome. ?Peutz Jeghers syndrome. ?MUTYH-associated polyposis (MAP). Being overweight. Certain lifestyle factors. These include smoking cigarettes, drinking too much alcohol, not gettingenough exercise, and eating a diet that is high in fat and red meat and low in fiber. Having had childhood cancer that was treated with radiation of the abdomen. What are the signs or symptoms? Many times, there are no symptoms. If you have symptoms, they may include: Blood coming from the rectum during a bowel movement. Blood in the stool (feces). The blood may be bright red or very dark in color. Pain in the abdomen. A change in bowel habits, such as constipation or diarrhea. How is this diagnosed? This condition is diagnosed with a colonoscopy. This is a procedure in which a lighted, flexible scope is inserted into the opening between the buttocks (anus) and then passed into the colon to examine the area. Polyps are sometimes found when a colonoscopy is done as part of routine cancer screening tests. How is this treated? This condition is treated by removing any polyps that are found. Most polyps can be removed during a colonoscopy. Those polyps will then be tested for cancer. Additional treatment may be needed depending on the results of testing. Follow these instructions at home: Eating and drinking Eat foods that are high in fiber, such as fruits, vegetables, and whole grains. Eat foods that are high in calcium and vitamin D, such as milk, cheese, yogurt, eggs, liver, fish, and broccoli. Limit foods that are high in fat, such as fried foods and desserts. Limit the amount of red meat, precooked or cured meat, or other processed meat that you eat, such as hot dogs, sausages, moncada, or meat loaves. Limit sugary drinks. Lifestyle Maintain a healthy weight, or lose weight if recommended by your health care provider. Exercise every day or as told by your health care provider. Do not use any products that contain nicotine or tobacco, such as cigarettes, e- cigarettes, and chewing tobacco. If you need help quitting, ask your health care provider. Do not drink alcohol if: ?Your health care provider tells you not to drink. ?You are , may be , or are planning to become . If you drink alcohol: ?Limit how much you use to: ?0 1 drink a day for women. ?0 2 drinks a day for men. ?Know how much alcohol is in your drink. In the [place] one drink equals one 12 oz bottle of beer (355 mL), one 5 oz glass of wine (148 mL), or one 1 oz glass of hard liquor (44 mL). General instructions Take roml-xms-icpiwoy and prescription medicines only as told by your health care provider. Keep all follow-up visits. This is important. This includes having regularly scheduled colonoscopies. Talk to your health care provider about when you need a colonoscopy. Contact a health care provider if: You have new or worsening bleeding during a bowel movement. You have new or increased blood in your stool. You have a change in bowel habits. You lose weight for no known reason. Summary Colon polyps are tissue growths inside the colon, which is part of the large intestine. They are one type of polyp that can grow in the body. Most colon polyps are noncancerous (benign), but some can become cancerous over time. This condition is diagnosed with a colonoscopy. This condition is treated by removing any polyps that are found. Most polyps can be removed during a colonoscopy. This information is not intended to replace advice given to you by your health care provider. Make sure you discuss any questions you have with your health care provider. Document Revised: 08/13/2020 Document Reviewed: 08/13/2020 [employer] Patient Education 2022 [employer]. 09/15/2022 14:26:31 Endoscopy, Care After Procedure [facility] [facility]) Endoscopy Care After Procedure Please read the instructions outlined below and refer to this sheet in the next few weeks. These discharge instructions provide you with general information on caring [facility] Your doctor may also give you specific instructions. While your treatment has been planned according to the most current medical practices available, unavoidable complications occasionally occur. If you have any problems or questions after discharge, please call your doctor. ACTIVITY You may resume your regular activity but move at a slower pace for the next 24 hours. Take frequent rest periods for the next 24 hours. Walking will help expel (get rid of) the air and reduce the bloated feeling in your abdomen. No driving for 24 hours (because of the anesthesia (medicine) used during the test). You may shower. Do not sign any important legal documents or operate any machinery for 24 hours (because of the anesthesia used during the test). NUTRITION Drink plenty of fluids. You may resume your normal diet. Begin with a light meal and progress to your normal diet. Avoid alcoholic beverages for 24 hours or as instructed by your caregiver. MEDICATIONS You may resume your normal medications unless your caregiver tells you otherwise. WHAT YOU CAN EXPECT TODAY You may experience abdominal discomfort such as a feeling of fullness or gas pains. FOLLOW-UP Your doctor will discuss the results of your test with you. SEEK IMMEDIATE MEDICAL ATTENTION IF ANY OF THE FOLLOWING OCCUR: Excessive nausea (feeling sick to your stomach) and/or vomiting. Severe abdominal pain and distention (swelling). Trouble swallowing. Temperature over 100 F (37.8 C). Rectal bleeding or vomiting of blood. Document Released: 12/07/2004 Document Re-Released: 10/17/2006 ExitCare Patient Information 2009 [employer]. Follow Up Care 07/19/2022 15:08:11 With:ASA WATKINS, YESENIA Lemon, [facility] Address: [address] [place] [address]. [address] [place] [address] When: Unknown Comments:Office will call to schedule follow up appointment [facility]05-10-2023 Evaluation + Plan noteExtracted from: Title:CSB post op Author:Dorian WATKINS, Kevin Helm Date:09/15/22 Plan Transfer/Discharge: Transfer/Discharge Discharge when meets criteria ( To home ). Extracted from: Title:ANES Pre-operative Note 2022 Author:Harsh Arellano Jr, DO Date:09/15/22 Plan [employer] Anesthesiologists (ASA) physical status classification: Class III. Anesthetic Preoperative Plan: Anesthesia General. [facility]05-03-2023 Hospital Discharge instructions Patient Education 09/08/2022 21:20:47 RICE Therapy for Routine Care of Injuries RICE Therapy for Routine Care of Injuries The routine care of many injuries includes rest, ice, compression, and elevation (RICE therapy). RICE therapy is often recommended for injuries to soft tissues, such as muscle strain, sprains, bruises, and overuse injuries. It can also be used for some bone injuries. Using RICE therapy can help to relieve pain and lessen swelling. Supplies needed: Ice. Plastic bag. Towel. Elastic bandage. Pillow or pillows to raise (elevate) the injured body part. How to care for your injury with RICE therapy Rest Rest your injury. This may help with the healing process. Rest usually involves limiting your normal activities and not using the injured part of your body. Generally, you can return to your normal activities when your health care provider says it is okay and you can do them without much discomfort. If you rest the injury too much, it may not heal as well. Some injuries heal better with early movement instead of resting for too long. Talk with your health care provider about how you should limityour activities and whether you should start ackhu-pc-qeciyw exercises for your injury. Ice Ice your injury to lessen swelling and pain. Do not apply ice directly to your skin. Put ice in a plastic bag. Place a towel between your skin and the bag. Leave the ice on for 20 minutes, 2 3 times a day. Use ice on as many days as told by your health care provider. Compression Put pressure (compression) on your injured area to control swelling, give support, and help with discomfort. Compression may be done with an elastic bandage. If an elastic bandage has been applied, follow these general tips: Use the bandage as directed by the maker of the bandage that you are using. Do not wrap the bandage too tightly. That may block (cut off) circulation in the arm or leg in the area below the bandage. ?If part of your body beyond the bandage becomes blue, numb, cold, swollen, or more painful, your bandage is probably too tight. If this occurs, remove your bandage and reapply it more loosely. Remove and reapply the bandage every 3 4 hours or as told by your health care provider. See your health care provider if the bandage seems to be making your problems worse rather than better. Elevation Elevate your injured area to lessen swelling and pain. If possible, elevate your injured area at orabove the level of your heart or the center of your chest. Contact a health care provider if: Your pain and swelling continue. Your symptoms are getting worse rather than improving. Having these problems may mean that you need further evaluation or imaging tests, such as X-rays cathy MRI. Sometimes, X-rays may not show a small broken bone (fracture) until days after the injury happened. Make a follow-up appointment with your health care provider. Ask your health care provider,or the department that is doing the imaging test, when your results will be ready. Get help right away if: You have sudden severe pain at or below the area of your injury. You have redness or increased swelling around your injury. You have tingling or numbness at or below the area of your injury and it does not improve after youremove the elastic bandage. Summary The routine care of many injuries includes rest, ice, compression, and elevation (RICE therapy). Using RICE therapy can help to relieve pain and lessen swelling. RICE therapy is often recommended for injuries to soft tissues, such as muscle strain, sprains, bruises, and overuse injuries. It can also be used for some bone injuries. Seek medical care if your pain and swelling continue or if your symptoms are getting worse rather than improving. This information is not intended to replace advice given to you by your health care provider. Make sure you discuss any questions you have with your health care provider. Document Revised: 06/30/2020 Document Reviewed: 01/13/2018 [employer] Patient Education 2020 [employer]. 09/08/2022 21:20:47 Acute Knee Pain, Adult Acute Knee Pain, Adult Acute knee pain is sudden and may be caused by damage, swelling, or irritation of the muscles and tissues that support the knee. Pain may result from: A fall. An injury to the knee from twisting motions. A hit to the knee. Infection. Acute knee pain may go away on its own with time and rest. If it does not, your health care provider may order tests to find the cause of the pain. These may include: Imaging tests, such as an X-ray, MRI, CT scan, or ultrasound. Joint aspiration. In this test, fluid is removed from the knee and evaluated. Arthroscopy. In this test, a lighted tube is inserted into the knee and an image is projected onto a TV screen. Biopsy. In this test, a sample of tissue is removed from the body and studied under a microscope. Follow these instructions at home: If you have a knee sleeve or brace: Wear the knee sleeve or brace as told by your health care provider. Remove it only as told by your health care provider. Loosen it if your toes tingle, become numb, or turn cold and blue. Keep it clean. If the knee sleeve or brace is not waterproof: ?Do not let it get wet. ?Cover it with a watertight covering when you take a bath or shower. Activity Rest your knee. Do not do things that cause pain or make pain worse. Avoid high-impact activities or exercises, such as running, jumping rope, or doing jumping jacks. Work with a physical therapist to make a safe exercise program, as recommended by your health care provider. Do exercises as told by your physical therapist. Managing pain, stiffness, and swelling If directed, put ice on the affected knee. To do this: ?If you have a removable knee sleeve or brace, remove it as told by your health care provider. ?Put ice in a plastic bag. ?Place a towel between your skin and the bag. ?Leave the ice on for 20 minutes, 2 3 times a day. ?Remove the ice if your skin turns bright red. This is very important. If you cannot feel pain, heat, or cold, you have a greater risk of damage to the area. If directed, use an elastic bandage to put pressure (compression) on your injured knee. This may control swelling, give support, and help with discomfort. Raise (elevate) your knee above the level of your heart while you are sitting or lying down. Sleep with a pillow under your knee. General instructions Take meea-rzm-xuhufhw and prescription medicines only as told by your health care provider. Do not use any products that contain nicotine or tobacco, such as cigarettes, e- cigarettes, and chewing tobacco. If you need help quitting, ask your health care provider. If you are overweight, work with your health care provider and a dietitian to set a weight-loss goal that is healthy and reasonable for you. Extra weight can put pressure on your knee. Pay attention to any changes in your symptoms. Keep all follow-up visits. This is important. Contact a health care provider if: Your knee pain continues, changes, or gets worse. You have a fever along with knee pain. Your knee feels warm to the touch or is red. Your knee leonardo or locks up. Get help right away if: Your knee swells, and the swelling becomes worse. You cannot move your knee. You have severe pain in your knee that cannot be managed with pain medicine. Summary Acute knee pain can be caused by a fall, an injury, an infection, or damage, swelling, or irritation of the tissues that support your knee. Your health care provider may perform tests to find out the cause of the pain. Pay attention to any changes in your symptoms. Relieve your pain with rest, medicines, light activity, and the use of ice. Get help right away if your knee swells, you cannot move your knee, or you have severe pain that cannot be managed with medicine. This information is not intended to replace advice given to you by your health care provider. Make sure you discuss any questions you have with your health care provider. Document Revised: 10/08/2020 Document Reviewed: 10/08/2020 [employer] Patient Education 2022 [employer]. Follow Up Care 09/08/2022 20:33:07 With:Olga Brian Address: [address] [place] [address]- Business (1) When:09/11/2022 21:20:18 Comments:Follow-up with orthopedic surgery for evaluation of 2 weeks of knee pain With:Mike Peralta Address: [address] [facility] [place] [address] Business (1) When:Within 3 Day(s) [facility]05-03-2023 Evaluation + Plan noteExtracted from: Title:ED Note Author:Endy GREEN, Huang Perez Ori e:09/08/22 Knee pain (M25.569: Pain in unspecified knee) Orders: ketorolac, 60 mg = 2 mL, Injection, IntraMuscular, Once, Stop date 09/08/22 21:17:00 EDT, STAT, Start date 09/08/22 21:17:00 EDT, 09/08/22 21:17:00 EDT predniSONE, 60 mg = 3 tab(s), Oral, Daily, X 5 day(s), # 15 tab(s), Refills(s) 0, Pharmacy: [facility], 170, cm, 09/08/22 20:53:00 EDT, Height/Length Dosing, 114.7, kg, 09/08/22 20:53:00 EDT, Weight Dosing Future Appointments Appointment Date:09/15/2022 01:45:00 PM Scheduled Provider: Location:[facility] Future Appointments Appointment Date:04/05/2022 11:00:00 AM Scheduled Provider: Location:[facility] Appointment Type:Surgery PAT COVID Testing Appointment Date:04/12/2022 02:30:00 PM Scheduled Provider: Location:[facility] Appointment Type:Surgery [facility] Evaluation + Plan note Future Appointments Appointment Date:09/15/2022 01:45:00 PM Scheduled Provider: Location:[facility] Future Appointments Appointment Date:12/14/2022 10:40:00 AM Scheduled Provider:Susie Porter CNP Location:[facility] Appointment Type:[facility] Future Appointments Appointment Date:06/16/2023 10:40:00 AM Scheduled Provider:Susie Porter CNP Location:[facility] Appointment Type:[facility] Follow Up [facility] Evaluation + Plan note Future Appointments Appointment Date:06/30/2023 02:15:00 PM Scheduled Provider: Location:.MAMMOGRAM Appointment Type:MA Screen () Appointment Date:06/30/2023 02:30:00 PM Scheduled Provider: Location:.BD Appointment Type:BD Bone Density () Appointment Date:11/16/2023 12:15:00 PM Scheduled Provider: Location:[facility] Appointment Type:Surgery FT Future Scheduled Tests Radiology* BD Bone Density DEXA 06/30/23 * MA Mamm Screen w/CAD if perf and 3D Randall 06/30/23 [facility] Evaluation + Plan note Future Appointments Appointment Date:11/16/2023 12:15:00 PM Scheduled Provider: Location:[facility] Diagnosis Onset Date Resolution Status Admit Date GERD (gastroesophageal reflu x disease) acute October 17, 2024 9:48am Monoallelic mutation of MUTY H gene acute October 17, 2024 9:48am [facility] Work Phone: Hospital course Narrative No data available for this section [facility] Hospital Discharge instructions No data available for this section [facility] Progress note No data available for this section [facility] Progryoj note Author Jayashree Deleon [facility] Note Date/Time October 17, 2024 10:4 1am [facility] [address] [facility] [facility] [place] [address] OFFICE VISIT Date of Service: 10/17/24 MR#: [id number] Acct: [id number] Name: RYLEE ROPER Rep #: [id number] : 1965 Provider: LOAN Deleon Age/Sex: 59/F Location: [facility] Status: Signed Intake Vital Signs 04/19/24 13:35 05/16/24 13:41 Height 5 ft 4 in 5 ft 4 in Weight: 256 lb BMI 43.9 BP 120/78 Blood Pressure Location Lt brachial Position Sitting Respiration 16 Pulse 68 Pulse Source Monitor Temp 97.6 F L Temp Source Temporal Pulse Oximetry (%) 97 Oxygen Delivery Method room air Intake Visit Reasons: Pre colon Chief Complaint: est care [employer]stabout Crew Required: No Accompanied by: Self Is patient in pain?: No Allergies cefdinir (From Drive [employer]) Allergy (Mild, Verified 10/17/24 10:08) unknown Medications ?Medication ?Instructions ?Recorded ?Confirmed ?Type calcium carbonate 600 mg PO QDAY 04/19/2410/07 History drmtcjffizi-nkw-yczrixawx-hrb tab PO 04/19/24 10/17/24 History 149-hyalur 500 mg-500 mg-66.7 mg tablet (Mtwliwidllp-Rybsivbziwh-EAO (with antiox)) montelukast 10 mg tablet 10 mg PO QDAY 04/19/2410/17 History citalopram 20 mg tablet (Celexa) 40 mg PO QDAY 5 10/17/24 History lisinopril 10 mg tablet 10 mg PO QDAY #90 tabs 05/2210/17/24 Rx metoprolol succinate 50 mg 50 mg PO QDAY #90 tabs 05/0910/17/24 Rx tablet,extended release 24 hr fexofenadine 60 mg tablet (Jaz 180 mg PO QDAY 10/0710/17/24 History Allergy) levothyroxine 50 mcg tablet 25 mcg PO QDAY 10/17/24 History (Synthroid) magnesium 250 mg tablet 400 mg PO QDAY 10/17/2410/07 History meloxicam 15 mg tablet 15 mg PO QDAY PRN 10/17/24 0 10/17/24 History Nurse's Note: Has been choking on water again and has history of Schatzki ring. Gets a colonoscopy every year. ` [facility] Medical History (Updated 10/17/24 @ 10:40 by Jayashree Deleon NP-C) Monoallelic mutation of MUTYH gene Anxiety Vision problems Thyroid disease GERD (gastroesophageal reflux disease) High blood pressure Breast lump Back problem Arthritis Seasonal allergies Surgical History H/O colonoscopy H/O lateral meniscus repair of left knee History of surgery Family History Father Heart disease Arthritis Cancer skin Diabetes type 2 Hypertension Dementia Urinary retention Kidney disease Mother Age related osteoporosis Hormone disorder related to breast cancer Cancer, Onset Age: 38 breast, hormone related age 38 then age 60 Thyroid disorder Aunt Breast cancer, Onset Age: 63 AAA negative Grandmother Breast cancer Hypertension CVA (cerebral vascular accident) Diabetes Glaucoma Brother Diabetes Hypertension Grandfather Myocardial infarction Aunt Breast cancer Social History household members: spouse housing: house current occupational status: employed 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, Smoking Status: Never smoker alcohol intake: current alcohol intake frequency: holidays/special occasions only substance use type: does not use what type of physical activity do you participate in: none seatbelt use: always do you feel safe at home: Yes 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 history: 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) Female Reproductive History Menstrual Ab spontaneous: 3 HPI HPI Chief Complaint: est care Details: RYLEE ROPER, is a 59 F who presents to the office today for 1st cousin with colon CA at an early age (30's) - denies any change in bowel habits - denies any bleeding - h/o schatzki's ring - last dilated a few years ago - has trouble with swallowing liquids at times with cold liquids or drinking quickly - denies any trouble swallowing - she discontinued Omeprazole due to possibility of causing polyps - takes PRN - she reports HB is infrequent - she takes Meloxicam PRN - denies any heart or lung disease - non-smoker - rare EtOH use ROS Const Constitutional: No fatigue, fever(s) or weight change ENT ENT: Positive for difficulty swallowing Gastro GI: Positive for difficulty swallowing; No abdominal pain, belching, bloating, change in bowel habits, change in stool character, coffee ground emesis, constipation, cramping, diarrhea, heartburn, feeling full early, excessive flatus, incontinent of stools, Vomiting blood/hematemesis, Blood in stool, loose stools, Black,tarry stools, nausea/dyspepsia, pain with swallowing, vomiting or other Musc Musculoskeletal: Positive for joint pain and back pain Skin Skin: No yellowing of the eye or itchy eyes Psych Psychiatric: No anxiety and No depression Endo Endocrine: No fatigue or weight change Aller/Imm Allergy/Immunologic: No itchy eyes Eagle/Lymp Hematologic/Lymphatic: No easy bleeding or easy bruising Exam Const General: cooperative, healthy appearing, no acute distress and well developed Nutritional Appearance: well nourished and obese Orientation: alert and oriented x3 HENMT Head: normocephalic Ears: hearing grossly normal bilaterally Mouth: moist mucous membranes Teeth and gingiva: dentition normal Eyes Conjunctivae: conjunctivae normal Sclera: sclerae normal Neck Neck: normal visual inspection, full ROM and trachea midline Resp Effort & Inspection: normal respiratory effort, able to speak in complete sentences and symmetric chest movement Auscultation: Bilateral: Clear to Auscultation Cardio Rate: regular rate Rhythm: regular rhythm Heart Sounds: S1 normal and S2 normal GI Inspection: normal to inspection Auscultation: normal bowel sounds Palpation: soft and no hepatosplenomegaly Rectal Exam: deferred Skin General: no rashes or lesions noted and turgor normal Neuro General: patient alert and patient oriented x3 Cranial Nerves: other (CN's grossly intact, non-focal exam) Cognition: normal cognition Speech: speech normal Gait: normal gait Extrem General: normal to inspection (no edema noted) Psych Appearance: grossly normal and well kempt Affect: normal affect Attitude: cooperative Thought Process: normal Assessment and Plan Assessment and Plan (1) Monoallelic mutation of MUTYH gene: Status: Acute Comment: Genetic testing 08/15/2018, MUTYH, c.536A>G ([id number]). 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 Her last procedures were performed November 2023 and I have requested a copy of her previous procedure reports. She also reports a history of GERD with schatzki's ring, last dilation approximately 3 years ago. HB symptoms are infrequent and is taking PPI PRN. She reports only experiencing dysphagia with cold liquids and drinking fast; denies any dysphagia to solids. She will proceed with bidirectional endoscopies. Note: [employer] speech recognition cargo trimmer software was used to create portions of this document. Sound-alike and misspelled words, as well as other cargo trimmer errors may be contained in the documentation. Patient Instructions: Colon & EGD - Miralax prep Coding Level of Care Code Off vis,new,level 3 Diagnoses Monoallelic mutation of MUTYH gene Z15.89 GERD (gastroesophageal reflux disease) K21.9 Clinical Quality Measures Smoking Screening Smoking Status: Never smoker 10/17/24 1041 <Electronically signed by Jayashree CATES> Date _ Jayashree CATES Cosigner Signature: Date (if applicable) CC: ~ [facility] Work Phone: Reason for referral (narrative) , screening for skin cancer Referred by: Sole WATKINS, Louise Pablo [facility] Reason for referral (narrative)No reason for [facility] Work Phone: Summary Purpose Family History No Family History Records Found Relationship Condition Age at Onset Recorded Date/T allen father Cardiac disease Unknown Arthritis Unknown Malignant neoplasm Unknown Diabetes mellitus Unknown Hypertension Unknown Dementia Unknown Retention of urine Unknown Kidney disorder Unknown mother Age related osteoporosis Unknown Disorder of endocrine system Unknown Malignant neoplasm 38 Disorder of thyroid Unknown aunt Malignant neoplasm of breast 63 grandmother Malignant neoplasm of breast Unknown Cerebrovascular accident (CVA) Unknown Glaucoma Unknown brother Diabetes mellitus Unknown grandfather Myocardial infarction Unknown aunt Malignant neoplasm of breast Unknown Advance Directives No Advanced Directives Records FoundNo Advanced Directives Records FoundNo Advanced Directives Records FoundNo Advanced Directives Records FoundNo Advanced Directives Records FoundNo Advanced Directives Records FoundNo Advanced Directives Records Found Chief Complaint and Reason for Visit Chief Complaint Admit Date MUTATION OF MUTYH GENE April 02 1:50pm [employer]. 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) May 16, 2024 1: 37pm SCREENING July 03, 2024 10:40am Reason for Visit Admit Date Monoallelic mutation of MUTYH gene Decem 2023 1:15pm Immunization declined April 19 1:15pm Acquired hypothyroidism April 19, 024 1:15pm Establishing care with new doctorpopeye for April 19, 2024 1:15pm Lipoma April 19, 2024 1:15pm Screening for cervical cancer April 082023 1:15pm Anxiety April 19, 2024 1:15pm Seasonal allergies April 19, 2024 1:15pm Essential hypertension April 19 1:15pm Chronic pain of both knees April 1:15pm GERD (gastroesophageal reflux disease) D ecember 2023 1:15pm Encounter for routine gynecological exam ination May 16, 2024 1:37pm Chief Complaint Admit Date SCREENING July 03, 2024 10:40am Pre colon October 17, 2024 9:48 am Reason for Visit Admit Date GERD (gastroesophageal reflux disease) J [facility] 2024 9:48am Monoallelic mutation of MUTYH gene October 17, 2024 9:48am Additional Source Comments INFORMATION SOURCE (unrecogn ized section and content) DATE CREATED AUTHOR 08/12/2018 [facility] DATE CREATED AUTHOR AUTHOR'S ORGANIZ ATION 02/20/2023 [facility] DATE CREATED AUTHOR AUTHOR'S ORGANIZ ATION 08/17/2023 [facility] DATE CREATED AUTHOR AUTHOR'S ORGANIZ ATION 11/28/2023 [facility] DATE CREATED AUTHOR AUTHOR'S ORGANIZ ATION 12/24/2023 [facility] DATE CREATED AUTHOR AUTHOR'S ORGANIZ ATION 10/30/2024 [facility] DATE CREATED AUTHOR AUTHOR'S ORGANIZ ATION 12/11/2024 [facility] Patient Care team informatio n (unrecognized section and content) Team Status: Active Member Role Status Dates Dr. Marcelina Anderson MD Primary Care Provider Active Team Status: Inactive Member Role Status Dates LOUISE WHIPPLE MD Attending Provider Active S tart: April 02, 2024 End: April 02, 2024 LOUISE WHIPPLE MD Referring Provider Active S tart: April 02, 2024 End: April 02, 2024 Dr. Marcelina Anderson MD Primary Care Provider Active Start: April 02, 2024 End: April 02, 2024 Team Status: Inactive Member Role Status Dates Dr. Marcelina Anderson MD Attending Provider Active Start: April 19, 2024 End: April 19, 2024 Team Status: Inactive Member Role Status Dates Dr. Marcelina Anderson MD Primary Care Provider Active Start: May 16, 2024 End: May 16, 2024 Dr. Marcelina Anderson MD Referring Provider Active Start: May 16, 2024 End: May 16, 2024 LOAN Figueroa Attending Provider Active Start: May 16, 2024 End: May 16, 2024 Team Status: Inactive Member Role Status Dates Dr. Marcelina Anderson MD Primary Care Provider Active Start: July 03, 2024 End: July 03, 2024 LOAN Figueroa Attending Provider Active Start: July 03, 2024 End: July 03, 2024 LOAN Figueroa Referring Provider Active Start: July 03, 2024 End: July 03, 2024 Team Status: Inactive Member Role Status Dates Dr. Marcelina Anderson MD Primary Care Provider Active Start: October 17, 2024 End: October 17, 2024 Dr. Marcelina Anderson MD Referring Provider Active Start: October 17, 2024 End: October 17, 2024 LOAN Lowry Attending Provider Active Start: October 17, 2024 End: October 17, 2024 Goals (unrecognized section and content) Goals may be documented in a n alternate section FOR RECORDS PERTAINING TO PATIENTS WHO ARE OR HAVE BEEN ENROLLED IN A CHEMICAL DEPENDENCY/SUBSTANCEABUSE PROGRAM, SOME INFORMATION MAY BE OMITTED. This clinical summary was aggregated from multiple sources. Caution should be exercised in using it in the provision of clinical care. This summary normalizes information from multiple sources, and as a consequence, information in this document may materially change the coding, format and clinical context of patient data. In addition, data may be omitted in some cases. CLINICAL DECISIONS SHOULD BE BASED ON THE PRIMARY CLINICAL RECORDS. [employer] provides no warranty or guarantee of the accuracy or completeness of information in this document.
== END 2024-12-12 13:37 | disposition home or self-care (01) ==
LOC: EN 10:43 → AC 10:54
PROVIDERS: PCP Internal Medicine; Referring Provider Internal Medicine; Visit Provider Internal Medicine Gastroenterology
PROC: 0DJD8ZZ Inspection of Lower Intestinal Tract, Via Natural or Artificial Opening Endoscopic (ICD-10-PCS; CPT 45378; principal; 2024-12-12 11:40)
DX: Z12.11 Encounter for screening for malignant neoplasm of colon (principal); K22.70 Barrett's esophagus without dysplasia; K21.9 Gastro-esophageal reflux disease without esophagitis; R13.10 Dysphagia, unspecified; K57.30 Diverticulosis of large intestine without perforation or abscess without bleeding; K31.7 Polyp of stomach and duodenum; I10 Essential (primary) hypertension; E07.9 Disorder of thyroid, unspecified; Z79.1 Long term (current) use of non-steroidal anti-inflammatories (NSAID); Z79.890 Hormone replacement therapy; Z79.899 Other long term (current) drug therapy; Z80.0 Family history of malignant neoplasm of digestive organs
CPT/HCPCS: 45378; 43239; 88305; J2405

== ENCOUNTER → 2025-03-01 | Outpatient (CLI) | payer OTHER, SELFPAY ==
--- NOTE | 2025-03-01 16:12 | RAD_ITS ---
PROCEDURE: ANKLE MIN 3 VIEWS 03/01/2025 REASON FOR EXAM: ANKLE INJURY. Rolled right ankle 9 days ago. Still some pain/swelling. TECHNIQUE: Procedure Code: RADANK Modality: DX Procedure: ANKLE MIN 3 VIEWS Laterality: Right COMPARISON: None. FINDINGS: BONES: No acute fracture or focal osseous lesion. Moderate sized plantar calcaneal spur. Small achilles tendon insertional enthesophyte. JOINTS: No dislocation. The joint spaces are normal. SOFT TISSUES: There is mild swelling in the lateral ankle. RAD/Ankle min 3 Views IMPRESSION: SOFT TISSUE SWELLING. NO FRACTURE IDENTIFIED. Reading Location: [id number]
--- OUTSIDE RECORDS SUMMARY | 2025-03-01 16:44 | XMS RPT_ITS | CCD ---
Author Organization [facility] CliniSyri Care Team Providers Care Drafter Topographical Name Role Phone SHAUN SAM[place] [place] Attending UnavailLeidy Castro Primary Care Physician Mike Peralta III Primary Care Physician MITESH MORSE Attending Unavailable MOODTHARSH Referring Unavailable MITESH MORSE Attending Unavailable MOODT, HARSH Referring Unavailable OLGA BRIAN Attending Unavailable OLGA BRIAN Referring Unavailable MITESH MORSE Attending Unavailable MOODT, HARSH Referring Unavailable MITESH MORSE Attending Unavailable MOODT, HARSH Referring Unavailable Louise Whipple Attending Unavailable LOUISE WHIPPLE MD Attending Provider LOUISE WHIPPLE MD Referring Provider Dr. Marcelina Anderson MD Primary Care Provider [phone] Dr. Marcelina Anderson MD Attending Provider Dr. Marcelina Anderson MD Referring Provider Gladis Mccollum Attending Provider Gladis Mccollum Referring Provider Dr. Marcelina Anderson MD Primary Care Provider Gladis Mccollum Attending Provider Dr. Marcelina Anderson MD Referring Provider Jayashree Harvey Attending Provider Paul Landaverde Admitting Paul Nolasco Attending Unavaila Paul Herrera Referring UnavailDr. Marcelina Arellano MD Primary Care Provider Friend , Dr. Blackwell Attending Provider Friend , Dr. Blackwell Other Provider [phone] Monica, Marcelina Primary Care Unavailable Jayashree Deleon Attending Unavailable Marysvale, Marcelina Referring Unavailable [place]svale, Marcelina Primary Care Unavailable FriendRishi Consulting Unavailable Friend, Rishi Attending Unavailable [place]svale, Marcelina Referring Unavailable [place]svale, Marcelina Primary Care Unavailable Friend, Rishi Attending Unavailable [place]svale, Marcelina Referring Unavailable [place]ale, Marcelina Primary Care Unavailable Gladis Espinal Attending Unavailable Gladis Espinal Referring Unavailable Monica, Marcelina Attending Unavailable MOKIMMYLILOUISE Attending Unavailable MOUCHJEM MOHAMAD Referring Unavailable Monica, Marcelina Primary Care Unavailable Monica, Marcelina Referring Unavailable Gladis Espinal Attending Unavailable Marysvale, Marcelina Primary Care Unavailable Allergies Allergy Classification Reported Allergen(s) Allergy Type Date of Onset Reaction(s) Facility (20 sources) cefdinir; Translations: [cefdinir] Drug Allergy 5 Nausea and Vomiting, Unknown [facility] (1 source) cefdinir Drug Allergy 5 [facility] Repository Medications Current Medications Medication Drug Class(es) [...] day(s), # 90 cap(s), Refills(s) 0, Pharmacy: [facility], 170, cm, 09/28/22 10:07:00 EDT, Height/Length Dosing, 117.9, kg, 09/28/22 10:07:00 EDT, Weight Dosing Start Date: 09/28/22 Stop Date: 12/27/22 Status: Ordered calcium carbonate 1500 mg oral tablet (3 sources) Start: 04-19-2024 take 1 tablet by [...] Status: Ordered citalopram 20 mg oral tablet (20 sources) Serotonin Reuptake Inhibitor Start: 05-16-2024 take [...] Ordered fexofenadine hydrochloride 60 mg oral tablet (19 sources) Histamine-1 Receptor Antagonist Start: 10-17-2024 take [...] Allergy symptoms Start Date: 11/17/18 Status: Ordered Dbdefwsq-Dhi-Mvfct-Xhn332-Xj al (Keooei-Pntkx-Iev (With Antiox)) 500-500-66.7 mg tablet (3 sources) Start: 04-19-2024 Awpaedtc-Thh-Jpknc-Bgn853-Sy al (Opxeua-Pbnmr-Ciw (With Antiox)) 500-500-66.7 mg tablet Active 1 {tbl} PO DAILY April 19, 2024 1:00am Start: 04-19-2024 Camjejce-Sbs-D uoxn-Pxs423-Isdr (Barqkj-Lnucy-Aam (With Antiox)) 500-500-66.7 mg tablet Active {tbl} PO April 19, 2024 1:00am lisinopril 10 mg oral tablet (20 sources) Angiotensin Converting Enzyme Inhibitor Start: 04-19-2024 End: 05-22-2024 take 1 tablet by mouth once daily Lisinopril 10 mg tablet Active 10 mg PO daily May 22, 2024 1:34pm Start: 04-18-2013 take 10 mg by mouth once daily lisinopril 10 mg, Oral, Daily, Refills(s) 0, High blood pressure Start Date: 04/18/13 Status: Ordered Magnesium (5 sources) Start: 10-17-2024 Magnesium 250 mg tablet [...] Status: Ordered meloxicam 15 mg oral tablet (8 sources) Nonsteroidal Anti-inflammatory Drug Start: 04-19-2024 End: 10-17-2024 take 1 tablet by mouth once daily as needed for pain Meloxicam 15 mg tablet Active 15 mg PO daily as needed for pain October 17, 2024 10:13am Start: 11-16-2023 take 1 tablet by deja once daily meloxicam 15 mg Tab 15 mg = 1 tab(s), Oral, Daily, Refills(s) 0 Start Date: 11/16/23 Status: Ordered 24 hr metoprolol succinate 50 mg extended release oral tablet (20 sources) beta-Adrenergic Junior Start: 04-19-2024 End: 10-31-2024 take 1 tablet by mouth once daily Metoprolol Succinate 50 mg tablet extended release 24 hr Active 50 mg PO daily 90 October 31, 2024 8:47am Start: 11-17-2018 take 1 tablet by deja once daily Metoprolol succinate 25 mg ER Tablet 25 mg, Oral, Daily, Refills(s) 0, High blood pressure Start Date: 11/17/18 Status: Ordered Start: 11-17-2018 take 1 tablet by deja once daily Metoprolol succinate 25 mg ER Tablet 25 mg, Oral, Daily, Refills(s) 0, High blood pressure Start Date: 11/17/18 Status: Ordered montelukast 10 mg oral tablet (17 sources) Leukotriene Receptor Antagonist Start: 04-19-2024 take 1 tablet by mouth once daily Montelukast 10 mg tablet Active 10 mg PO daily April 19, 2024 1:00am Start: 11-20-2018 take 10 mg by mouth once daily montelukast 10 mg, Oral, Daily, Refills(s) 0, Allergy symptoms Start Date: 11/20/18 Status: Ordered polyethylene glycol 3350 119529 mg / potassium chloride 1480 mg / sodium bicarbonate 5720 mg / sodium chloride 83614 mg powder for oral solution (5 sources) Osmotic Laxative Start: 02-22-2022 take 1 dose by mouth once NuLYTELY Burleigh oral powder for reconstitution See Instructions, 1 EA, Refill(s) 0, prior to colonoscopy, per physician instructions, [facility], 170, cm, 02/18/22 12:56:00 EDT, Height/Length Dosing, 114.7, kg, 02/18/22 12:56:00 EDT, Weight Dosing Start Date: 02/22/22 Status: Ordered predniSONE 20 mg oral tablet (1 source) Start: 09-08-2022 End: 09-13-2022 take 3 tablets by mouth once daily predniSONE 20 mg Tab 60 mg = 3 tab(s), Oral, Daily, X 5 day(s), # 15 tab(s), Refills(s) 0, Pharmacy: [facility], 170, cm, 09/08/22 20:53:00 EDT, Height/Length Dosing, 114.7, kg, 09/08/22 20:53:00 EDT, Weight Dosing Start Date: 09/08/22 Stop Date: 09/13/22 Status: Ordered psyllium 525 mg oral capsule (2 sources) Start: 09-28-2022 End: 12-27-2022 take 1 capsule by mouth once daily Metamucil 525 mg oral capsule 1 cap., Oral, Daily, X 90 day(s), # 90 cap(s), Refills(s) 0, Pharmacy: [facility], 170, cm, 09/28/22 [...] Drug Class(es) Dates Sig (Normalized) Sig (Original) levothyroxine sodium 0.05 mg oral tablet (20 sources) l-Thyroxine Start: 11-01-2024 End: 11-01-2024 take 1 tablet by mouth once daily Levothyroxine (Synthroid) 50 mcg tablet Discontinued 50 ug PO daily 90 1 November 01, 2024 9:12am November 01, 2024 9:45am Start: 10-17-2024 End: 11-01-2024 Levothyroxine (Synthroid) 50 mcg tablet Discontinued 25 ug PO daily 90 1 October 31, 2024 12:46pm November 01, 2024 8:58am Start: 04-19-2024 End: 10-17-2024 take 1 tablet by mouth once daily Levothyroxine (Synthroid) 50 mcg tablet Discontinued 50 ug PO daily April 19, 2024 1:00am October 17, 2024 10:13am Start: 11-17-2018 Synthroid 25 m icrogram, Oral, Daily, Refills(s) 0, Thyroid Start Date: 11/17/18 Status: Ordered omeprazole 40 mg delayed release oral capsule (8 sources) Proton Pump Inhibitor Start: 04-19-2024 End: [...] day(s), # 90 cap(s), Refills(s) 1, Pharmacy: [facility], 170, cm, 12/14/22 10:51:00 EDT, Height/Length Dosing, 118.9, kg, 12/14/22 10:51:00 EDT, Weight Dosing Start Date: 12/14/22 Stop Date: 06/12/23 Status: Ordered Start: 09-15-2022 take 1 capsule by mo [facility] once daily omeprazole 40 mg Cap-DR 40 mg = 1 cap(s), Oral, Daily, # 30 cap(s), Refills(s) 2, Pharmacy: [facility], 170, cm, 09/15/22 [...] pain of both knees] 04-19-2024 Episodic Other screening for suspected conditions (not mental disorders or infectious disease) (18 sources) Culture positive for methicillin resistant Staphylococcus aureus; Translations: [Cancer cervix screening status] Onset: 01-26-2020 01-29-2020 Episodic Comment on above: MRSA breast abscess 01/26/2020 Other upper respiratory disease (14 sources) Seasonal [...] of colon 06-16-2023 Episodic Residual codes; unclassified (7 sources) Genetic mutation; Translations: [Genetic susceptibility to other disease] 04-19-2024 Episodic Comment on above: Genetic testing 2018, MUTYH, c.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 Residual codes; unclassified (4 sources) History of colonoscopy; Translations: [Other specified postprocedural states] 05-18-2024 Episodic Comment on above: 11/2023 Residual codes; unclassified (1 source) Medication refused; Translations: [Immunization not carried out because of patient refusal] 04-19-2024 Episodic Residual codes; unclassified (1 source) Other specified postprocedural states; Translations: [Other specified postprocedural states] Onset: 01-09-2025 Episodic Residual codes; unclassified (2 sources) Genetic susceptibility to other disease; Translations: [Genetic susceptibility to other disease] Onset: 10-17-2024 Episodic Thyroid disorders (1 source) Acquired hypothyroidism; Translations: [Hypothyroidism, unspecified] 04-19-2024 Chronic Unclassified (2 sources) Monoallelic mutation of MUTYH gene; Translations: [Z15.89 - Genetic susceptibility to other disease] Unclassified (1 source) Z12.4 - Encounter for screening for malignant neoplasm of cervix Past or Other Problems Problem Classification Problem Date Documented Da te Episodic/Chronic Other and unspecified benign neoplasm (1 source) Benign neoplasm of colon, unspecified; Translations: [Benign neoplasm of colon, unspecified] Onset: 04-29-2024 Episodic Results Test Name Value Interpretation Reference Range Facility Colonoscopy Reporton 025 Colonoscopy Report [facility] Medical Records Department [address] [place] [address] Colonoscopy Report MR#: [id number] Acct: [id number] Name: RYLEE ROPER Rep #: [id number] : 1965 59 From: Rishi Tse DO PCP: Dr. Marcelina Anderson MD Status:[facility] Patient Name: Rylee Roper Procedure Date: 12/12/2024 12:26 PM Date of : 1965 Age: 59 Procedure: Colonoscopy Indications: Screening for colorectal malignant neoplasm Providers: Rishi Tse DO Medicines: Monitored Anesthesia Care Patient Profile: This is a 59 year old female. Refer to note in patient chart for documentation of history and physical. Patient has symptoms of chronic heartburn. Last Colonoscopy: several years ago. Complications: No immediate complications. Procedure: Pre-Anesthesia Assessment: - Prior to the procedure, a History and Physical was performed, and patient medications and allergies were reviewed. The patient is competent. The risks and benefits of the procedure and the sedation options and risks were discussed with the patient. All questions were answered and informed consent was obtained. Patient identification and proposed procedure were verified by the physician in the pre-procedure area. Mental Status Examination: alert and oriented. Airway Examination: normal oropharyngeal airway and neck mobility. Respiratory Examination: clear to auscultation. CV Examination: normal. Prophylactic Antibiotics: The patient does not require prophylactic antibiotics. Prior Anticoagulants: The patient has taken no anticoagulant or antiplatelet agents except for NSAID medication. ASA Grade Assessment: II - A patient with mild systemic disease. After reviewing the risks and benefits, the patient was deemed in satisfactory condition to undergo the procedure. The anesthesia plan was to use monitored anesthesia care (MAC). Immediately prior to administration of medications, the patient was re-assessed for adequacy to receive sedatives. The heart rate, respiratory rate, oxygen saturations, blood pressure, adequacy of pulmonary ventilation, and response to care were monitored throughout the procedure. The physical status of the patient was re-assessed after the procedure. After I obtained informed consent, the scope was passed under direct vision. Throughout the procedure, the patient's blood pressure, pulse, and oxygen saturations were monitored continuously. The Colonoscope was introduced through the anus and advanced to the cecum, identified by appendiceal orifice and ileocecal valve. The colonoscopy was performed without difficulty. The patient tolerated the procedure well. The quality of the bowel preparation was adequate. The ileocecal valve, appendiceal orifice, and rectum were photographed. Scope In: 12:27:21 PM Scope Withdrawal Time 0 hours 5 minutes 12 seconds Scope Out: 12:35:48 PM Total Procedure Duration Time 0 hours 8 minutes 27 seconds Findings: The perianal and digital rectal examinations were normal. A few small-mouthed diverticula were found in the recto-sigmoid colon and sigmoid colon. Impression: - Diverticulosis in the recto-sigmoid colon and in the sigmoid colon. - No specimens collected. Recommendation: - Discharge patient to home. - Resume previous diet. - Continue present medications. - Repeat colonoscopy. Procedure Code(s): --- Professional --- 44387, Colonoscopy, flexible; diagnostic, including collection of specimen(s) by brushing or washing, when performed (separate procedure) CPT copyright 2021 [employer]. All rights reserved. The codes documented in this report are preliminary and upon spool sorter review may be revised to meet current compliance requirements. Rishi Tse DO 12/12/2024 12:43:54 PM This report has been signed electronically. Number of Addenda: 0 Note Initiated On: 12/12/2024 12:26 PM 12/12/24 1243 Date Rishi Tse DO Cosigner Signature: Date (if indicated) CC: Dr. Marcelina Anderson MD; Rishi Tse DO Date Dictated: 12/12/24 1226 Date Transcribed: Interface Designer: CARLYLE Signed Normal [facility] EGD Reporton 12-12-2024 EGD Report [facility] Medical Records Department [address] [place] [address] EGD Report MR#: [id number] Acct: [id number] Name: RYLEE ROPER Rep #: [id number] : 1965 59 From: Rishi Tse DO PCP: Dr. Marcelina Anderson MD Status:[facility] Patient Name: Rylee Roper Procedure Date: 12/12/2024 12:15 PM Date of : 1965 Age: 59 Procedure: Upper GI endoscopy Indications: Esophageal reflux Providers: Rishi Friend, DO Medicines: Monitored Anesthesia Care Patient Profile: This is a 59 year old female. Refer to note in patient chart for documentation of history and physical. Patient has symptoms of chronic heartburn. Complications: No immediate complications. Procedure: Pre-Anesthesia Assessment: - Prior to the procedure, a History and Physical was performed, and patient medications and allergies were reviewed. The patient is competent. The risks and benefits of the procedure and the sedation options and risks were discussed with the patient. All questions were answered and informed consent was obtained. Patient identification and proposed procedure were verified by the physician in the pre-procedure area. Mental Status Examination: alert and oriented. Airway Examination: normal oropharyngeal airway and neck mobility. Respiratory Examination: clear to auscultation. CV Examination: normal. Prophylactic Antibiotics: The patient does not require prophylactic antibiotics. Prior Anticoagulants: The patient has taken no anticoagulant or antiplatelet agents except for NSAID medication. ASA Grade Assessment: II - A patient with mild systemic disease. After reviewing the risks and benefits, the patient was deemed in satisfactory condition to undergo the procedure. The anesthesia plan was to use monitored anesthesia care (MAC). Immediately prior to administration of medications, the patient was re-assessed for adequacy to receive sedatives. The heart rate, respiratory rate, oxygen saturations, blood pressure, adequacy of pulmonary ventilation, and response to care were monitored throughout the procedure. The physical status of the patient was re-assessed after the procedure. After obtaining informed consent, the endoscope was passed under direct vision. Throughout the procedure, the patient's blood pressure, pulse, and oxygen saturations were monitored continuously. The Colonoscope was introduced through the mouth, and advanced to the second part of duodenum. The upper GI endoscopy was accomplished without difficulty. The patient tolerated the procedure well. Scope In: 12:23:37 PM Scope Out: 12:26:01 PM Total Procedure Duration Time 0 hours 2 minutes 24 seconds Findings: The Z-line was irregular and was found 40 cm from the incisors. Biopsies were taken with a cold forceps for histology. A few diminutive hyperplastic polyps with no bleeding and no stigmata of recent bleeding were found in the gastric fundus and in the gastric body. No gross lesions were noted in the entire examined duodenum. Impression: - Z-line irregular, 40 cm from the incisors. Biopsied. - A few gastric polyps. - No gross lesions in the entire examined duodenum. Recommendation: - Await pathology results. - Repeat upper endoscopy for surveillance. - Continue present medications. Procedure Code(s): --- Professional --- 09154, Esophagogastroduodenoscop y, flexible, transoral; with biopsy, single or multiple CPT copyright 2021 [employer]. All rights reserved. The codes documented in this report are preliminary and upon spool sorter review may be revised to meet current compliance requirements. Rishi Tse DO 12/12/2024 12:41:49 PM This report has been signed electronically. Number of Addenda: 0 Note Initiated On: 12/12/2024 12:15 PM 12/12/24 1242 Date Rishi Tse DO Cosigner Signature: Date (if indicated) CC: Dr. Marcelina Anderson MD; Rishi Tse DO Date Dictated: 12/12/24 1215 Date Transcribed: Interface Designer: CARLYLE Kidd [facility] MR/OP.Darius 12-12-2024 MR/OP.[facility] Medical Records Department [address] [place] [address] Provation Physician Letter MR#: [id number] Acct: [id number] Name: RYLEE ROPER Rep #: [id number] : 1965 59 From: Rishi Tse DO PCP: Dr. Marcelina Anderson MD [place] [place]/12/2024 aMrcelina Anderson Md Re : Colonoscopy procedure for Rylee Jacquelin Dear Monica This procedure was performed on Thursday, December 12, 2024. My impressions and recommendations are as follows: Impressions : - Diverticulosis in the recto-sigmoid colon and in the sigmoid colon. - No specimens collected. Recommendations : - Discharge patient to home. - Resume previous diet. - Continue present medications. - Repeat colonoscopy. My findings are described in the full procedure note, which is enclosed. If I can be of further assistance, please feel free to contact me at . Sincerely, Rishi Tse DO 12/12/2024 12:43:54 PM This report has been signed electronically. 12/12/24 1243 Date Rishi Hernándezigner Signature: Date (if indicated) CC: Dr. Marcelina Anderson MD; Rishi Tse DO Date Dictated: 12/12/24 1226 Date Transcribed: Interface Designer: RF Signed [facility] MR/OP.[facility] Medical Records Department [facility] [address] [place] [address] [facility] Physician Letter MR#: [id number] Acct: [id number] Name: RYLEE ROPER Rep #: [id number] : 1965 59 From: Rishi Tse DO PCP: Dr. Marcelina Anderson MD Status:[facility] 12/12/2024 Marcelina Anderson Md Re : Upper GI endoscopy procedure for Rylee Roper Dear Monica This procedure was performed on Tuesday, December 12, 2024. My impressions and recommendations are as follows: Impressions : - Z-line irregular, 40 cm from the incisors. Biopsied. - A few gastric polyps. - No gross lesions in the entire examined duodenum. Recommendations : - Await pathology results. - Repeat upper endoscopy for surveillance. - Continue present medications. My findings are described in the full procedure note, which is enclosed. If I can be of further assistance, please feel free to contact me at . Sincerely, Rishi Tse DO 12/12/2024 12:41:49 PM This report has been signed electronically. 12/12/24 1242 Date Rishi Quiroga Signature: Date (if indicated) CC: Dr. Marcelina Anderson MD; Rishi Tse DO Date Dictated: 12/12/245 Date Transcribed: Interface Designer: CARLYLE Signed [facility] MR/POSTOP.ANEon 12-12-2024 MR/POSTOP.[facility] Medical Records Department [address] [place] [address] Anesthesia Postop Eval I 12/12/24 1244 MR#: [id number] Acct: [id number] Name: MAE ROPERVENKAT MONTOYAN Rep #: [id number] : 1965 59 From: Sebastian Sanchez PCP: Dr. Marcelina Anderson MD [place] [place] Race: C Location: [place] [address] Anesthesia: Postop Eval I Current Vital Signs Temperature: 97.4 F Pulse Rate: 61 Blood Pressure: 121/65 Respiratory Rate: 16 Pulse Ox: 96 Oxygen Delivery Method: Room Air Assessment Airway patent: Yes Spontaneous unlabored respirations: Yes Mental status: Asleep nausea: No Vomiting: No Anesthesia Complication: No Fluid Hydration Crystalloid volume administer (ml): 600 Total IV fluid infused: 600 Progress Note Anesthesia document: Postop Eval 1 completed: Yes 12/12/24 1245 Date Sebastian Nguyen Signature: Date CC: Signed [facility] Surgery Specimen Level David 12-12-2024 Surgery Specimen Level IV Patient Age/Sex Location Account Attending Physician RYLEE ROPER 59/F EN [id number] Rishi Tse DO Specimen: [id number] Received: 12/12/24 Status: DANIELLA Rabago Num: [id number] Spec Type: EGD BIOPSY Kacey Dr: DO GREGORIA Leal OPERATION: Colonoscopy, EGD and biopsy PRE-OP DIAGNOSIS: GERD and family history of colon cancer TISSUE SUBMITTED: A- Distal esophagus biopsy MICROSCOPIC DIAGNOSIS A. 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 GROSS DESCRIPTION A. Received in fixative is one container labeled with the patient's name and designated Distal esophagus biopsy." The specimen consists of two irregular fragments of light bermudez tissue that measure 0.3 and 0.5 cm. The specimen is totally submitted in one cassette. [place] 12/12/2024 CPT:56262 Patient Age/Sex Location Account Attending Physician RYLEE ROPER 59/F EN [id number] Rishi Tse DO Signed (signature on file) Dr. Issac Mae MD 12/18/24 0952 Normal [facility] Comment on above: Performed By: #### P SUIV #### [facility] [address] [place], [address] Patient Letter FTon 2024 Patient Letter [facility] Patient Letter [facility] October 29, 2024 RYLEE ROPER [address] [place] [address] [place] [address] : 1965 Dear Rylee, This is a reminder that you are due for an appointment with [facility] for an EGD. Please contact our office at [phone] to schedule an appointment at your earliest convenience. Thank you, [facility] Normal [facility] Reminderson 10-29-2024 Reminders Reminders From: Darleen Lopez MA S To: [facility] - Reminders/Recalls; Sent: 11/28/2023 13:25:25 EDT Show up: 10/07/2024 13:25:00 EDT Subject: EGD/Colon recall Due Date/Time: 11/15/2024 13:25:00 EDT Reminder/Recall 1 year EGD/Colon Dr Whipple 11/16/23 EGD 2024 Colon 2025- new reminder placed for colonoscopy recall letter for EGD Normal [facility] Gastroenterology Visit Repor ton 10-17-2024 Gastroenterology Visit Report [facility] Gastroenterology [address] [place] [address] OFFICE VISIT Date of Service: 10/17/24 MR#: [id number] Acct: [id number] Name: RYLEE ROPER Rep #: [id number] : 1965 Provider: LOAN jackson Age/Sex: 59/F Location[place] [facility] [place] Status: Signed with Addenda ADDENDUM by Mary Anne Guerrero on 10/17/24 at 1105 HPI Details: RYLEE ROPER, is a 59 F who presents to the office today for Vital Signs 04/19/24 13:35 01/08/25 13:41 10/17/24 11:04 Height 5 ft 4 in 5 ft 4 in 5 ft 4 in Weight: 259 lb 2 oz BMI 44.4 BP 144/74 H Respiration 18 Pulse 73 Pulse Oximetry (%) 95 Oxygen Delivery Method room air 11/06/24 0759 Date Jayashree Deleon [facility] cc: * Signed Intake Vital Signs 04/19/24 [...] Reasons: Pre colon Chief Complaint: est care Outside Sales Inspector Required: No Accompanied by: Self Is patient in pain?: No Allergies cefdinir (From [employer]) Allergy (Mild, Verified 10/17/24 10:08) unknown Medications ???Medication ???Instructions ???Recorded ???Confirmed ???Type calcium carbonate 600 mg PO QDAY 04/19/24 10/17/24 H istory hsxdlwtrnyt-jkb-pofzckzxn -hrb tab PO 04/19/24 10/17/24 History 149-hyalur [...] ring. Gets a colonoscopy every year. 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 Normal [facility] Breast imaging reportOrdered By: Jalen Adrian on 07-04-2024 Study report [facility] Imaging Services [address] [place] [address] SCRN MAMM (CAD)W/CEASAR BILAT MR#: [id number] Acct: [id number] Name: RYLEE ROPER Rep #: [id number] : 1965 F 59 From: Crow dArian MD PCP: Dr. Marcelina Anderson MD Status: REG CLI Study:SCRN MAMM (CAD)W/CEASAR BILAT Date of Exa m: 07/03/24 Exam# [id number] Ordering Dr: Gladis Espinal [facility] PROCEDURE: SCRN MAMM (CAD)W/CEASAR BILAT REASON FOR [...] of the results by letter. Reading Location: [id number] CC: [facility]-C Gladis Espinal; Dr. Marcelina Anderson MD ~ Interface Designer: Signed [facility] SCRN MAMM (CAD)W/CEASAR BILATo n 07-03-2024 SCRN MAMM (CAD)W/CEASAR BILAT [facility] Imaging Services [address] [place] [address] SCRN MAMM (CAD)W/CEASAR BILAT MR#: [id number] Acct: [id number] Name: RYLEE ROPER Rep #: [id number] : 1965 F 59 From: Jalen whitney MD PCP: Dr. Marcelina Anderson MD Status: REG CLI Study: SCRN MAMM (CAD)W/CEASAR BILAT Date of Exam: 06/10 09/30 Exam# [id number] Ordering Dr: Gladis Espinal PROCEDURE: SCRN MAMM [...] CC: LOAN Espinal; Dr. Marcelina Anderson MD Interface Designer: Signed Normal [facility] Trouble Operator Office Visit Reporton 05-16-2024 Trouble Operator Office Visit Report [facility]'s [address], [address] [place] [address] OFFICE VISIT Date of Service: 05/16/24 MR#: [id number] Acct: [id number] Name: RYLEE ROPER Rep #: [id number] : 1965 Provider: LOAN Ross Age/Sex: 58/F Location: [facility] [place] Status: Signed Intake Vital Signs 04/19/24 13:35 05/16/24 13:41 Height 5 ft 4 in 5 ft 4 in Weight: 256 lb 260 lb BMI 43.9 44.6 BP 120/78 154/77 H Blood Pressure Location Lt brachial Position Sitting Respiration 16 Pulse 68 Pulse Source Monitor Temp 97.6 F L Pulse Oximetry (%) 97 Oxygen Delivery Method room air Intake Visit Reasons: Annual ([employer]) Outside Sales Inspector Required: No Is patient in pain?: No Allergies No Known Allergies Allergy (Verified 05/16/24 13:41) Medications ???Medication ???Instructions ???Recorded ???Confirmed ???Type calcium carbonate 600 mg PO QDAY 04/19/24 05/16/24 History fexofenadine 60 mg tablet (Ajz 60 mg PO BID 04/19/24 05/16/24 History Allergy) ffhejyxcosi-ukm-cqvkpdjcf -hrb tab PO 04/19/24 05/16/24 History 149-hyalur [...] house current occupational status: employed 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, Smoking Status: Never smoker alcohol intake: current alcohol intake frequency: holidays/special occasions only substance use type: does not use what type of physical activity do you participate in: none seatbelt use: always do you feel safe at home: Yes 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 She has a MUTYH mutation; She reports no issues or concerns today. She does have incontinence; has had this since 1997. Mixed. Not interested in treatment. Last PAP: 2022; normal hpv neg-Dr. Leanne Hassan ([facility])--will need records request. History of abnormal [...] vision or (more content not included)... Normal [facility] Internal Medicine Office Vis eliezercarline 04-18-2024 Internal Medicine Office Visit [facility] [address] [place] [address] [place] [address] OFFICE VISIT Date of Service: 04/19/24 MR#: [id number] Acct: [id number] Name: RYLEE ROPER Rep #: [id number] : 1965 Provider: Dr. Marcelina junior MD Age/Sex: 58/F Location[place] [facility] [place] Status: Signed Intake Vital Signs 04/19/24 13:35 Height 5 ft 4 in Weight: 256 lb BMI 43.9 BP 120/78 Blood Pressure Location Lt brachial Position Sitting Respiration 16 Pulse 68 Pulse Source Monitor Temp 97.6 F L Temp Source Temporal Pulse Oximetry (%) 97 Oxygen Delivery Method room air Intake Visit Reasons: [facility]. EST CARE - PPW SENT Chief Complaint: est care Outside Sales Inspector Required: No Accompanied by: Self Is patient in pain?: No Allergies No Known Allergies Allergy (Unverified 04/19/24 13:17) Medications ???Medication ???Instructions ???Recorded ???Confirmed ???Type calcium carbonate 600 mg PO QDAY 04/19/24 04/19/24 History citalopram 20 mg tablet (Celexa) 20 mg PO QDAY 04/19/24 04/19/24 History fexofenadine 60 mg tablet (Jaz 60 mg PO BID 04/19/24 04/19/24 History Allergy) vknsbigyyxi-bag-rlizfcwce -hrb tab PO 04/19/24 04/19/24 History 149-hyalur [...] house current occupational status: employed 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 Normal [facility] Thyroidon 04-02-2024 Thyroid [facility] Imaging Services [address] [place], [place] [address] Thyroid MR#: [id number] Acct: [id number] Name: RYLEE ROPER Rep #: [id number] : 1965 F 58 From: Roque Liu PCP: Dr. Marcelina Anderson MD Status: [facility] Study: Thyroid Date of Exam: 04/02/24 Exam# [id number] Ordering Dr: LOUISE WHIPPLE MD [id number] STUDY: THYROID ULTRASOUND REASON FOR EXAM: Female, [...] is solid or almost completely solid, hypoechoic, jfjaj-srhf-mgzv, margins cannot be determined and contains no echogenic foci. TI-RADS points: 4. TI-RADS category: TR4. This nodule is moderately suspicious but no FNA or follow-up is necessary given the small size of this nodule. Electronically Signed: Roque Hitchcock MD at 14:47 EST Reading Location ID and State: [facility] / [place] Tel , Service support , CC: Dr. Marcelina Anderson MD; LOUISE WHIPPLE MD Interface Designer: Signed Normal [facility] Ambulatory Visit Summaryon 0 12-23-2023 Ambulatory Visit Summary Ambulatory Visi t Summary RYLEE ROPER Elfego :1965 Visit Date:12/23/2023 Ambulatory Visit Instructions Your [...] for choosing us for your care. Normal [facility] Gastroenterology Office/Clin ic Noteon 12-23-2023 Gastroenterology Office/Clinic [...] Synthroid, 25 mcg, Oral, Daily Vitamin D, 6[address] International_Unit, Oral, qWeek Walker, 0 Allergies Omnicef (Nausea and Vomiting) cefdinir (Unknown, Nausea and Vomiting) Social History Alcohol - Denies Alcohol Use, 04/18/2013 Current, 12/12/2019 Exercise Other Caffeine- 2-3 cups da (more content not included)... Normal [facility] Comment on above: Result Comment: Elec tronically Signed By: Sole WATKINS, Louise Pablo\\.br\\Date and Time Signed: 12/23/23 10:44 EDT Reminderson 12-23-2023 Reminders Reminders From: Darleen Lopez MA To: [facility] - Reminders/Recalls; Sent: 12/23/2023 11:04:51 EDT Show up: 10/07/2025 11:03:00 EDT Subject: colon recall Due Date/Time: 11/15/2025 11:04:00 EDT Reminder/Recall [address] Whipple 11/16/23 Normal [facility] Surgical Pathology Reporton 11-24-2023 Surgical Pathology Report [facility] [address] [place] [address]- Surgical Pathology Report Collected Date/Time: 11/16/2023 13:04 [...] is entirely submitted in one cassette. (DC) DC:[facility] Microscopic Description A&B: Microscopic examination performed unless "gross only" specified. Normal [facility] Comment on above: Performed By: #### [id number] #### [facility] [address] [place] [address] Main OR Intraoperative Recor don 11-17-2023 Main OR Intraoperative Record Main OR Intraoperative Record IntraOp Document Type FT Summary Primary Physician: Louise Whipple MD Finalized Date/Time: 11/17/23 08:49:04 Pt. Name: RYLEE ROPER Elfego LermaB./Sex: 1965 Female Med Rec #: [id number] Physician: Paul Landaverde MD Financial #: [id number] Pt. Type: O Room/Bed: / Admit/Disch: 11/16/23 [...] Whipple MD, Bhavani Delvalle RN Role Performed DRAGGER Surgeon - Primary Compliance Consultant - Primary Time In 11/16/23 12:19:00 11/16/23 12:19:00 11/16/23 12:19:00 Time Out 11/16/23 13:05:00 11/16/23 13:05:00 11/16/23 13:05:00 Procedure EGD AND COLONOSCOPY(.) EGD AND COLONOSCOPY(.) EGD AND COLONOSCOPY(.) Comments Dr. Arellano supervising Last Modified By: Arpan RN, Bhavani Antony RN, Bhavani Antony RN, Bhavani 11/16/23 13:06:22 11/16/23 [...] polypectomy x3 Primary Procedure Yes Primary Surgeon Louise Whipple MD Start 11/16/23 12:24:00 Stop 11/16/23 13:00:00 Anesthesia [...] and tissue Entry 1 Skin Integrity Intact, Luc[place], Warm, and Skin Abnormality No Dry Outcomes Met? Yes Last Modified By: Bhavani Antony RN 11/16/23 12:29:48 Post-Care Text: The patient is free from signs and symptoms of injury caused by ext (more content not included)... Normal [facility] Discharge Instructionson Discharge Instructions Discharge Instruc tions RYLEE ROPER [...] care physician. This Is Your Medications List [facility] Prescription (Walker) ascorbic acid/chondroitin/glucosa/ elvin (Glucosamine Chondroitin) [...] Follow Up with Sole WATKINS, YESENIA [place], [facility] When: Comments: will call for follow up Where: [address] [place] [address], [address] [place] [address]- [phone] Medications What How Much When Why Instructions [...] certain medici (more content not included)... Normal [facility] Comment on above: Result Comment: Elec tronically Signed By: Sergio DÍAZ, Colleen\\.br\\Date and Time Signed: 11/16/23 13:22 EDT Discharge [...] care physician. This Is Your Medications List [facility] Prescription (Walker) ascorbic acid/chondroitin/glucosa/ elvin (Glucosamine Chondroitin) [...] Follow Up with Sole WATKINS, YESENIA [place], [facility] When: Comments: will call for follow up Where: [address] [place] [address], [address] [place] [address]- [phone] Medications What How Much When Why Instructions [...] you m (more content not included)... Normal [facility] Comment on above: Result Comment: Elec tronically Signed By: Sergio DÍAZ, Colleen\\.timbo\\Date and Time Signed: 11/16/23 13:17 EDT EGDon 11-16-2023 Esophagogastroduodenosco py EGD Patient: RYLEE ROPER Age: 58 years Sex: Female : 1965 Associated Diagnoses: None Author: Louise Whippel MD Pre-Procedure Procedure Date 11/16/2023 13:03:00 . [...] bulb. Otherwise, normal duodenum. Images Procedure images: Rec1_hd_video___[id number].jpg Rec_hd_video___57_594.jpg Rec_hd_video_ 11_34_14_278.jpg Rec_hd_video_ 11_34_32_598.jpg Rec_hd_video_ 11_34_44_276.jpg Rec_hd_video_ 11_35_[id number]_439.jpg Rec_hd_video_ 11_37_15_711.jpg Rec_hd_video_ 11_38_19_552.jpg . Post-Procedure Complications: none. Estimated blood [...] in GI clinic in 1-2 after discharge [facility] Comment on above: Other Comment: Danika zamora Attachment - attachment storage system not supported [id number] Can be viewed in source system Missing Attachment - attachment storage system not supported [id number] Can be viewed in source system Missing Attachment - attachment storage system not supported [id number] Can be viewed in source system Missing Attachment - attachment storage system not supported [id number] Can be viewed in source system Missing Attachment - attachment storage system not supported [id number] Can be viewed in source system Missing Attachment - attachment storage system not supported [id number] Can be viewed in source system Missing Attachment - attachment storage system not supported [id number] Can be viewed in source system Missing Attachment - attachment storage system not supported [id number] Can be viewed in source system Main OR PACU I Recordon 11-06 Main OR PACU I Record Main OR PACU I Rec ord PACU Phase I Document Type FT Summary Primary Physician: Louise Whipple MD Finalized Date/Time: 11/16/23 14:06:18 Pt. Name: RYLEE ROPER Aguila/Sex: 1965 Female Med Rec #: [id number] Physician: Saima WATKINS, Paul Berrios Financial #: [id number] Pt. Type: O Room/Bed: / Admit/Disch: 11/16/23 [...] By: Colleen Hill RN 11/16/23 14:06 Normal [facility] Main OR Preoperative Recordo n 11-16-2023 Main OR Preoperative Record Main OR Preoperative Record Holding Area Document Type FT Summary Primary Physician: Louise Whipple MD Finalized Date/Time: 11/16/23 11:13:45 Pt. Name: RYLEE ROPER Elfego Sheehan/Sex: 1965 Female Med Rec #: [id number] Physician: Paul Landaverde MD Financial #: [id number] Pt. Type: O Room/Bed: / Admit/Disch: 11/16/23 10:50:09 - Institution: Case [facility] Holding FT Pre-Care Text: Verifies consent for planned procedure, identifies individual values and wishes concerning care, includes family members in perioperative teaching Secures patient's records' belongings, and valuables, maintains patient's dignity and privacy, and maintains patient confidentiality Entry 1 In Holding 11/16/23 11:08:00 Outcomes Met? Yes Last Modified By: Guanakito Richter RN 11/16/23 11:11:55 Post-Care Text: The patient [...] By: Guanakito Richter RN 11/16/23 11:13 Normal [facility] CHEMISTRYOrdered By: SYSTEM SYSTEM on 10-13-2022 Anion gap [Moles/Vol] 12 mmol/L Normal 6 - 16 mEq/L FT Remisol Calcium [Mass/Vol] 9.3 mg/dL Normal 8.9 - 11. 1 mg/dL [facility] Remisol Chloride [Moles/Vol] 108 mmol/L Normal 101 - 1 11 mmol/L [facility] Remisol CO2 [Moles/Vol] 24 mmol/L Normal 21 - 31 mmol/L FT Remisol Creatinine [Mass/Vol] 0.9 mg/dL Normal 0.5 - 1.3 mg/dL FT Remisol GFR/1.73 sq M.predicted among non-blacks MDRD (S/P/Bld) [Vol rate/Area] 75 mL/min/1.73 m2 Normal >=59mL/min /1.73 m2 [facility] Chem S Glucose [Mass/Vol] 115 mg/dL Normal [...] 39.6 % Normal 34.0 - 46.0 % FT HemeAutoSS Hemoglobin (Bld) [Mass/Vol] 13.5 g/dL Normal [...] [facility] HemeAutoSS CNOVon 08-07-2018 CNOV Office Visit ([facility]) ----- JACQUEILNRYLEE Elfego ([id number]) 1965 F Date Time Provider Department 08/07/18 11:30 AM SAMRA DUNN FERNANDO During your visit today, we recorded the following information about you: CALE Vargas 08/07/2018 12:45 PM Signed [facility] Consultation Note Genetic Counselor: Samra Dunn MS, [facility] Patient: Rylee Roper Patient Name and confirmed [...] appropriate standard National Comprehensive Cancer Network and [place] [employer] guidelines, with consideration of their [...] greater than 50% of which was spent [id number] counseling. This plan is being carried out per Dr. Yas Carlos's recommendations. This note will also be sent to the referring provider via the electronic medical record. Samra Dunn MS, [facility], Licensed Genetic Counselor [facility] CC: Dr. Alexey Carlos CC BY US MAIL: Harsh Martin [address] [place] [address] Referring Provider: SELF [200] Allergies As of Date: 08/07/2018 (Not on File) Date Reviewed: Never Reviewed Primary Visit Diagnosis:Family history of malignant neoplasm of breast [Z80.3] Problem List As Of Date: 08/07/2018 (None) Encounter Status:Closed by SAMRA DUNN on 08/07/18 [facility] PROGRESSon 08-07-2018 Protein mass conc HNO ID: [id number] Author: Samra Dunn Service: ? Author Type: Genetic Counselor Type: Progress Notes Filed: 08/07/2018 12:45 PM Note Text: [facility] Consultation Note Genetic Counselor: Samra Dunn, MS, [facility] Patient: Rylee Roper Patient Name and confirmed [...] appropriate standard National Comprehensive Cancer Network and [place] Cancer Society guidelines, with consideration of their [...] greater than 50% of which was spent [id number] counseling. This plan is being carried out per Dr. Yas Carlos's recommendations. This note will also be sent to the referring provider via the electronic medical record. Samra Dunn, MS, [facility], Licensed Genetic Counselor [facility] CC: Dr. Alexey Carlos CC BY US MAIL: Harsh Martin [address] [place] [address] [facility] Vital Signs Date Time Vital Sign Value Performing Clinician Facility 12-12-2024 12:55-0400 Body temperature 97.1 [degF] Dr. Marcelina Anderson MD Work Phone: [facility] 12-12-2024 12:55-0400 Diastolic blood pressure 70 mm[Hg] Dr. Marcelina Anderson MD Work Phone: [facility] 12-12-2024 12:55-0400 Heart rate 60 /min Dr. Marcelina Anderson MD Work Phone: [facility] 12-12-2024 12:55-0400 Respiratory rate 14 /min Dr. Marcelina Anderson MD Work Phone: [facility] 12-12-2024 12:55-0400 SaO2% (BldA) [Mass fraction] 95 % Dr. Marcelina Anderson MD Work Phone: [facility] 12-12-2024 12:55-0400 Systolic blood pressure 124 mm[Hg] Dr. Marcelina Anderson MD Work Phone: [facility] 12-12-2024 11:14-0400 Body height 165.[address] Marcelina Anderson MD Work Phone: [facility] 12-12-2024 11:14-0400 Body mass index (BMI) [Ratio] 42.2 kg/m2 Dr. Marcelina Anderson MD Work Phone: [facility] 12-12-2024 11:14-0400 Body weight [address] Marcelina Anderson MD Work Phone: [facility] 10-17-2024 11:04-0400 Body mass index (BMI) [Ratio] 44.4 kg/m2 Dr. Marcelina Anderson MD Work Phone: [facility] 10-17-2024 11:04-0400 Body weight 117.[address] Marcelina Anderson MD Work Phone: [facility] 10-17-2024 11:04-0400 Diastolic blood pressure 74 mm[Hg] Dr. Marcelina Anderson MD Work Phone: [facility] 10-17-2024 11:04-0400 Heart rate 73 /min Dr. Marcelina Anderson MD Work Phone: [facility] 10-17-2024 11:04-0400 Respiratory rate 18 /min Dr. Marcelina Anderson MD Work Phone: [facility] 10-17-2024 11:04-0400 SaO2% (BldA) [Mass fraction] 95 % Dr. Marcelina Anderson MD Work Phone: [facility] 10-17-2024 11:04-0400 Systolic blood pressure 144 mm[Hg] Dr. Marcelina Anderson MD Work Phone: [facility] 05-16-2024 13:41-0500 Body height 162.56 cm LOUISE WHIPPLE MD Work Phone: [facility] 05-16-2024 13:41-0500 Body mass index (BMI) [Ratio] 44.6 kg/m2 LOUISE WHIPPLE MD Work Phone: [facility] 05-16-2024 13:41-0500 Body weight 117.93 kg LOUISE WHIPPLE MD Work Phone: [facility] 05-16-2024 13:41-0500 Diastolic blood pressure 77 mm[Hg] LOUISE WHIPPLE MD Work Phone: [facility] 05-16-2024 13:41-0500 Systolic blood pressure 154 mm[Hg] LOUISE WHIPPLE MD Work Phone: [facility] 04-19-2024 13:35-0500 Body mass index (BMI) [Ratio] 43.9 kg/m2 LOUISE WHIPPLE MD Work Phone: [facility] 04-19-2024 13:35-0500 Body temperature 97.6 [degF] LOUISE WHIPPLE MD Work Phone: [facility] 04-19-2024 13:35-0500 Body weight 116.11 kg LOUISE WHIPPLE MD Work Phone: [facility] 04-19-2024 13:35-0500 Diastolic blood pressure 78 mm[Hg] LOUISE WHIPPLE MD Work Phone: [facility] 04-19-2024 13:35-0500 Heart rate 68 /min LOUISE WHIPPLE MD Work Phone: [facility] 04-19-2024 13:35-0500 Respiratory rate 16 /min LOUISE WHIPPLE MD Work Phone: [facility] 04-19-2024 13:35-0500 SaO2% (BldA) [Mass fraction] 97 % LOUISE WHIPPLE MD Work Phone: [facility] 04-19-2024 13:35-0500 Systolic blood pressure 120 mm[Hg] LOUISE WHIPPLE MD Work Phone: [facility] 12-23-2023 10:25-0400 Blood Pressure Location Louise Whipple [facility] 12-23-2023 10:25-0400 Diastolic blood pressure 83 mm[Hg] Louise Whipple [facility] 12-23-2023 10:25-0400 Heart rate 57 /min Mohamad Mouchli [facility] 12-23-2023 10:25-0400 Systolic blood pressure 152 mm[Hg] Mohamad Mouchli [facility] 11-16-2023 13:50-0400 Diastolic blood pressure 92 mm[Hg] Miller Sarmini [facility] 11-16-2023 13:50-0400 Heart rate 69 /min Miller Sarmini [facility] 11-16-2023 13:50-0400 Respiratory rate 13 /min Miller Sarmini [facility] 11-16-2023 13:50-0400 SaO2% (BldA) [Mass fraction] 95 % Miller Sarmini [facility] 11-16-2023 13:50-0400 Systolic blood pressure 159 mm[Hg] Miller Sarmini [facility] 11-16-2023 13:40-0400 Diastolic blood pressure 92 mm[Hg] Miller Sarmini [facility] 11-16-2023 13:40-0400 Heart rate 68 /min Miller Sarmini [facility] 11-16-2023 13:40-0400 Respiratory rate 18 /min Miller Sarmini [facility] 11-16-2023 13:40-0400 SaO2% (BldA) [Mass fraction] 95 % Miller Sarmini [facility] 11-16-2023 13:40-0400 Systolic blood pressure 159 mm[Hg] Miller Sarmini [facility] 11-16-2023 13:25-0400 Diastolic blood pressure 66 mm[Hg] Miller Sarmini [facility] 11-16-2023 13:25-0400 Heart rate 70 /min Miller Sarmini [facility] 11-16-2023 13:25-0400 Respiratory rate 16 /min Miller Sarmini [facility] 11-16-2023 13:25-0400 SaO2% (BldA) [Mass fraction] 95 % Miller Sarmini [facility] 11-16-2023 13:25-0400 Systolic blood pressure 142 mm[Hg] Miller Sarmini [facility] 11-16-2023 13:08-0400 Body temperature 98.24 [degF] Miller Sarmini [facility] 11-16-2023 13:00-0400 Respiratory rate 12 /min Miller Sarmini [facility] 11-16-2023 12:55-0400 Respiratory rate 19 /min Miller Sarmini [facility] 11-16-2023 12:50-0400 Respiratory rate 19 /min Miller Sarmini [facility] 11-16-2023 11:22-0400 Blood Pressure Location Miller Sarmini [facility] 11-16-2023 11:22-0400 Body temperature 96.8 [degF] Miller Sarmini [facility] 06-16-2023 10:53-0500 Diastolic blood pressure 86 mm[Hg] Susie German [facility] 06-16-2023 10:53-0500 Mean blood pressure 103 mm[Hg] Susie German [facility] 06-16-2023 10:53-0500 Systolic blood pressure 138 mm[Hg] Susie German [facility] 06-16-2023 10:48-0500 Blood Pressure Location Susie German [facility] 06-16-2023 10:48-0500 Body temperature 97.34 [degF] Susie German [facility] 06-16-2023 10:48-0500 Diastolic blood pressure 91 mm[Hg] Susie German [facility] 06-16-2023 10:48-0500 Heart rate 61 /min Susie German [facility] 06-16-2023 10:48-0500 Systolic blood pressure 139 mm[Hg] Susie German [facility] 12-14-2022 10:51-0400 Diastolic blood pressure 86 mm[Hg] Susie German [facility] 12-14-2022 10:51-0400 Mean blood pressure 103 mm[Hg] Susie German [facility] 12-14-2022 10:51-0400 Systolic blood pressure 138 mm[Hg] Susie German [facility] 12-14-2022 10:48-0400 Blood Pressure Location Susie German [facility] 12-14-2022 10:48-0400 Body temperature 96.98 [degF] Susie Porter [facility] 12-14-2022 10:48-0400 Diastolic blood pressure 93 mm[Hg] Susie Elizabethmetz [facility] 12-14-2022 10:48-0400 Heart rate 76 /min Susie Porter [facility] 12-14-2022 10:48-0400 Systolic blood pressure 149 mm[Hg] Susie Porter [facility] 09-15-2022 14:43-0400 Diastolic blood pressure 62 mm[Hg] Lemon SALAM [facility] 09-15-2022 14:43-0400 Heart rate 85 /min Lemon SALAM [facility] 09-15-2022 14:43-0400 Mean blood pressure 88 mm[Hg] Lemon SALAM [facility] 09-15-2022 14:43-0400 Respiratory rate 11 /min Lemon SALAM [facility] 09-15-2022 14:43-0400 SaO2% (BldA) [Mass fraction] 96 % Lemon SALAM [facility] 09-15-2022 14:43-0400 Systolic blood pressure 141 mm[Hg] Lemon SALAM [facility] 09-15-2022 14:30-0400 Diastolic blood pressure 80 mm[Hg] Lemon SALAM [facility] 09-15-2022 14:30-0400 Heart rate 89 /min Lemon SALAM [facility] 09-15-2022 14:30-0400 Mean blood pressure 98 mm[Hg] Lemon SALAM [facility] 09-15-2022 14:30-0400 Respiratory rate 12 /min Lemon SALAM [facility] 09-15-2022 14:30-0400 SaO2% (BldA) [Mass fraction] 95 % Lemon SALAM [facility] 09-15-2022 14:30-0400 Systolic blood pressure 135 mm[Hg] Lemon SALAM [facility] 09-15-2022 14:25-0400 Diastolic blood pressure 79 mm[Hg] Lemon SALAM [facility] 09-15-2022 14:25-0400 Heart rate 87 /min Lemon SALAM [facility] 09-15-2022 14:25-0400 Mean blood pressure 97 mm[Hg] Lemon SALAM [facility] 09-15-2022 14:25-0400 Respiratory rate 19 /min Lemon SALAM [facility] 09-15-2022 14:25-0400 SaO2% (BldA) [Mass fraction] 93 % Lemon SALAM [facility] 09-15-2022 14:25-0400 Systolic blood pressure 134 mm[Hg] Lemon SALAM [facility] 09-15-2022 14:18-0400 Body temperature 98.24 [degF] Lemon SALAM [facility] Comment on above: Result Comment: used a different thermom eter 09-15-2022 13:07-0400 Blood Pressure Location Lemon SALAM [facility] 09-15-2022 13:07-0400 Body temperature 96.8 [degF] Lemon SALAM [facility] 09-08-2022 21:29-0400 Diastolic blood pressure 96 mm[Hg] Kaylinn Dokken [facility] 09-08-2022 21:29-0400 Heart rate 71 /min Kaylinn Dokken [facility] 09-08-2022 21:29-0400 Respiratory rate 16 /min Kaylinn Dokken [facility] 09-08-2022 21:29-0400 SaO2% (BldA) [Mass fraction] 97 % Kaylinn Dokken [facility] 09-08-2022 21:29-0400 Systolic blood pressure 167 mm[Hg] Kaylinn Dokken [facility] 09-08-2022 20:48-0400 Body temperature 98.96 [degF] Kaylinn Dokken [facility] 09-08-2022 20:48-0400 Diastolic blood pressure 94 mm[Hg] Kaylinn Dokken [facility] 09-08-2022 20:48-0400 Heart rate 76 /min Kaylinn Dokken [facility] 09-08-2022 20:48-0400 Respiratory rate 16 /min Kaylinn Dokken [facility] 09-08-2022 20:48-0400 SaO2% (BldA) [Mass fraction] 99 % Kaylinn Dokken [facility] 09-08-2022 20:48-0400 Systolic blood pressure 169 mm[Hg] Alok Willson [facility] 02-18-2022 12:56-0400 Diastolic blood pressure 82 mm[Hg] Lemon SALAM [facility] 02-18-2022 12:56-0400 Mean blood pressure 104 mm[Hg] Lemon SALAM [facility] 02-18-2022 12:56-0400 Systolic blood pressure 148 mm[Hg] Lemon SALAM [facility] 02-18-2022 12:54-0400 Blood Pressure Location Lemon SALAM [facility] 02-18-2022 12:54-0400 Diastolic blood pressure 84 mm[Hg] Lemon SALAM [facility] 02-18-2022 12:54-0400 Heart rate 68 /min Lemon SALAM [facility] 02-18-2022 12:54-0400 Respiratory rate 16 /min Lemon SALAM [facility] 02-18-2022 12:54-0400 Systolic blood pressure 152 mm[Hg] Lemon SALAM [facility] Encounters Encounter Date Encounter Type Care Provider Facility Start: 12-12-2024 ambulatory Marcelina Anderson Facility :[facility] Start: 12-12-2024 Non-patient / Non-visit Rishi Tse DO -[facility] Start: 12-12-2024 End: 12-12-2024 Admission to same day surgery center Rishi Tse DO -Endoscopy Work Phone: Start: 12-12-2024 End: 12-12-[address] Marcelina Anderson MD Work Phone: -Endoscopy Start: 10-17-2024 End: 10-17-2024 Patient encounter procedure Jayashree CATES -[facility] Work Phone: Start: 10-17-2024 End: 10-17-[address] Marcelina Anderson MD Work Phone: [facility] Work Phone: Start: 07-03-2024 End: 07-03-2024 ambulatory LOUISE WHIPPLE MD Work Phone: [facility] Work Phone: Start: 07-03-2024 End: 07-03-2024 Patient encounter procedure Gladis CATES -[facility] Work Phone: Start: 07-03-2024 End: 07-03-2024 ambulatory Marcelina Anderson Facility:[facility] Start: 05-16-2024 End: 05-16-2024 Patient encounter procedure Gladis CATES -[facility] Work Phone: Start: 05-16-2024 End: 05-16-2024 Patient encounter status Gladis CATES [facility] Start: 05-16-2024 End: 05-16-2024 ambulatory Marcelina Hernandezlay Facility:[facility] Start: 04-19-2024 End: 04-19-[address] Marcelina Anderson MD -[facility] Work Phone: Start: 04-19-2024 End: 04-19-2024 ambulatory Marcelina [place] Facility:[facility] Start: 04-02-2024 End: 04-02-2024 Patient encounter procedure LOUISE WHIPPLE MD -Ultrasound, [facility] Work Phone: Start: 04-02-2024 End: 04-02-2024 ambulatory LOUISE WHIPPLE Facility:[facility] Start: 12-28-2023 End: 01-07-2024 Pre-admission assessment Louise Whipple [facility] Start: 12-23-2023 End: 12-23-2023 ambulatory Louise Whipple Facility:[facility] Start: 12-23-2023 End: 12-23-2023 Patient encounter procedure Louise Whipple [facility] Start: 11-16-2023 End: 11-16-2023 ambulatory Paul Ackermani Facility:[facility] Start: 11-16-2023 End: 11-16-2023 Patient encounter procedure Paul Landaverde [facility] Start: 08-16-2023 End: 08-16-2023 ambulatory OLGA BRIAN Not Available Start: 06-30-2023 End: 06-30-2023 Patient encounter procedure Leidy Hassan [facility] Start: 06-16-2023 End: 06-16-2023 Patient encounter procedure Susie Porter [facility] Start: 04-27-2023 End: 04-27-2023 ambulatory MITESH B MINI Not Available Start: 04-13-2023 End: 04-13-2023 ambulatory MITESH B MINI Not Available Start: 03-30-2023 End: 03-30-2023 ambulatory MITESH B MINI Not Available Start: 03-23-2023 End: 03-23-2023 ambulatory MITESH B MINI Not Available Start: 12-14-2022 End: 12-14-2022 Patient encounter procedure Susie Porter [facility] Start: 10-13-2022 ambulatory Facility:[id number] Start: 10-13-2022 End: 10-13-2022 Patient encounter procedure Olga Diana Derrick [facility] Start: 09-15-2022 End: 09-15-2022 Patient encounter procedure Lemon ASA [facility] Start: 09-08-2022 End: 09-08-2022 Emergency department patient visit Alok Willson [facility] Start: 08-30-2022 End: 08-30-2022 Patient encounter procedure Mike Peralta III [facility] Start: 06-28-2022 End: 06-28-2022 Patient encounter procedure Leidy Hassan [facility] Start: 02-18-2022 End: 07-04-2022 Recurring Ion MENDIETA [facility] Start: 02-18-2022 End: 04-13-2022 Pre-admission assessment Lemonmichelle MENDIETA [facility] Start: 02-18-2022 End: 02-18-2022 Patient encounter procedure Lemon TREBETITO [facility] Start: 08-07-2018 End: 08-08-2018 [facility] Procedures Date Procedure Procedure Detail Performing Clinician Start: 12-12-[address] Marcelina Anderson MD Work Phone: Start: 07-03-2024 Screening mammography LOUISE WHIPPLE MD Work Phone: Start: 04-02-2024 US scan of thyroid LOUISE WHIPPLE MD Work Phone: Start: 11-16-2023 Colonoscopy Paul Landaverde Start: 11-16-2023 Esophagogastroduodenoscopy Paul carrillo Start: 09-15-2022 Colonoscopy Lemon SALAM Start: 09-15-2022 Esophagogastroduodenoscopy Lemon SALAM Start: 05-01-2013 hysteroscopy, dilation and curettage ablation Lemon SALAM d&c 1 [facility] Comment on above: x2 for misscarriage. Screening for malign ant neoplasm of cervix Z12.4 - Encounter for screening for malignant neoplasm of cervix LOUISE WHIPPLE MD Work Phone: Plan of Treatment Date Care Activity Detail Author Start: 12-12-2024 Patient discharge [facility] Start: 04-19-2024 Patient referral [facility] Work Phone: Patient referral [facility] Work Phone: Immunizations Immunization Date Immunization Notes Care Provider [facility] 01-20-2024 zoster vaccine recombinant LOUISE WHIPPLE MD Work Phone: [facility] 08-16-2023 zoster vaccine recombinant Louise Whipple [facility] NEGATED: Highlighted row has not occurred!12-23-2023 influenza virus vaccine, unspecified formulation Louise Whipple [facility] NEGATED: Highlighted row has not occurred!02-18-2022 influenza virus vaccine, unspecified formulation Ion [facility] Payers Date Payer Category Payer Self-pay 2024 Unknown [id number] 2023 Unknown 2022 Unknown [id number] 1965 Unknown [id number] 2.16. [id number] 1965 Unknown [id number] 2.16.84 [id number] 1965 Unknown [id number] 2.16.840 .1.516481.3.579.2.1259 1965 Unknown [id number] 2.16.840 .1.582371.3.579.2.1259 1965 Unknown [id number] 2.16.840 .1.741344.3.579.2.1259 1965 Unknown [id number] 2.16.840 .1.214542.3.579.2.1259 1965 Unknown [id number] 2.16.8 40.1.558595.3.579.2.727 1965 Unknown [id number] 2.16.8 40.1.904368.3.579.2.727 Unknown [id number] Unknown [id number] 2.16.8 40.1.176056.3.579.2.462 Unknown [id number] 2.16.8 40.1.491155.3.579.2.462 Unknown [id number] .16.8 [id number] Unknown [id number] 2.16.8 40.1.242781.3.579.2.462 Unknown [id number] 2.16.8 40.1.261394.3.579.2.462 Unknown [id number] 2.16.8 [id number] Unknown [id number] 2.16.8 [id number] Social History Date Type Detail Facility Start: 02-18-2022 End: 12-10-2024 Tobacco smoking status Never smoked tobacco (finding) [facility] Sex Assigned At Female [facility] Start: 07-16-2024 Sex Female (finding) [facility] Start: 1965 Sex Assigned At Female W [facility] Medical Equipment Procedure Code Equipment Code Equipment [...] 09/15/22 Non Biological Unknown FDA Start: 09-15-2022 Goals Date Patient Goal Desired Activity /State Functional Status Date Assessment Result Facility 12-23-2023 Functional Status N/A [facility] 11-16-2023 Functional Status N/A [facility] 06-16-2023 Functional Status N/A [facility] 12-14-2022 Functional Status N/A [facility] 09-15-2022 Functional Status N/A [facility] 09-08-2022 Functional Status N/A [facility] 02-18-2022 Functional Status N/A [facility] Mental Status Date Assessment Result Facility 12-12-2024 Cognitive function Level Of Consciousness Sedated [facility] Work Phone: 12-12-2024 Cognitive function Voice/Name [facility] Work Phone: Clinical Notes 09-08-2022 to 12-12-2024 Note Date & Type Note Facility 12-12-2024 Consult note Note Date/Time December 12, 2024 10:51am [facility] Medical Records Department [address] [place] [address] Pre-Anesthesia Evaluation 12/12/24 1051 MR#: [id number] Acct: [id number] Name: RYLEE ROPER Rep #:[id number] : 1965 59 From: Ray Kong MD PCP: Dr. Marcelina Anderson MD Status:REG SDC Y Race: C Location: EN ASA Classification* ASA Classification ASA Classification: 2 Assessment & Plan Anesthesia* Anesthesia Assessment Anesthesia Assessment: Discussed sedation and/or anesthesia options, risks, benefits, and alternatives with patient/parents/legal guardian/POA. Questions invited. The patient/parents/legal guardian/POA seems to understand and agrees to proceedwith anesthesia plan. Reviewed the physical assessment, medical history, allergy history and patient home medications list prior to surgery/procedure/anesthetic and documented any changes. Performed airway and anesthesia risk assessments. 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 When Was Last Pacemaker Check QUESTION #4 FULL TEXT: You/Your Family Experience fever (hyperthermia) with Anesthesia Last Oral Intake Last Oral intake: Last Oral Intake NPO since Meds taken in AM with sips of water? Meds patient instructed to take am of surgery PONV PONV - emergency dispatch operator: PONV - emergency dispatch operator Female Yes 12/10/24 10:15 HX of Motion Sickness Yes 12/10/24 10:15 HX of N/V After Surgery No 12/10/24 10:15 Non-Smoker Yes 12/10/24 10:15 Duration of Surgery greater No 12/10/24 10:15 than 60 minutes Number of Risk Factors 3 12/10/24 10:15 PONV Score Moderate Risk 12/10/24 10:15 Height & Weight Height & Weight: Anesthesia: Height & Weight Height 5 ft 4 in 10/17/24 11:04 Respiratory Assessment Respiratory Assessment - emergency dispatch operator: Respiratory Tract Infection Hx - emergency dispatch operator Hx Respiratory Tract Infection No 12/10/24 10:15 STOP Sleep Apnea STOP Sleep Apnea - emergency dispatch operator: STOP Sleep Apnea - emergency dispatch operator Hx Hypertension Yes 12/10/24 10:15 Hx Sleep Apnea No 12/10/24 10:15 CPAP BIPAP Do you snore loudly (louder No 12/10/24 10:15 than talking or can be heard Do you often feel tired/ No 12/10/24 10:15 fatigued/ sleepy during daytime? Has anyone observed you stop No 12/10/24 10:15 breathing during sleep? STOP Results Negative 12/10/24 10:15 QUESTION #5 FULL TEXT : Do you snore loudly (louder than talking or can be heard through closed doors)? 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 Specify any problems Hx of Preganancy in last 3 No 12/10/24 10:15 Months Nurse Filling Out Transfusion MGRIFFITH 12/10/24 10:15 & Questions: Date: 12/10/24 12/10/24 10:15 Time: 10:15 12/10/24 10:15 Patient unable to answer at this time (ie. confused, unrespo /Reproduction History /Reproductive History - emergency dispatch operator: /Reproductive Hx- emergency dispatch operator Hx Now No 12/10/24 10:15 Gestational Age (in weeks): EDC: Hx Hx Para Hx Section SAB No 12/10/24 10:15 Active Medications Active Medications: Current Medications Generic Name Dose Route Start Last Admin Trade Name Freq PRN Reason Stop Dose Admin Lactated Ringer's 1,000 mls @ 15 mls/hr 12/12/24 10:45 IV .Q48H GEM PFSH Medical History Wears glasses MRSA infection Gastric reflux Non-smoker Monoallelic mutation of MUTYH gene Anxiety Vision problems Thyroid disease GERD (gastroesophageal reflux disease) High blood pressure Breast lump Back problem Arthritis Seasonal allergies Home Medications ?Medication ?Instructions ?Recorded ?Last Taken ?Type calcium carbonate 600 mg PO QDAY 04/19/24 Unkn own History nnqeqjyctwj-szo-fnpsqalca-hrb 1 tab PO DAILY 04/19/24 Unknown History 149-hyalur 500 mg-500 mg-66.7 mg tablet (Aiepuasjkjd-Rlrvtzevhiv-CXV (with antiox)) montelukast 10 mg tablet 10 mg PO QDAY 04/19/24 Unkno wn History citalopram 20 mg tablet (Celexa) 40 mg PO QDAY 5 Unknown History lisinopril 10 mg tablet 10 mg PO QDAY #90 tabs 05/22 Unknown Rx fexofenadine 60 mg tablet (Jaz 180 mg PO QDAY 10/07 06/02 Unknown History Allergy) magnesium 250 mg tablet 400 mg PO QDAY 10/17/24 Unkn own History meloxicam 15 mg tablet 15 mg PO QDAY PRN pain 10/17 Unknown History metoprolol succinate 50 mg 50 mg PO QDAY #90 tabs 10/08 09/30 Unknown Rx tablet,extended release 24 hr levothyroxine 50 mcg tablet 50 mcg PO QDAY #90 tabs Unknown Rx (Synthroid) Allergy/AdvReac Type Severity Reaction Status Date / Time cefdinir (From Omnicef) Allergy Mild unknown Verified 12/07/24 11:23 Family History Father Heart disease Arthritis Cancer [...] Hypertension Grandfather Myocardial infarction Aunt Breast cancer Surgical History History of D&C H/O colonoscopy H/O lateral meniscus repair of left knee History of surgery Social History household members: spouse housing: house current occupational status: employed 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 12/12/24 1051 <Electronically signed by Ray Kong MD > Date _ Ray Kong MD Cosigner Signature: Date CC: ~ Signed [facility] Work Phone: 1(915) 582-823508-06-2025 Consult note [facility] Medical Records Department [address] [place] [address] Anesthesia Postop Eval I 12/12/24 1244 MR#: [id number] Acct: [id number] Name: RYLEE ROPER Rep #:[id number] : 1965 59 From: Sebastian Sanchez PCP: Dr. Marcelina Anderson MD Status:REG SDC Y Race: C Location: [place] [address] Anesthesia: Postop Eval I Current Vital Signs Temperature: 97.4 F Pulse Rate: 61 Blood Pressure: 121/65 Respiratory Rate: 16 Pulse Ox: 96 Oxygen Delivery Method: Room Air Assessment Airway patent: Yes Spontaneous unlabored respirations: Yes Mental status: Asleep nausea: No Vomiting: No Anesthesia Complication: No Fluid Hydration Crystalloid volume administer (ml): 600 Total IV fluid infused: 600 Progress Note Anesthesia document: Postop Eval 1 completed: Yes 12/12/24 1245 > Date _ Sebastian Nguyen Signature: Date CC: ~ Signed [facility]08-06-2025 Procedure note [facility] Medical Records Department [address] [place] [address] Colonoscopy Report MR#: [id number] Acct: [id number] Name: RYLEE ROPER Rep #:[id number] : 1965 59 From: Rishi Tse DO PCP: Dr. Marcelina Anderson MD Status:[facility] Patient Name: Rylee Roper Procedure Date: 12/12/2024 12:26 PM Date of : 1965 Age: 59 Procedure: Colonoscopy Indications: Screening for colorectal malignant neoplasm Providers: Rishi Tse DO Medicines: Monitored Anesthesia Care Patient Profile: This is a 59 year old female. Refer to note in patient chart for documentation of history and physical. Patient has symptoms of chronic heartburn. Last Colonoscopy: several years ago. Complications: No immediate complications. Procedure: Pre-Anesthesia Assessment: - Prior to the procedure, a History and Physical was performed, and patient medications and allergies were reviewed. The patient is competent. The risks and benefits of the procedure and the sedation options and risks were discussed with the patient. All questions were answered and informed consent was obtained. Patient identification and proposed procedure were verified by the physician in the pre-procedure area. Mental Status Examination: alert and oriented. Airway Examination: normal oropharyngeal airway and neck mobility. Respiratory Examination: clear to auscultation. CV Examination: normal. Prophylactic Antibiotics: The patient does not require prophylactic antibiotics. Prior Anticoagulants: The patient has taken no anticoagulant or antiplatelet agents except for NSAID medication. ASA Grade Assessment: II - A patient with mild systemic disease. After reviewing the risks and benefits, the patient was deemed in satisfactory condition to undergo the procedure. The anesthesia plan was to use monitored anesthesia care (MAC). Immediately prior to administration of medications, the patient was re-assessed for adequacy to receive sedatives. The heart rate, respiratory rate, oxygen saturations, blood pressure, adequacy of pulmonary ventilation, and response to care were monitored throughout the procedure. The physical status of the patient was re-assessed after the procedure. After I obtained informed consent, the scope was passed under direct vision. Throughout the procedure, the patient's blood pressure, pulse, and oxygen saturations were monitored continuously. The Colonoscope was introduced through the anus and advanced to the cecum, identified by appendiceal orifice and ileocecal valve. The colonoscopy was performed without difficulty. The patient tolerated the procedure well. The quality of the bowel preparation was adequate. The ileocecal valve, appendiceal orifice, and rectum were photographed. Scope In: 12:27:21 PM Scope Withdrawal Time 0 hours 5 minutes 12 seconds Scope Out: 12:35:48 PM Total Procedure Duration Time 0 hours 8 minutes 27 seconds Findings: The perianal and digital rectal examinations were normal. A few small-mouthed diverticula were found in the recto-sigmoid colon and sigmoid colon. Impression: - Diverticulosis in the recto-sigmoid colon and in the sigmoid colon. - No specimens collected. Recommendation: - Discharge patient to home. - Resume previous diet. - Continue present medications. - Repeat colonoscopy. Procedure Code(s): --- Professional --- 52289, Colonoscopy, flexible; diagnostic, including collection of specimen(s) by brushing or washing, when performed (separate procedure) CPT copyright 2021 [employer]. All rights reserved. The codes documented in this report are preliminary and upon spool sorter review may be revised to meet current compliance requirements. Rishi Tse DO 12/12/2024 12:43:54 PM This report has been signed electronically. Number of Addenda: 0 Note Initiated On: 12/12/2024 12:26 PM 12/12/241242 Date _ Rishi Quiroga Signature: Date (if indicated) CC: Dr. Marcelina Anderson MD; Rishi Tse DO ~ Date Dictated: 12/12/24 1226 Date Transcribed: Interface Designer: RF Signed [facility]08-06-2025 Procedure note [facility] Medical Records Department [address] [place] [id number] Provation Physician Letter MR#: [id number] Acct: [id number] Name: RYLEE ROPER Rep #:[id number] : 1965 59 From: Rishi Tse DO PCP: Dr. Marcelina Anderson MD [place] [place]/12/2024 Marcelina Anderson Md Re : Colonoscopy procedure for Rylee Roper Dear Monica This procedure was performed on Thursday, December 12, 2024. My impressions and recommendations are as follows: Impressions : - Diverticulosis in the recto-sigmoid colon and in the sigmoid colon. - No specimens collected. Recommendations : - Discharge patient to home. - Resume previous diet. - Continue present medications. - Repeat colonoscopy. My findings are described in the full procedure note, which is enclosed. If I can be of further assistance, please feel free to contact me at . Sincerely, Rishi Tse DO 12/12/2024 12:43:54 PM This report has been signed electronically. 12/12/241242 Date _ Rishi Friend DO Cosigner Signature: Date (if indicated) CC: Dr. Marcelina Anderson MD; Rishi Tse DO ~ Date Dictated: 12/12/24 1226 Date Transcribed: Interface Designer: RF Signed [facility]08-06-2025 Procedure note [facility] Medical Records Department [address] [place] [address] EGD Report MR#: [id number] Acct: [id number] Name: RYLEE ROPER Rep #:[id number] : 1965 59 From: Rishi Tse DO PCP: Dr. Marcelina Anderson MD [place] Patient Name: Rylee Roper Procedure Date: 12/12/2024 12:15 PM Date of : 1965 Age: 59 Procedure: Upper GI endoscopy Indications: Esophageal reflux Providers: Rishi Tse DO Medicines: Monitored Anesthesia Care Patient Profile: This is a 59 year old female. Refer to note in patient chart for documentation of history and physical. Patient has symptoms of chronic heartburn. Complications: No immediate complications. Procedure: Pre-Anesthesia Assessment: - Prior to the procedure, a History and Physical was performed, and patient medications and allergies were reviewed. The patient is competent. The risks and benefits of the procedure and the sedation options and risks were discussed with the patient. All questions were answered and informed consent was obtained. Patient identification and proposed procedure were verified by the physician in the pre-procedure area. Mental Status Examination: alert and oriented. Airway Examination: normal oropharyngeal airway and neck mobility. Respiratory Examination: clear to auscultation. CV Examination: normal. Prophylactic Antibiotics: The patient does not require prophylactic antibiotics. Prior Anticoagulants: The patient has taken no anticoagulant or antiplatelet agents except for NSAID medication. ASA Grade Assessment: II - A patient with mild systemic disease. After reviewing the risks and benefits, the patient was deemed in satisfactory condition to undergo the procedure. The anesthesia plan was to use monitored anesthesia care (MAC). Immediately prior to administration of medications, the patient was re-assessed for adequacy to receive sedatives. The heart rate, respiratory rate, oxygen saturations, blood pressure, adequacy of pulmonary ventilation, and response to care were monitored throughout the procedure. The physical status of the patient was re-assessed after the procedure. After obtaining informed consent, the endoscope was passed under direct vision. Throughout the procedure, the patient's blood pressure, pulse, and oxygen saturations were monitored continuously. The Colonoscope was introduced through the mouth, and advanced to the second part of duodenum. The upper GI endoscopy was accomplished without difficulty. The patient tolerated the procedure well. Scope In: 12:23:37 PM Scope Out: 12:26:01 PM Total Procedure Duration Time 0 hours 2 minutes 24 seconds Findings: The Z-line was irregular and was found 40 cm from the incisors. Biopsies were taken with a cold forceps for histology. A few diminutive hyperplastic polyps with no bleeding and no stigmata of recent bleeding were found in the gastric fundus and in the gastric body. No gross lesions were noted in the entire examined duodenum. Impression: - Z-line irregular, 40 cm from the incisors. Biopsied. - A few gastric polyps. - No gross lesions in the entire examined duodenum. Recommendation: - Await pathology results. - Repeat upper endoscopy for surveillance. - Continue present medications. Procedure Code(s): --- Professional --- 56125, Esophagogastroduodenoscopy, flexible, transoral; with biopsy, single or multiple CPT copyright 2021 [employer]. All rights reserved. The codes documented in this report are preliminary and upon spool sorter review may be revised to meet current compliance requirements. Rishi Tse DO 12/12/2024 12:41:49 PM This report has been signed electronically. Number of Addenda: 0 Note Initiated On: 12/12/2024 12:15 PM 12/12/24 1242 Date _ Rishi Quiroga Signature: Date (if indicated) CC: Dr. Marcelina Anderson MD; Rishi Tse DO ~ Date Dictated: 12/12/24 1215 Date Transcribed: Interface Designer: RF Signed [facility]08-06-2025 Procedure note [facility] Medical Records Department [address] [place] [address] Provation Physician Letter MR#: [id number] Acct: [id number] Name: RYLEE ROPER Rep #:[id number] : 1965 59 From: Rishi Tse DO PCP: Dr. Marcelina Anderson MD [place] 12/12/2024 Marcelina Anderson Md Re : Upper GI endoscopy procedure for Rylee Roper Dear Monica This procedure was performed on Tuesday, December 12, 2024. My impressions and recommendations are as follows: Impressions : - Z-line irregular, 40 cm from the incisors. Biopsied. - A few gastric polyps. - No gross lesions in the entire examined duodenum. Recommendations : - Await pathology results. - Repeat upper endoscopy for surveillance. - Continue present medications. My findings are described in the full procedure note, which is enclosed. If I can be of further assistance, please feel free to contact me at . Sincerely, Rishi Tse DO 12/12/2024 12:41:49 PM This report has been signed electronically. 12/12/24 1242 Date _ Rishi Quiroga Signature: Date (if indicated) CC: Dr. Marcelina Andersno MD; Rishi Tse DO ~ Date Dictated: 12/12/24 1215 Date Transcribed: Interface Designer: RF Signed [facility]08-06-2025 History and physical note [facility] Medical Records Department [address] [place] [address] History & Physical Exam 12/12/24 1143 MR#: [id number] Acct: [id number] Name: RYLEE ROPER Rep #:[id number] : 1965 59 From: Rishi Tse DO PCP: Dr. Marcelina Anderson MD Status:[facility] Location: [place] [address] HPI - General General Date of Admission: 01/09/25 Date of Service: 12/12/24 Chief Complaint: GERD and family history of colon cancer HPI Narrative RYLEE ROPER, is a 59 F who presents Chief Complaint: Photo surveillance of GERD and family history of colon cancer 1st cousin with colon CA at an [...] disease - non-smoker - rare EtOH use PFSH Medical History Wears glasses MRSA infection Gastric reflux Non-smoker Monoallelic mutation of MUTYH gene Anxiety Vision problems Thyroid disease GERD (gastroesophageal reflux disease) High blood pressure Breast lump Back problem Arthritis Seasonal allergies Home Medications ?Medication ?Instructions ?Recorded ?Last Taken ?Type calcium carbonate 600 mg PO QDAY 04/19/2409/30 History wktbjqkztls-wlk-bobngbmwi-hrb 1 tab PO DAILY 04/19/24 12/11/24 History 149-hyalur 500 mg-500 mg-66.7 mg tablet (Nxdgxlhvzjg-Msvfjhuffsm-QKF (with antiox)) montelukast 10 mg tablet 10 mg PO QDAY 04/19/2412/11 History citalopram 20 mg tablet (Celexa) 40 mg PO QDAY 5 12/11/24 History lisinopril 10 mg tablet 10 mg PO QDAY #90 tabs 05/2212/12/24 06:30 Rx fexofenadine 60 mg tablet (Jaz 180 mg PO QDAY 10/0712/11/24 History Allergy) magnesium 250 mg tablet 400 mg PO QDAY 10/17/24 0809/30 History meloxicam 15 mg tablet 15 mg PO QDAY PRN pain 10/1712/11/24 History metoprolol succinate 50 mg 50 mg PO QDAY #90 tabs 10/0812/12/24 06:30 Rx tablet,extended release 24 hr levothyroxine 50 mcg tablet 50 mcg PO QDAY #90 tabs 12/11/24 Rx (Synthroid) Allergy/AdvReac Type Severity Reaction Status Date / Time cefdinir (From Omnicef) Allergy Mild unknown Verified 12/07/24 11:23 Family History Father Heart disease Arthritis Cancer [...] Hypertension Grandfather Myocardial infarction Aunt Breast cancer Surgical History History of D&C H/O colonoscopy H/O lateral meniscus repair of left knee History of surgery Social History household members: spouse housing: house current occupational status: employed current occupation: [employer], Smoking Status: Never smoker alcohol intake: current alcohol intake frequency: holidays/special occasions only substance use type: does not use what type of physical activity do you participate in: none seatbelt use: always do you feel safe at home: Yes 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) ROS Constitutional Constitutional: Denies fatigue, fever(s), poor appetite, weight gain or weight loss Gastrointestinal Gastrointestinal: Denies belching, bloating, change in bowel habits, change in stool character, chewing difficulty, coffee ground emesis, constipation, cramping, diarrhea, dyspepsia, dysphagia, earlysatiety, excessive flatus, fecalincontinence, heartburn, hematemesis, hematochezia, hemorrhoids, loose stools, melena, nausea, odynophagia, rectal bleeding, tenesmus, vomiting or weight changes Vital Signs Vital Signs Vital Signs: 12/12/24 11:14 12/12/24 11:14 Temperature 97.1 F L Temperature Source Temporal Pulse Rate 74 Respiratory Rate 16 Respiratory Pattern Normal Blood Pressure 153/90 H Blood Pressure Mean 111 Blood Pressure Source Monitor Blood Pressure Position Sitting Blood Pressure Location Right Arm Pulse Ox 100 Oxygen Delivery Method Room Air Weight Weight: 253 lb 8.505 oz Body Mass Index (BMI) 42.2 Physical Exam Const alert, oriented x3, no apparent distress and healthy appearing General Appearance: cooperative GI normal to inspection, nondistended, normoactive bowel sounds, soft to palpation,non-tender and non-distended Percussion: normal to percussion Rectal Exam: deferred Assessment & Plan Assessment/Plan (1) GERD (gastroesophageal reflux disease): (2) H/O colonoscopy: (3) Monoallelic mutation of MUTYH gene: PLAN: Assessment and Plan Assessment and Plan (1) Monoallelic mutation of MUTYH gene: Status: Acute Comment: Genetic testing 08/15/2018, MUTYH, c.536A>G ([id number]). 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 Her last procedures were performed November 2023 and I have requested a copy of her previous procedure reports. She alsoreports a history of GERD with schatzki's ring, last dilation approximately 3 years ago. HB symptoms are infrequent and is taking PPI PRN. She reports only experiencing dysphagia with cold liquids and drinking fast; denies any dysphagia to solids. She will proceed with bidirectional endoscopies. Note: [employer] speech recognition sales receptionist software was used to create portions of this document. Sound-alike and misspelled words, as well as other sales receptionist errors may be contained in the documentation. Patient Instructions: Colon & EGD - Miralax prep 12/12/24 1145 Cosigner Signature (if applicable): CC: Dr. Marcelina Anderson MD; Rishi Tse DO~ Signed [facility]08-06-2025 [facility] Medical Records Department [address] [place] [address] History Physical Exam 12/12/24 1143 MR#: [id number] Acct: [id number] Name: RYLEE ROPER Rep #: [id number] : 1965 59 From: Rishi Tse DO PCP: Dr. Marcelina Anderson MD [place] [place]: [place] [address] HPI - General General Date of Admission: 01/09/25 Date of Service: 12/12/24 Chief Complaint: GERD and family history of colon cancer HPI Narrative RYLEE ROPER, is a 59 F who presents Chief Complaint: Photo surveillance of GERD and family history of colon cancer 1st cousin with colon CA at an [...] disease - non-smoker - rare EtOH use PFSH Medical History Wears glasses MRSA infection Gastric reflux Non-smoker Monoallelic mutation of MUTYH gene Anxiety Vision problems Thyroid disease GERD (gastroesophageal reflux disease) High blood pressure Breast lump Back problem Arthritis Seasonal allergies Home Medications ???Medication ???Instructions ???Recorded ???Last Taken ???Type calcium carbonate 600 mg PO QDAY 04/19/24 12/11/24 H istory icfmjzkqxro-osw-fsyqqhbso-hrb 1 tab PO DAILY 04/19/24 12/11/24 H istory 149-hyalur 500 mg-500 mg-66.7 mg tablet (Cwrhdcxuhvx-Gvocxikoxns-FHP (with antiox)) montelukast 10 mg tablet 10 mg PO QDAY 04/19/24 12/11/24 Hi story citalopram 20 mg tablet (Celexa) 40 mg PO QDAY 05/16/24 12/11/24 Hi story lisinopril 10 mg tablet 10 mg PO QDAY #90 tabs 05/22/24 06:30 Rx fexofenadine 60 mg tablet (Jaz 180 mg PO QDAY 10/17/24 12/11/24 History Allergy) magnesium 250 mg tablet 400 mg PO QDAY 10/17/24 12/11/24 H istory meloxicam 15 mg tablet 15 mg PO QDAY PRN pain 10/17/24 History metoprolol succinate 50 mg 50 mg PO QDAY #90 tabs 10/31/24 06:30 Rx tablet,extended release 24 hr levothyroxine 50 mcg tablet 50 mcg PO QDAY #90 tabs 11/01/24 0 12/11/24 Rx (Synthroid) Allergy/AdvReac Type Severity Reaction Status Date / Time cefdinir (From [employer]Gran[employer]) Allergy Mild unknown Verified 12/07/24 11:23 Family History Father Heart disease Arthritis Cancer [...] Hypertension Grandfather Myocardial infarction Aunt Breast cancer Surgical History History of D C H/O colonoscopy H/O lateral meniscus repair of left knee History of surgery Social History household members: spouse housing: house current occupational status: employed current occupation: [employer], Smoking Status: Never smoker alcohol intake: current alcohol intake frequency: holidays/special occasions only substance use type: does not use what type of physical activity do you participate in: none seatbelt use: always do you feel safe at home: Yes 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) ROS Constitutional Constitutional: Denies fatigue, fever(s), poor appetite, weight gain or weight loss Gastrointestinal Gastrointestinal: Denies belching, bloating, change in bowel habits, change in stool character, chewing difficulty, coffee ground emesis, constipation, cramping, diarrhea, dyspepsia, dysphagia, early satiety, excessive flatus, fecal incontinence, heartburn, hematemesis, hematochezia, hemorrhoids, loose stools, melena, nausea, odynophagia, rectal bleeding, tenesmus, vomiting or weight changes Vital Signs Vital Signs Vital Signs: 12/12/24 11:14 12/12/24 11:14 Temperature 97.1 F L Temperature Source Temporal Pulse Rate 74 Respiratory Rate 16 Respiratory Pattern Normal Blood Pressure 153/90 H Blood Pressure Mean 111 Blood Pressure Source Monitor Blood Pressure Position Sitting Blood Pressure Location Right Arm Pulse Ox 100 Oxygen De (more content not included)...[facility]08-06-2025 Consult note [facility] Medical Records Department [address] [place] [address] Pre-Anesthesia Evaluation 12/12/24 1051 MR#: [id number] Acct: [id number] Name: RYLEE ROPER Rep #:[id number] : 1965 59 From: Ray Knog MD PCP: Dr. Marcelina Anderson MD [place] [place] Race: C Location: EN ASA Classification* ASA Classification ASA Classification: 2 Assessment & Plan Anesthesia* Anesthesia Assessment Anesthesia Assessment: Discussed sedation and/or anesthesia options, risks, benefits, and alternatives with patient/parents/legal guardian/POA. Questions invited. The patient/parents/legal guardian/POA seems to understand and agrees to proceedwith anesthesia plan. Reviewed the physical assessment, medical history, allergy history and patient home medications list prior to surgery/procedure/anesthetic and documented any changes. Performed airway and anesthesia risk assessments. 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 When Was Last Pacemaker Check QUESTION #4 FULL TEXT: You/Your Family Experience fever (hyperthermia) with Anesthesia Last Oral Intake Last Oral intake: Last Oral Intake NPO since Meds taken in AM with sips of water? Meds patient instructed to take am of surgery PONV PONV - emergency dispatch operator: PONV - emergency dispatch operator Female Yes 12/10/24 10:15 HX of Motion Sickness Yes 12/10/24 10:15 HX of N/V After Surgery No 12/10/24 10:15 Non-Smoker Yes 12/10/24 10:15 Duration of Surgery greater No 12/10/24 10:15 than 60 minutes Number of Risk Factors 3 12/10/24 10:15 PONV Score Moderate Risk 12/10/24 10:15 Height & Weight Height & Weight: Anesthesia: Height & Weight Height 5 ft 4 in 10/17/24 11:04 Respiratory Assessment Respiratory Assessment - emergency dispatch operator: Respiratory Tract Infection Hx - emergency dispatch operator Hx Respiratory Tract Infection No 12/10/24 10:15 STOP Sleep Apnea STOP Sleep Apnea - emergency dispatch operator: STOP Sleep Apnea - emergency dispatch operator Hx Hypertension Yes 12/10/24 10:15 Hx Sleep Apnea No 12/10/24 10:15 CPAP BIPAP Do you snore loudly (louder No 12/10/24 10:15 than talking or can be heard Do you often feel tired/ No 12/10/24 10:15 fatigued/ sleepy during daytime? Has anyone observed you stop No 12/10/24 10:15 breathing during sleep? STOP Results Negative 12/10/24 10:15 QUESTION #5 FULL TEXT : Do you snore loudly (louder than talking or can be heard through closeddoors)? 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 Specify any problems Hx of Preganancy in last 3 No 12/10/24 10:15 Months Nurse Filling Out Transfusion MGRIFFITH 12/10/24 10:15 & Questions: Date: 12/10/24 12/10/24 10:15 Time: 10:15 12/10/24 10:15 Patient unable to answer at this time (ie. confused, unrespo /Reproduction History /Reproductive History - emergency dispatch operator: /Reproductive Hx- emergency dispatch operator Hx Now No 12/10/24 10:15 Gestational Age (in weeks): EDC: Hx Hx Para Hx Section SAB No 12/10/24 10:15 Active Medications Active Medications: Current Medications Generic Name Dose Route Start Last Admin Trade Name Freq PRN Reason Stop Dose Admin Lactated Ringer's 1,000 mls @ 15 mls/hr 12/12/24 10:45 IV .Q48H GEM PFSH Medical History Wears glasses MRSA infection Gastric reflux Non-smoker Monoallelic mutation of MUTYH gene Anxiety Vision problems Thyroid disease GERD (gastroesophageal reflux disease) High blood pressure Breast lump Back problem Arthritis Seasonal allergies Home Medications ?Medication ?Instructions ?Recorded ?Last Taken ?Type calcium carbonate 600 mg PO QDAY 04/19/24 Unkn own History qnnecizqnjz-cet-oshqrpsva-hrb 1 tab PO DAILY 04/19/24 Unknown History 149-hyalur 500 mg-500 mg-66.7 mg tablet (Dyqkespuhqa-Kgzhypgwwyi-DAQ (with antiox)) montelukast 10 mg tablet 10 mg PO QDAY 04/19/24 Unkno wn History citalopram 20 mg tablet (Celexa) 40 mg PO QDAY 5 Unknown History lisinopril 10 mg tablet 10 mg PO QDAY #90 tabs 05/22 Unknown Rx fexofenadine 60 mg tablet (Ajz 180 mg PO QDAY 10/07 06/02 Unknown History Allergy) magnesium 250 mg tablet 400 mg PO QDAY 10/17/24 Unkn own History meloxicam 15 mg tablet 15 mg PO QDAY PRN pain 10/17 Unknown History metoprolol succinate 50 mg 50 mg PO QDAY #90 tabs 10/08 09/30 Unknown Rx tablet,extended release 24 hr levothyroxine 50 mcg tablet 50 mcg PO QDAY #90 tabs Unknown Rx (Synthroid) Allergy/AdvReac Type Severity Reaction Status Date / Time cefdinir (From Omnicef) Allergy Mild unknown Verified 12/07/24 11:23 Family History Father Heart disease Arthritis Cancer [...] Hypertension Grandfather Myocardial infarction Aunt Breast cancer Surgical History History of D&C H/O colonoscopy H/O lateral meniscus repair of left knee History of surgery Social History household members: spouse housing: house current occupational status: employed 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 12/12/24 1051 > Date _ Ray Nguyen Signature: Date CC: ~ Signed [facility]2025 Evaluation note* Diagnosis Onset Date Resolution Status Admit Date GERD (gastroesophageal reflu x disease) acute October 17, 2024 9:48am Monoallelic mutation of MUTY H gene acute October 17, 2024 9:48am GERD (gastroesophageal reflu x disease) acute December 12, 2024 10:40am H/O colonoscopy acute December 10:40am Monoallelic mutation of MUTY H gene acute December 12, 2024 10:40am [facility] Work Phone: [phone] [facility] Gastro[facility] [address] [place] [address] OFFICE VISIT Date of Service: 10/17/24 MR#: [id number] Acct: [id number] Name: RYLEE ROPER Rep #: [id number] : 1965 Provider: LOAN Deleon Age/Sex: 59/F Location[facility] Status: Signed Intake Vital Signs 04/19/24 13:35 [...] Reasons: Pre colon Chief Complaint: est care Outside Sales Inspector Required: No Accompanied by: Self Is patient in pain?: No Allergies cefdinir (From [employer]isorticeGran[employer]) Allergy (Mild, Verified 10/17/24 10:08) unknown Medications ?Medication ?Instructions ?Recorded ?Confirmed ?Type calcium carbonate 600 mg PO QDAY 04/19/2410/07 History ktbclkgqafc-iay-ukjzxbrbi-hrb tab PO 04/19/24 10/17/24 History 149-hyalur 500 mg-500 mg-66.7 mg tablet (Papxhhgjsap-Oldqsjgovnc-HJQ (with antiox)) montelukast 10 mg tablet 10 [...] ring. Gets a colonoscopy every year. 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 Her last procedures were performed November 2023 and I have requested a copy of her previous procedure reports. She alsoreports a history of GERD with schatzki's ring, last dilation approximately 3 years ago. HB symptoms are infrequent and is taking PPI PRN. She reports only experiencing dysphagia with cold liquids and drinking fast; denies any dysphagia to solids. She will proceed with bidirectional endoscopies. Note: [employer] speech recognition sales receptionist software was used to create portions of this document. Sound-alike and misspelled words, as well as other sales receptionist errors may be contained in the documentation. Patient Instructions: Colon & EGD - Miralax prep Coding Level of Care Code Off vis,new,level 3 Diagnoses Monoallelic mutation of MUTYH gene Z15.89 GERD (gastroesophageal reflux disease) K21.9 Clinical Quality Measures Smoking Screening Smoking Status: Never smoker 10/17/24 1041 charisma [facility]> Date _ Jayashree Pancho [facility] Cosigner Signature: Date (if applicable) CC: ~ [facility]12-12-2024 Evaluation note* Diagnosis Onset Date Resolution Status Admit Date Monoallelic mutation of MUTY H gene acute April 19 1:15pm Immunization declined noneactive Dec ember 2023 1:15pm Acquired hypothyroidism noneactive D ecember 2023 1:15pm Establishing care with new doctor, encounter for noneactive April 082023 1:15pm Lipoma noneactive April 19, 2024 1:15pm Screening for cervical cancer noneac tive April 19, 2024 1:15pm Anxiety noneactive April 19, 2024 1:15pm Seasonal allergies noneactive Decemb er 2023 1:15pm Essential hypertension noneactive De cember 2023 1:15pm Chronic pain of both knees noneactiv e April 19, 2024 1:15pm GERD (gastroesophageal reflu x disease) noneactive April 19 1:15pm Encounter for routine gynecological examination noneactive Michaelr y 2024 1:37pm [facility] Work Phone: 1(495) 538-324608-16-2024 Evaluation + Plan note Future Scheduled Tests Radiology* US Thyroid 12/23/23 [facility] 07-12-2024 NoteProgress Note-Physician Patient: RYLEE ROPER Age: [...] All Problems Seasonal allergies / SNOMED CT [id number] / Confirmed Colon polyp / SNOMED CT 048462305 / Confirmed MYH-associated polyposis (MAP) / SNOMED CT 6435382836 / Confirmed Menorrhagia / SNOMED CT [id number] / Confirmed Omaira's gland hyperplasia of duodenum / SNOMED CT 250990655 / Confirmed HTN (hypertension) / SNOMED CT 3533OD6P-[id number]-EAB770FQ1024 / Confirmed History of colon polyps / SNOMED CT 1726359403 / Confirmed Hemorrhoids / SNOMED CT 056972130 / Confirmed Chronic GERD / SNOMED CT 980818121 / Confirmed GERD with esophagitis / SNOMED CT 851234230 / Confirmed Fundic gland polyps of stomach, benign / SNOMED CT 565059852 / Confirmed Family history of breast cancer in mother / SNOMED CT 1323374548 / Confirmed Family history of colon cancer / SNOMED CT 596181461 / Confirmed Extreme obesity / ICD-9-CM 278.01 / Possible MRSA (methicillin resistant staph aureus) culture positive / SNOMED CT 6754757640 / Confirmed MRSA breast abscess 01/26/2020 Arthritis / SNOMED CT [id number]-[id number]-WFR0E615H816 / Confirmed Anxiety / SNOMED CT [id number]-G1718Z544RL6 / Confirmed Antral ulcer / SNOMED CT 7016057725 / Confirmed Gas pain / SNOMED CT 026808916 / Confirmed Resolved: Dysphagia / SNOMED CT 14994273 Histories Procedure history: Colonoscopy ([id number]) on 09/15/2022 at 57 Years. Esophagogastroduodenoscopy ([id number]) on 09/15/2022 at 57 Years. hysteroscopy, dilation and curettage ablation on 05/01/2013 at 47 Years. d&c. Comments: 04/18/2013 12:46 MICHAEL Burt RN, Анна x2 for misscarriage. Social History Social & Psychosocial Habits Alcohol 06/16/2023 Risk Assessment: Denies Alcohol Use 06/16/2023 Use: Current Comment: denies - 12/12/2019 15:55 - Nahum DÍAZ, Jayashree Isaacs Exercise Comment: Walking 1-2 times a week - 12/11/2018 17:44 - Maycol HENDERSON, [place] Other 06/16/2023 Name: Caffeine- 2-3 cups daily [...] adequate air exchange. Cardiovascular: Regular rhythm. Plan [place] [employer] of Anesthesiologists (ASA) physical status classification: Class III. Anesthetic Preoperative Plan: Anesthesia General.[facility] Comment on above:Result Comment: Electronically Signed By: Harsh Arellano Jr, DO\\.br\\Date and Time Signed: 11/18/23 09:19 [id number] NoteProgress Note-Physician Patient: RYLEE ROPER Age: 58 [...] Discharge when meets criteria ( To home ).[facility] Comment: Electronically Signed By: Harsh Arellano Jr, DO\\.br\\Date and Time Signed: 11/18/23 09:17 EDT 11-16-2023 [...] polyps. Follow these instructions at home: Take zpub-vqn-lavbelh and prescription medicines only as told by [...] provider. Document Revised: 06/22/2022 Document Reviewed: 06/22/2022 [employer] Patient Education 2022 [employer]. 11/16/2023 13:16:26 Upper Endoscopy, Adult, Care After [...] what activities are safe for you. Take ridg-uzr-xypmvfj and prescription medicines only as told by [...] provider. Document Revised: 08/04/2022 Document Reviewed: 08/04/2022 [employer] Patient Education 2022 [employer]EL[employer]. 11/16/2023 13:16:14 Gastritis, Adult Gastritis, Adult Gastritis [...] medicines. These include steroids, antibiotics, and some ksol-fqn-vgvoskm medicines, such as aspirin or ibuprofen. Having [...] Follow these instructions at home: Medicines Take wxjg-rle-yjohmcv and prescription medicines only as told by [...] provider. Document Revised: 08/29/2021 Document Reviewed: 08/29/2021 [employer] Patient Education 2022 [employer]EL[employer]. 11/16/2023 13:16:12 Hiatal Hernia Hiatal Hernia A [...] reduce GERD symptoms. Medicines. These may include: ?Gcme-gmx-iywzkom antacids. ?Medicines that make your stomach empty [...] may include: ?Fatty foods, like fried foods. ?[place] fruits, like oranges or lemon. ?Other foods [...] Do not drink alcohol. General instructions Take zlmh-klz-tekllop and prescription medicines only as told by [...] provider. Document Revised: 06/22/2022 Document Reviewed: 06/22/2022 [employer] Patient Education 2022 [employer]. 11/16/2023 13:16:09 Colonoscopy, Care After Surgery [...] 3 times a day. General instructions Take jsgu-oxe-gxazjmn and prescription medicines only as told by [...] provider. Document Revised: 11/04/2021 Document Reviewed: 11/04/2021 [employer] Patient Education 2022 [employer]. 11/16/2023 13:16:06 Colon Polyps Colon Polyps [...] hard liquor (44 mL). General instructions Take qsxj-nti-estdunp and prescription medicines only as told by [...] provider. Document Revised: 08/13/2020 Document Reviewed: 08/13/2020 [employer] Patient Education 2022 [employer]EL[employer]. Follow Up Care 06/16/2023 11:21:56 With:Sole WATKINS, YESENIA [place], [facility] Address: [address] [place] [address], [address] [place] [address] [phone] When: Unknown Comments:will call for follow up [facility]07-10-2024 NotePatient Education - Text Colonoscopy Care After Surgery Please read the instructions outlined below and refer to this sheet in the next few weeks. These discharge instructions provide you with general information on caring for yourself [facility] Your doctor may also give you specific [...] activities are safe for you. ? Take bjhy-cna-aypuppv and prescription medicines only as told by [...] provider. Document Revised: 08/04/2022 Document Reviewed: 08/04/2022 [employer] Patient Education ? 2022 [employer]. Hiatal Hernia A hiatal hernia occurs [...] allows stomach acid to (more content not included)...[facility] 11-16-2023 NoteColonoscopy Procedure Report Patient: RYLEE ROPER Age: 58 years Sex: Female : 1965 Associated Diagnoses: None Author: Louise Whipple MD Pre-Procedure Procedure Date 11/16/2023 13:06:00 . Procedure Type: Colonoscopy with removal of tumor(s), polyp(s), or other lesion(s) by cold snare technique. Procedure provider Performed by Louise Whipple MD. Current history and physical Documented on chart. Colonoscopy ([id number]) on 09/15/2022 at 57 Years. Esophagogastroduodenoscopy ([id number]) on 09/15/2022 at 57 Years. hysteroscopy, dilation and curettage ablation on 05/01/2013 at 47 Years. d&c. Comments: 04/18/2013 12:46 MICHAEL Burt RN, [facility] x2 for misscarriage.. Past Medical History Active HTN (hypertension) (7059PC8U-[id number]-IFK957KB4317) Seasonal allergies (Y92755OY-477D-76O5-428N-7897B0BTW517) Arthritis (64SQ4276-0B3A-14W1-0P8U-DEQ8Q526U720) Anxiety (YM02C128-6V55-5O08-2950-I8197S050XF4) Menorrhagia (37B95W76-9P43-56S0-D843-EU9155L42D4J) Resolved Dysphagia (85626575): Resolved.. Family History Primary malignant neoplasm of colon Other Relationship Primary malignant neoplasm of female breast Mother . Procedure History Colonoscopy ([id number]) on 09/15/2022 at 57 Years. Esophagogastroduodenoscopy ([id number]) on 09/15/2022 at 57 Years. hysteroscopy, dilation [...] internal hemorrhoids Images Procedure images: Rec_hd_video___52_43_[id number].jpg Rec_hd_video___59_13_176.jpg Rec_hd_video___04_33_395.jpg Rec1_hd_video___07_17_155.jpg Rec1_hd_video___08_31_459.jpg Rec_hd_video___09_27_703.jpg . Post-Procedure Complications: none. Estimated blood loss: Minimal. Specimens: sent (more content not included)...[facility]Other Comment: Missing Attachment - attachment storage system not supported [id number] Can be viewed in source system Missing Attachment - attachment storage system not supported [id number] Can be viewed in source systemMissing Attachment - attachment storage system not supported [id number] Can be viewed in source systemMissing Attachment - attachment storage system not supported 5823290 Can be viewed in source systemMissing Attachment - attachment storage system not supported [id number] Can be viewed in source systemMissing Attachment - attachment storage system not supported [id number] Can be viewed in source -[phone] Hospital Discharge instructions Patient Education 06/16/2023 10:43:18 [...] hard liquor (44 mL). General instructions Take eegx-rjj-ouvfrbr and prescription medicines only as told by [...] provider. Document Revised: 08/13/2020 Document Reviewed: 08/13/2020 [employer] Patient Education 2022 [employer]. Follow Up Care 12/14/2022 11:27:05 With:Susie Porter CNP Address: When:1 to 2 weeks Comments:Following EGD/Colonoscopy. [facility] 08-08-2023 Hospital Discharge instructions [...] equals one 12 oz bottle of beer (911 mL), one 5 oz glass of wine (148 mL), or one 1 oz glass of hard liquor (44 mL). General instructions Take mere-svs-ipzlwwt and prescription medicines only as told by [...] provider. Document Revised: 08/13/2020 Document Reviewed: 08/13/2020 [employer] Patient Education 2022 [employer]EL[employer]. Follow Up Care 09/28/2022 10:35:59 With:Susie Porter CNP Address: When:6 months [facility] 05-10-2023 Hospital Discharge instructions Patient Education 09/15/2022 14:26:41 Colonoscopy, Care After Surgery Salam (CUSTOM) Colonoscopy Care After Surgery Please read the instructions outlined below and refer to this sheet in the next few weeks. These discharge instructions provide you with general information on caring for yourself [facility] Your doctor may also give you specific [...] worse throughout the day. 09/15/2022 14:26:37 Hemorrhoids, Aoir-tn-Bpov Hemorrhoids Hemorrhoids are swollen veins that may [...] 3 times a day. General instructions Take zmxu-koa-hfzaiim and prescription medicines only as told by [...] provider. Document Revised: 11/04/2021 Document Reviewed: 11/04/2021 [employer] Patient Education 2022 [employer]. 09/15/2022 14:26:33 Colon Polyps Colon Polyps Colon [...] hard liquor (44 mL). General instructions Take acxt-tyo-aahfcba and prescription medicines only as told by [...] provider. Document Revised: 08/13/2020 Document Reviewed: 08/13/2020 [employer] Patient Education 2022 [employer]. 09/15/2022 14:26:31 Endoscopy, Care After Procedure [facility] Endoscopy Care After Procedure Please read the instructions outlined below and refer to this sheet in the next few weeks. These discharge instructions provide you with general information on caring for yourself [facility]. Your doctor may also give you specific [...] Document Re-Released: 10/17/2006 ExitCare Patient Information 2009 [employer]. Follow Up Care 07/19/2022 15:08:11 With:ASA WATKINS, YESENIA [place], [facility] Address: [address] [place] [address]. [address] [place] [address] When: Unknown Comments:Office will call to schedule follow up appointment [facility]05-10-2023 Evaluation + Plan noteExtracted from: Title:CSB post op Author:Dorian WATKINS, Kevin Helm Date:09/15/22 Plan Transfer/Discharge: Transfer/Discharge Discharge when meets criteria ( To home ). Extracted from: Title:ANES Pre-operative Note 2022 Author:Harsh Arellano Jr, DO Date:09/15/22 Plan [place] Society of Anesthesiologists (ASA) physical status classification: Class III. Anesthetic Preoperative Plan: Anesthesia General. [facility]05-03-2023 Hospital Discharge instructions Patient Education 09/08/2022 21:20:47 [...] limityour activities and whether you should start jleua-gz-mixmix exercises for your injury. Ice Ice your [...] provider. Document Revised: 06/30/2020 Document Reviewed: 01/13/2018 [employer] Patient Education 2020 [employer]. 09/08/2022 21:20:47 Acute Knee Pain, Adult Acute [...] pillow under your knee. General instructions Take doll-ugc-rbhruhc and prescription medicines only as told by [...] provider. Document Revised: 10/08/2020 Document Reviewed: 10/08/2020 [employer] Patient Education 2022 [employer]. Follow Up Care 09/08/2022 20:33:07 With:Olga Brian Address: [address] [place] [address] Business (1) When:09/11/2022 21:20:18 Comments:Follow-up with orthopedic surgery for evaluation of 2 weeks of knee pain With:Mike Peralta Address: [address] [facility] [place] [address]- Business (1) When:Within 3 Day(s) [facility]05-03-2023 Evaluation + Plan noteExtracted from: Title:ED Note Author:Huang Schumacher PA-C Ori e:09/08/22 Knee pain (M25.569: Pain in unspecified knee) Orders: ketorolac, 60 mg = 2 mL, Injection, IntraMuscular, Once, Stop date 09/08/22 21:17:00 EDT, STAT, Start date 09/08/22 21:17:00 EDT, 09/08/22 21:17:00 EDT predniSONE, 60 mg = 3 tab(s), Oral, Daily, X 5 day(s), # 15 tab(s), Refills(s) 0, Pharmacy: [facility], 170, cm, 09/08/22 20:53:00 EDT, Height/Length Dosing, 114.7, kg, 09/08/22 20:53:00 EDT, Weight Dosing Future Appointments Appointment Date:09/15/2022 01:45:00 PM Scheduled Provider: Location:[facility] Appointment [facility] Author Sebastian Sanchez [facility] Note Date/Time December 12, 2024 12: 45pm [facility] Medical Records Department [address] [place] [address] Anesthesia Postop Eval I 12/12/24 1244 MR#: [id number] Acct: [id number] Name: RYLEE ROPER Rep #:[id number] : 1965 59 From: Sebastian Sanchez PCP: Dr. Marcelina Anderson MD Status:REG SDC Y Race: C Location: [place] [address] Anesthesia: Postop Eval I Current Vital Signs Temperature: 97.4 F Pulse Rate: 61 Blood Pressure: 121/65 Respiratory Rate: 16 Pulse Ox: 96 Oxygen Delivery Method: Room Air Assessment Airway patent: Yes Spontaneous unlabored respirations: Yes Mental status: Asleep nausea: No Vomiting: No Anesthesia Complication: No Fluid Hydration Crystalloid volume administer (ml): 600 Total IV fluid infused: 600 Progress Note Anesthesia document: Postop Eval 1 completed: Yes 12/12/24 5265 <Electronically signed by Sebastian Sanchez > Date _ Sebastian Nguyen Signature: Date CC: ~ Signed [facility] Work Phone: Evaluation + Plan note Future Appointments Appointment Date:04/05/2022 11:00:00 AM Scheduled Provider: Location:[facility] Appointment Type:Surgery PAT COVID Testing Appointment Date:04/12/2022 02:30:00 PM Scheduled Provider: Location:[facility] Appointment Type:Surgery FT [facility] Evaluation + Plan note Future Appointments Appointment Date:09/15/2022 01:45:00 PM Scheduled Provider: Location:[facility] Future Appointments Appointment Date:12/14/2022 10:40:00 AM Scheduled Provider:Susie Porter CNP Location:[facility] Appointment Type:BAD [facility] Future Appointments Appointment Date:06/16/2023 10:40:00 AM Scheduled Provider:Susie Porter CNP Location:[facility] Appointment Type:[facility] Follow Up [facility] Evaluation + Plan note Future Appointments Appointment Date:06/30/2023 02:15:00 PM Scheduled Provider: Location:.MAMMOGRAM Appointment Type:MA Screen () Appointment Date:06/30/2023 02:30:00 PM Scheduled Provider: Location:.BD Appointment Type:BD Bone Density () Appointment Date:11/16/2023 12:15:00 PM Scheduled Provider: Location:[facility] Appointment Type:Surgery FT Future Scheduled Tests Radiology* BD Bone Density DEXA 06/30/23 * MA Mamm Screen w/CAD if perf and 3D Randall 06/30/23 [facility] Evaluation + Plan note Future Appointments Appointment Date:11/16/2023 12:15:00 PM Scheduled Provider: Location:[facility]* Diagnosis Onset Date Resolution Status Admit Date GERD (gastroesophageal reflu x disease) acute October 17, 2024 9:48am Monoallelic mutation of MUTY H gene acute October 17, 2024 9:48am [facility] Work Phone: History and physical note Author Rishi Friend [facility] Note Date/Time December 12, 2024 11: 45am [facility] Medical Records Department [address] [place] [address] History & Physical Exam 12/12/24 1143 MR#: [id number] Acct: [id number] Name: RYLEE ROPER Rep #:[id number] : 1965 59 From: Rishi Tse DO PCP: Dr. Marcelina Anderson MD Status:[facility] Location: [address] HPI - General General Date of Admission: 01/09/25 Date of Service: 12/12/24 Chief Complaint: GERD and family history of colon cancer HPI Narrative RYLEE ROPER, is a 59 F who presents Chief Complaint: Photo surveillance of GERD and family history of colon cancer 1st cousin with colon CA at an [...] disease - non-smoker - rare EtOH use PFSH Medical History Wears glasses MRSA infection Gastric reflux Non-smoker Monoallelic mutation of MUTYH gene Anxiety Vision problems Thyroid disease GERD (gastroesophageal reflux disease) High blood pressure Breast lump Back problem Arthritis Seasonal allergies Home Medications ?Medication ?Instructions ?Recorded ?Last Taken ?Type calcium carbonate 600 mg PO QDAY 04/19/2409/30 History pvkfmqjfjyj-kib-ajburaqnl-hrb 1 tab PO DAILY 04/19/24 12/11/24 History 149-hyalur 500 mg-500 mg-66.7 mg tablet (Avenwsnhnxq-Olnbxvdwpmh-EUY (with antiox)) montelukast 10 mg tablet 10 mg PO QDAY 04/19/2412/11 History citalopram 20 mg tablet (Celexa) 40 mg PO QDAY 5 12/11/24 History lisinopril 10 mg tablet 10 mg PO QDAY #90 tabs 05/2212/12/24 06:30 Rx fexofenadine 60 mg tablet (Jaz 180 mg PO QDAY 10/0712/11/24 History Allergy) magnesium 250 mg tablet 400 mg PO QDAY 10/17/2409/30 History meloxicam 15 mg tablet 15 mg PO QDAY PRN pain 10/1712/11/24 History metoprolol succinate 50 mg 50 mg PO QDAY #90 tabs 10/0812/12/24 06:30 Rx tablet,extended release 24 hr levothyroxine 50 mcg tablet 50 mcg PO QDAY #90 tabs 12/11/24 Rx (Synthroid) Allergy/AdvReac Type Severity Reaction Status Date / Time cefdinir (From [employer]) Allergy Mild unknown Verified 12/07/24 11:23 Family History Father Heart disease Arthritis Cancer [...] Hypertension Grandfather Myocardial infarction Aunt Breast cancer Surgical History History of D&C H/O colonoscopy H/O lateral meniscus repair of left knee History of surgery Social History household members: spouse housing: house current occupational status: employed current occupation: [employer], Smoking Status: Never smoker alcohol intake: current alcohol intake frequency: holidays/special occasions only substance use type: does not use what type of physical activity do you participate in: none seatbelt use: always do you feel safe at home: Yes 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) ROS Constitutional Constitutional: Denies fatigue, fever(s), poor appetite, weight gain or weight loss Gastrointestinal Gastrointestinal: Denies belching, bloating, change in bowel habits, change in stool character, chewing difficulty, coffee ground emesis, constipation, cramping, diarrhea, dyspepsia, dysphagia, early satiety, excessive flatus, fecalincontinence, heartburn, hematemesis, hematochezia, hemorrhoids, loose stools, melena, nausea, odynophagia, rectal bleeding, tenesmus, vomiting or weight changes Vital Signs Vital Signs Vital Signs: 12/12/24 11:14 12/12/24 11:14 Temperature 97.1 F L Temperature Source Temporal Pulse Rate 74 Respiratory Rate 16 Respiratory Pattern Normal Blood Pressure 153/90 H Blood Pressure Mean 111 Blood Pressure Source Monitor Blood Pressure Position Sitting Blood Pressure Location Right Arm Pulse Ox 100 Oxygen Delivery Method Room Air Weight Weight: 253 lb 8.505 oz Body Mass Index (BMI) 42.2 Physical Exam Const alert, oriented x3, no apparent distress and healthy appearing General Appearance: cooperative GI normal to inspection, nondistended, normoactive bowel sounds, soft to palpation,non-tender and non-distended Percussion: normal to percussion Rectal Exam: deferred Assessment & Plan Assessment/Plan (1) GERD (gastroesophageal reflux disease): (2) H/O colonoscopy: (3) Monoallelic mutation of MUTYH gene: PLAN: Assessment and Plan Assessment and Plan (1) Monoallelic mutation of MUTYH gene: Status: Acute Comment: Genetic testing 08/15/2018, MUTYH, c.536A>G ([id number]). This confirms she is a carrier for [...] She will proceed with bidirectional endoscopies. Note: [employer] speech recognition sales receptionist software was used to create portions of this document. Sound-alike and misspelled words, as well as other sales receptionist errors may be contained in the documentation. Patient Instructions: Colon & EGD - Miralax prep 12/12/24 1145 <Electronically signed by Rishi Tse DO> Cosigner Signature (if applicable): CC: Dr. Marcelina Anderson MD; Rishi Tse DO~ Signed [facility] Work Phone: Hospital course Narrative No data available for this section [facility] Hospital Discharge instructions No data available for this section [facility] Progress note No data available for this section [facility] progress note Author Jayashree Deleon [facility] Note Date/Time October 17, 2024 10:[address] [facility] [address] [place] [address] OFFICE VISIT Date of Service: 10/17/24 MR#: [id number] Acct: [id number] Name: RYLEE ROPER Rep #: [id number] : 1965 Provider: LOAN Deleon Age/Sex: 59/F Location: [facility] Status: Signed Intake Vital Signs 04/19/24 13:35 [...] Reasons: Pre colon Chief Complaint: est care Outside Sales Inspector Required: No Accompanied by: Self Is patient in pain?: No Allergies cefdinir (From [employer]) Allergy (Mild, Verified 10/17/24 10:08) unknown Medications ?Medication ?Instructions ?Recorded ?Confirmed ?Type calcium carbonate 600 mg PO QDAY 04/19/2410/07 History aznmompkxvo-dab-lazurwtjg-hrb tab PO 04/19/24 10/17/24 History 149-hyalur 500 mg-500 mg-66.7 mg tablet (Byniogajktp-Rattitvyddh-KQJ (with antiox)) montelukast 10 mg tablet 10 [...] ring. Gets a colonoscopy every year. 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 This confirms she is a carrier for [...] She will proceed with bidirectional endoscopies. Note: [employer] speech recognition sales receptionist software was used to create portions of this document. Sound-alike and misspelled words, as well as other sales receptionist errors may be contained in the documentation. Patient Instructions: Colon & EGD - Miralax prep Coding Level of Care Code Off vis,new,level 3 Diagnoses Monoallelic mutation of MUTYH gene Z15.89 GERD (gastroesophageal reflux disease) K21.9 Clinical Quality Measures Smoking Screening Smoking Status: Never smoker 10/17/24 1041 <Electronically signed by Jayashree CATES> Date _ Jayashree CATES Cosigner Signature: Date (if applicable) CC: ~ [facility] [employer] Work Phone: Reason for referral (narrative) , screening for skin cancer Referred by: Sole WATKINS, Mohamad A. [facility] Reason for referral (narrative)No reason for referral [facility] Work Phone: Summary Purpose Family History No [...] Unknown Advance Directives No Advanced Directives Records Found Advance Directive Response Recorded Date/ Time Do you have a Healthcare Power of Intern Architect? Yes December 10, 2024 10:15am Chief Complaint and Reason for Visit Chief Complaint Admit Date MUTATION OF MUTYH GENE April 02 1:50pm [facility] - [facility] SENT April 19 1:15pm Annual ([facility]) May 16, 2024 1: 37pm SCREENING July 03, 2024 10:40am Reason for Visit Admit Date Monoallelic mutation of MUTYH gene Decem 2023 1:15pm Immunization declined April 19 1:15pm Acquired hypothyroidism April 19 1:15pm Establishing care with new doctorpopeye for [...] Admit Date GERD (gastroesophageal reflux disease) J une 2024 9:48am Monoallelic mutation of MUTYH gene October 17, 2024 9:48am Chief Complaint Admit Date Pre colon October 17, 2024 9:48 am Reason for Visit Admit Date GERD (gastroesophageal reflux disease) J une 2024 9:48am Monoallelic mutation of MUTYH gene October 17, 2024 9:48am GERD (gastroesophageal reflux disease) A ugust 2024 10:40am H/O colonoscopy December 12, 2024 10: 40am Monoallelic mutation of MUTYH gene Augus t 2024 10:40am Additional Source Comments INFORMATION SOURCE (unrecogn ized section and content) DATE CREATED AUTHOR 08/12/2018 [facility] DATE CREATED AUTHOR AUTHOR'S ORGANIZ ATION 02/20/2023 [facility] DATE CREATED AUTHOR AUTHOR'S ORGANIZ ATION 08/17/2023 [facility] DATE CREATED AUTHOR AUTHOR'S ORGANIZ ATION 11/28/2023 [facility] DATE CREATED AUTHOR AUTHOR'S ORGANIZ ATION 12/24/2023 [facility] DATE CREATED AUTHOR AUTHOR'S ORGANIZ ATION [facility]20[facility] DATE CREATED AUTHOR AUTHOR'S ORGANIZ ATION 01/10/2025 [facility] Patient Care team informatio n [...] October 17, 2024 End: October 17, 2024 CHANDRA LowryC Attending Provider Active Start: October 17, 2024 End: October 17, 2024 Team Status: Active Member Role/Relationship Status Dates Dr. Marcelina Anderson MD Primary Care Provider Active Team Status: Inactive Member Role/Relationship Status Dates Dr. Marcelina Anderson MD Primary Care Provider Active Start: October 17, 2024 End: October 17, 2024 Dr. Marcelina Anderson MD Referring Provider Active Start: October 17, 2024 End: October 17, 2024 CHANDRA LowryC Attending Provider Active Start: October 17, 2024 End: October 17, 2024 Team Status: Inactive Member Role/Relationship Status Dates Dr. Marcelina Anderson MD Primary Care Provider Active Start: December 12, 2024 End: December 12, 2024 Dr. Marcelina Anderson MD Referring Provider Active Start: December 12, 2024 End: December 12, 2024 Dr. Rishi Tse DO Attending Provider Active Start: December 12, 2024 End: December 12, 2024 Team Status: Active Member Role/Relationship Status Dates Dr. Marcelina Anderson MD Primary Care Provider Active Start: December 12, 2024 Dr. Marcelina Anderson MD Referring Provider Active Start: December 12, 2024 Dr. Rishi Tse DO Attending Provider Active Start: December 12, 2024 Dr. Rishi Tse DO Other Provider Active St art: December 12, 2024 Goals (unrecognized section and content) Goals [...] BE BASED ON THE PRIMARY CLINICAL RECORDS. [employer] [facility]. provides no warranty or guarantee of the accuracy or completeness of information in this document.
== END | disposition home or self-care (01) ==
LOC: MTRAD 16:12
PROVIDERS: PCP Internal Medicine; Referring Provider Physician Assistant Surgical; Visit Provider Physician Assistant Surgical
DX: S99.919A Unspecified injury of unspecified ankle, initial encounter (principal)
CPT/HCPCS: 73610

== ENCOUNTER → 2025-04-24 | Outpatient (CLI) | payer OTHER, SELFPAY ==
[2025-04-24 10:44] LABS: Hematocrit 42.9 % (37-47); Hemoglobin 14.1 g/dL (12.0-15.0); Immature Granulocytes Count 0.040 X10^3/uL (0.0-0.0); Mean Corp Hgb Conc 32.9 g/dL (32-36); Mean Corpuscular Volume 86.0 fL (81-99); Mean Platelet Vol. 10.6 fl (6.2-12.0); NRBC Flagged by Analyzer 0 % (0-5); Platelet Count 269 K/mm3 (150-450); RBC Distribution Width CV 12.8 % (11.6-14.6); RBC Distribution Width SD 40.1 fl (35.1-43.9); Red Blood Count 4.99 M/mm3 (4.2-5.4); White Blood Count 7.2 K/mm3 (4.4-11.0)
[2025-04-24 11:26] LABS: Cholesterol 220 mg/dL (<=200); Low Density Lipoprotein Calc. 135 mg/dL; Triglycerides 207 mg/dL; Very Low Density Lipoprotein 41 mg/dL (5-40); cholesterol:hdl ratio screen 4.61
[2025-04-24 11:32] LABS: AST(SGOT) 25 U/L (<=31); Alanine Aminotransfer ALT/SGPT 26 U/L (<=34); Albumin, Serum 4.2 g/dL (3.5-5.0); Alkaline Phosphatase 66 U/L (35-104); Anion Gap 13 (5-15); BUN 13 mg/dL (4-19); BUN/Creat Ratio 16.3 RATIO (10-20); Calcium,Total 9.1 mg/dL (7.6-11.0); Carbon Dioxide 20.6 mmol/L (21.0-32.0); Chloride 104 mmol/L (98-108); Globulin 2.7 g/dL (2.2-4.2); Glucose 115 mg/dL (70-99); Potassium 4.6 mmol/L (3.3-5.1)
== END | disposition home or self-care (01) ==
LOC: LAB 10:13
PROVIDERS: PCP Internal Medicine; Referring Provider Internal Medicine; Visit Provider Internal Medicine
DX: Z00.00 Encounter for general adult medical examination without abnormal findings (principal); I10 Essential (primary) hypertension; E03.9 Hypothyroidism, unspecified
CPT/HCPCS: 36415; 80053; 80061; 84443; 85025